=== PATIENT | female | born 1955 | race Caucasian/White ===

== ENCOUNTER 2017-07-30 12:30 | Outpatient (RCR) | payer MEDICARE ==
[~2017-07-30 12:30] MED LIST: ACE325 PO; BACDS PO; CALC-521 PO; CALC-605 PO; CEFU500T50 PO; CEPH500C24 PO; CHOL10005 PO; CLIN300C99 PO; DIPH-740 PO; FURO-45 PO; FURO20TA19 PO; GABA-547 PO; GABA-549 PO; GLUC-396 PO; INSU100C12 SQ; INSU100I34; KET10 PO; LACT1CAP74 PO; LANI SUBQ; LANS15CA54 PO; LANS15TA13 PO; LEVO250T55 PO; LEVO25TA61 PO; LEVO750T44 PO; LEXAPRO; LOR5/325 PO; LYRICA PO; METO25TA23 PO; MIDO5TAB20 PO; MV-M1TAB28; PANT40TA65 PO; PER PO; POT10 PO; RAN150 PO; SITA1TAB16 PO; SUCR1TAB85 PO; VIT-7 PO; ZOS3.375P IV; ZOSYN; [UNRECOGNIZED DRUG - CODE] IVPB; [UNRECOGNIZED DRUG - CODE] PO
== END 2017-09-03 ==
LOC: RESP 12:30
PROVIDERS: ATTEND Internal Medicine
DX: R09.02 Hypoxemia (principal); R06.09 Other forms of dyspnea; I27.20 Pulmonary hypertension, unspecified
CPT/HCPCS: G0239

== ENCOUNTER 2017-08-26 05:47 | Outpatient (RCR) | payer MEDICARE ==
[~2017-08-26 05:47] MED LIST changes: +DEXTROSE 50% 50 ML SYR IVP PRN; +DIALYSIS ACETAMINOPHEN 325 MG PO PRN; +LIDOCAINE/PRILOCAINE 30GM TUBE TP PRN; +LIDOCAINE/SOD BICARB 8.4% SYR ID PRN; +LOPERAMIDE HCL 2 MG CAP PO PRN; +PROMETHAZINE HCL 25 MG TAB PO PRN; +diphenhydr DIALYSIS 50 MG/ML IVP PRN
[2017-08-26] MEDS: HEPARIN SOD (PORCINE) LOAD IVP PRN (10:36)
[2017-08-26] MEDS: HEPARIN (PORCINE) 1000 UNIT/ML (DIALYSIS) IVP PRN (10:36)
[2017-08-28] MEDS: HEPARIN (PORCINE) 1000 UNIT/ML (DIALYSIS) IVP PRN (10:17)
[2017-08-28] MEDS: HEPARIN SOD (PORCINE) LOAD IVP PRN (10:17)
[2017-08-30] MEDS: HEPARIN SOD (PORCINE) LOAD IVP PRN (10:13)
[2017-09-02] MEDS: HEPARIN SOD (PORCINE) LOAD IVP PRN (10:23)
[2017-09-02] MEDS ORDERED: HEPARIN (PORCINE) 1000 UNIT/ML (DIALYSIS) ONE (10:58)
--- NOTE | 2017-09-02 11:06 | NUR ---
had to pull out hourly heparin on override because we did not have any delivered from pharmacy
[2017-09-04] MEDS: HEPARIN SOD (PORCINE) LOAD IVP PRN (10:17)
[2017-09-04] MEDS: HEPARIN (PORCINE) 1000 UNIT/ML (DIALYSIS) IVP PRN (10:17)
[2017-09-04] MEDS: SODIUM FERRIC GLUC 62.5 MG/5ML IVP PRN (11:12)
[2017-09-06] MEDS: HEPARIN (PORCINE) 1000 UNIT/ML (DIALYSIS) IVP PRN (10:19)
[2017-09-06] MEDS: HEPARIN SOD (PORCINE) LOAD IVP PRN (10:20)
[2017-09-09] MEDS: HEPARIN SOD (PORCINE) LOAD IVP PRN (10:19)
[2017-09-09] MEDS: HEPARIN (PORCINE) 1000 UNIT/ML (DIALYSIS) IVP PRN (10:20)
[2017-09-11] MEDS: HEPARIN SOD (PORCINE) LOAD IVP PRN (10:19)
[2017-09-11] MEDS: HEPARIN (PORCINE) 1000 UNIT/ML (DIALYSIS) IVP PRN (10:19)
[2017-09-11 10:50] LABS: PLATELET COUNT, AUTOMATED 131 K/uL (150-450)
[2017-09-13] MEDS: HEPARIN SOD (PORCINE) LOAD IVP PRN (10:19)
[2017-09-13] MEDS: HEPARIN (PORCINE) 1000 UNIT/ML (DIALYSIS) IVP PRN (10:19)
[2017-09-16] MEDS: HEPARIN SOD (PORCINE) LOAD IVP PRN (10:31)
[2017-09-16] MEDS: HEPARIN (PORCINE) 1000 UNIT/ML (DIALYSIS) IVP PRN (10:31)
[2017-09-18] MEDS: HEPARIN (PORCINE) 1000 UNIT/ML (DIALYSIS) IVP PRN (10:23)
[2017-09-18] MEDS: HEPARIN SOD (PORCINE) LOAD IVP PRN (10:23)
[2017-09-18] MEDS: SODIUM FERRIC GLUC 62.5 MG/5ML IVP PRN (12:24)
[2017-09-20] MEDS: HEPARIN SOD (PORCINE) LOAD IVP PRN (10:22)
[2017-09-20] MEDS: HEPARIN (PORCINE) 1000 UNIT/ML (DIALYSIS) IVP PRN (10:23)
[2017-09-23] MEDS: HEPARIN (PORCINE) 1000 UNIT/ML (DIALYSIS) IVP PRN (10:19)
[2017-09-23] MEDS: HEPARIN SOD (PORCINE) LOAD IVP PRN (10:20)
[2017-09-25] MEDS: HEPARIN (PORCINE) 1000 UNIT/ML (DIALYSIS) IVP PRN (13:17)
[2017-09-25] MEDS: HEPARIN SOD (PORCINE) LOAD IVP PRN (13:17)
[2017-10-01] MEDS ORDERED: VANCOMYCIN(*) 1 GM VIAL 1 GM, VANCOMYCIN (*) 0.5 GM VIAL 0.5 GM in NS(*) 0.9% 250 ML BA... IVPB PRN (08:05)
[2017-10-02] MEDS: HEPARIN SOD (PORCINE) LOAD IVP PRN (10:26)
[2017-10-02] MEDS: HEPARIN (PORCINE) 1000 UNIT/ML (DIALYSIS) IVP PRN (10:26)
[2017-10-04] MEDS: HEPARIN (PORCINE) 1000 UNIT/ML (DIALYSIS) IVP PRN (10:32)
[2017-10-04] MEDS: HEPARIN SOD (PORCINE) LOAD IVP PRN (10:32)
[2017-10-04] MEDS ORDERED: DARBEPOETIN ESRD 25 MCG/ML IVP PRN (11:50)
[2017-10-07] MEDS ORDERED: ALTEPLASE RECOMB 2 MG VIAL IVP PRN (08:35)
[2017-10-07] MEDS ORDERED: [UNRECOGNIZED DRUG - OTHER] IVP PRN (08:35)
[2017-10-07] MEDS ORDERED: WATER STERILE 10 ML VIAL IVP PRN (08:35)
[2017-10-07] MEDS ORDERED: HEPARIN (PORCINE) 1000 UNIT/ML (DIALYSIS) ONE (10:31)
[2017-10-07] MEDS: HEPARIN SOD (PORCINE) LOAD IVP PRN (10:33)
[2017-10-07] MEDS: HEPARIN (PORCINE) 1000 UNIT/ML (DIALYSIS) IVP PRN (10:41)
[2017-10-09] MEDS: HEPARIN (PORCINE) 1000 UNIT/ML (DIALYSIS) IVP PRN (10:23)
[2017-10-09] MEDS: HEPARIN SOD (PORCINE) LOAD IVP PRN (10:23)
[2017-10-11] MEDS: HEPARIN (PORCINE) 1000 UNIT/ML (DIALYSIS) IVP PRN (10:05)
[2017-10-11] MEDS: HEPARIN SOD (PORCINE) LOAD IVP PRN (10:06)
[2017-10-11] MEDS ORDERED: DARBEPOETIN ESRD 25 MCG/ML IVP PRN (14:25)
[2017-10-14] MEDS: HEPARIN SOD (PORCINE) LOAD IVP PRN (10:19)
[2017-10-14] MEDS: HEPARIN (PORCINE) 1000 UNIT/ML (DIALYSIS) IVP PRN (10:19)
[2017-10-16] MEDS: HEPARIN (PORCINE) 1000 UNIT/ML (DIALYSIS) IVP PRN (10:18)
[2017-10-16] MEDS: HEPARIN SOD (PORCINE) LOAD IVP PRN (10:19)
[2017-10-16 11:09] LABS: PLATELET COUNT, AUTOMATED 152 K/uL (150-450)
[2017-10-18] MEDS: HEPARIN SOD (PORCINE) LOAD IVP PRN (10:25)
[2017-10-18] MEDS: HEPARIN (PORCINE) 1000 UNIT/ML (DIALYSIS) IVP PRN (10:25)
[2017-10-21] MEDS: HEPARIN SOD (PORCINE) LOAD IVP PRN (10:19)
[2017-10-21] MEDS: HEPARIN (PORCINE) 1000 UNIT/ML (DIALYSIS) IVP PRN (10:19)
[2017-10-23] MEDS: HEPARIN SOD (PORCINE) LOAD IVP PRN (10:23)
[2017-10-23] MEDS: HEPARIN (PORCINE) 1000 UNIT/ML (DIALYSIS) IVP PRN (10:23)
[2017-10-25] MEDS: HEPARIN SOD (PORCINE) LOAD IVP PRN (10:20)
[2017-10-25] MEDS: HEPARIN (PORCINE) 1000 UNIT/ML (DIALYSIS) IVP PRN (10:21)
[2017-10-25] MEDS ORDERED: DARBEPOETIN ESRD 25 MCG/ML IVP PRN (12:20)
[2017-10-28] MEDS: HEPARIN (PORCINE) 1000 UNIT/ML (DIALYSIS) IVP PRN (10:21)
[2017-10-28] MEDS: HEPARIN SOD (PORCINE) LOAD IVP PRN (10:21)
[2017-10-30] MEDS: HEPARIN SOD (PORCINE) LOAD IVP PRN (10:19)
[2017-10-30] MEDS: HEPARIN (PORCINE) 1000 UNIT/ML (DIALYSIS) IVP PRN (10:19)
[2017-11-01] MEDS: HEPARIN (PORCINE) 1000 UNIT/ML (DIALYSIS) IVP PRN (10:22)
[2017-11-01] MEDS: HEPARIN SOD (PORCINE) LOAD IVP PRN (10:22)
[2017-11-04] MEDS: HEPARIN SOD (PORCINE) LOAD IVP PRN (10:24)
[2017-11-04] MEDS: HEPARIN (PORCINE) 1000 UNIT/ML (DIALYSIS) IVP PRN (10:24)
[2017-11-06] MEDS: HEPARIN SOD (PORCINE) LOAD IVP PRN (10:20)
[2017-11-06] MEDS: HEPARIN (PORCINE) 1000 UNIT/ML (DIALYSIS) IVP PRN (10:20)
[2017-11-08] MEDS: HEPARIN SOD (PORCINE) LOAD IVP PRN (10:16)
[2017-11-08] MEDS: HEPARIN (PORCINE) 1000 UNIT/ML (DIALYSIS) IVP PRN (10:17)
[2017-11-11] MEDS: HEPARIN (PORCINE) 1000 UNIT/ML (DIALYSIS) IVP PRN (10:21)
[2017-11-11] MEDS: HEPARIN SOD (PORCINE) LOAD IVP PRN (10:21)
[2017-11-13] MEDS: HEPARIN (PORCINE) 1000 UNIT/ML (DIALYSIS) IVP PRN (10:51)
[2017-11-13] MEDS: HEPARIN SOD (PORCINE) LOAD IVP PRN (10:52)
[2017-11-13 11:16] LABS: PLATELET COUNT, AUTOMATED 161 K/uL (150-450)
[2017-11-15] MEDS: HEPARIN SOD (PORCINE) LOAD IVP PRN (11:13)
[2017-11-15] MEDS: HEPARIN (PORCINE) 1000 UNIT/ML (DIALYSIS) IVP PRN (11:14)
[2017-11-18] MEDS: HEPARIN (PORCINE) 1000 UNIT/ML (DIALYSIS) IVP PRN (10:59)
[2017-11-18] MEDS: HEPARIN SOD (PORCINE) LOAD IVP PRN (10:59)
[2017-11-20] MEDS ORDERED: SODIUM FERRIC GLUC 62.5 MG/5ML IVP PRN (10:30)
[2017-11-20] MEDS: HEPARIN SOD (PORCINE) LOAD IVP PRN (11:01)
[2017-11-20] MEDS: HEPARIN (PORCINE) 1000 UNIT/ML (DIALYSIS) IVP PRN (11:01)
[2017-11-22] MEDS: HEPARIN (PORCINE) 1000 UNIT/ML (DIALYSIS) IVP PRN (11:05)
[2017-11-22] MEDS: HEPARIN SOD (PORCINE) LOAD IVP PRN (11:05)
[2017-11-25] MEDS: HEPARIN SOD (PORCINE) LOAD IVP PRN (11:01)
[2017-11-25] MEDS: HEPARIN (PORCINE) 1000 UNIT/ML (DIALYSIS) IVP PRN (11:01)
[2017-11-27] MEDS: HEPARIN (PORCINE) 1000 UNIT/ML (DIALYSIS) IVP PRN (10:55)
[2017-11-27] MEDS: HEPARIN SOD (PORCINE) LOAD IVP PRN (10:55)
[2017-11-27] MEDS ORDERED: LIDOCAINE/SOD BICARB 8.4% SYR ID PRN (11:45)
[2017-11-27] MEDS ORDERED: diphenhydr DIALYSIS 50 MG/ML IVP PRN (11:45)
[2017-11-27] MEDS ORDERED: DEXTROSE 50% 50 ML SYR IVP PRN (11:45)
[2017-11-27] MEDS ORDERED: LIDOCAINE/PRILOCAINE 30GM TUBE TP PRN (11:50)
[2017-11-27] MEDS ORDERED: [UNRECOGNIZED DRUG - OTHER] IVP PRN (11:50)
[2017-11-27] MEDS ORDERED: PROMETHAZINE HCL 25 MG TAB PO PRN (11:50)
[2017-11-27] MEDS ORDERED: WATER STERILE 10 ML VIAL IVP PRN (11:50)
[2017-11-27] MEDS ORDERED: ALTEPLASE RECOMB 2 MG VIAL IVP PRN (11:50)
[2017-11-27] MEDS: SODIUM FERRIC GLUC 62.5 MG/5ML IVP PRN (11:56)
[2017-11-29] MEDS: HEPARIN (PORCINE) 1000 UNIT/ML (DIALYSIS) IVP PRN (11:01)
[2017-11-29] MEDS: HEPARIN SOD (PORCINE) LOAD IVP PRN (11:02)
[2017-11-29] MEDS: DARBEPOETIN ESRD 25 MCG/ML IVP PRN (13:11)
[2017-12-02] MEDS: HEPARIN (PORCINE) 1000 UNIT/ML (DIALYSIS) IVP PRN (11:01)
[2017-12-02] MEDS: HEPARIN SOD (PORCINE) LOAD IVP PRN (11:02)
[2017-12-04] MEDS: HEPARIN (PORCINE) 1000 UNIT/ML (DIALYSIS) IVP PRN (11:13)
[2017-12-04] MEDS: HEPARIN SOD (PORCINE) LOAD IVP PRN (11:13)
[2017-12-04] MEDS: LOPERAMIDE HCL 2 MG CAP PO PRN (11:32)
[2017-12-04] MEDS: SODIUM FERRIC GLUC 62.5 MG/5ML IVP PRN (11:37)
[2017-12-06] MEDS: HEPARIN SOD (PORCINE) LOAD IVP PRN (10:54)
[2017-12-06] MEDS: HEPARIN (PORCINE) 1000 UNIT/ML (DIALYSIS) IVP PRN (10:54)
[2017-12-09] MEDS: HEPARIN (PORCINE) 1000 UNIT/ML (DIALYSIS) IVP PRN (11:14)
[2017-12-09] MEDS: HEPARIN SOD (PORCINE) LOAD IVP PRN (11:15)
[2017-12-11] MEDS: HEPARIN SOD (PORCINE) LOAD IVP PRN (10:52)
[2017-12-11] MEDS: HEPARIN (PORCINE) 1000 UNIT/ML (DIALYSIS) IVP PRN (10:52)
[2017-12-11] MEDS: SODIUM FERRIC GLUC 62.5 MG/5ML IVP PRN (11:15)
[2017-12-11 11:17] LABS: PLATELET COUNT, AUTOMATED 131 K/uL (150-450)
[2017-12-13] MEDS: HEPARIN SOD (PORCINE) LOAD IVP PRN (10:47)
[2017-12-13] MEDS: HEPARIN (PORCINE) 1000 UNIT/ML (DIALYSIS) IVP PRN (10:47)
[2017-12-13] MEDS: DARBEPOETIN ESRD 25 MCG/ML IVP PRN (11:17)
[2017-12-16] MEDS: HEPARIN SOD (PORCINE) LOAD IVP PRN (10:54)
[2017-12-16] MEDS: HEPARIN (PORCINE) 1000 UNIT/ML (DIALYSIS) IVP PRN (10:54)
[2017-12-16] MEDS: LOPERAMIDE HCL 2 MG CAP PO PRN (10:54)
[2017-12-18] MEDS: HEPARIN SOD (PORCINE) LOAD IVP PRN (11:02)
[2017-12-18] MEDS: HEPARIN (PORCINE) 1000 UNIT/ML (DIALYSIS) IVP PRN (11:03)
[2017-12-18] MEDS: SODIUM FERRIC GLUC 62.5 MG/5ML IVP PRN (11:23)
[2017-12-18] MEDS: LOPERAMIDE HCL 2 MG CAP PO PRN (11:23)
[2017-12-20] MEDS: HEPARIN (PORCINE) 1000 UNIT/ML (DIALYSIS) IVP PRN (11:05)
[2017-12-20] MEDS: HEPARIN SOD (PORCINE) LOAD IVP PRN (11:05)
[2017-12-20] MEDS: LOPERAMIDE HCL 2 MG CAP PO PRN (11:24)
[2017-12-23] MEDS: HEPARIN SOD (PORCINE) LOAD IVP PRN (10:19)
[2017-12-23] MEDS: HEPARIN (PORCINE) 1000 UNIT/ML (DIALYSIS) IVP PRN (10:19)
[2017-12-25] MEDS: HEPARIN (PORCINE) 1000 UNIT/ML (DIALYSIS) IVP PRN (10:24)
[2017-12-25] MEDS: HEPARIN SOD (PORCINE) LOAD IVP PRN (10:25)
[2017-12-25] MEDS: SODIUM FERRIC GLUC 62.5 MG/5ML IVP PRN (11:01)
[2017-12-27] MEDS: HEPARIN SOD (PORCINE) LOAD IVP PRN (10:14)
[2017-12-27] MEDS: HEPARIN (PORCINE) 1000 UNIT/ML (DIALYSIS) IVP PRN (10:14)
[2017-12-27] MEDS: DARBEPOETIN ESRD 25 MCG/ML IVP PRN (10:34)
[2017-12-27] MEDS: LOPERAMIDE HCL 2 MG CAP PO PRN (10:37)
[2017-12-30] MEDS: HEPARIN (PORCINE) 1000 UNIT/ML (DIALYSIS) IVP PRN (10:19)
[2017-12-30] MEDS: HEPARIN SOD (PORCINE) LOAD IVP PRN (10:19)
[2018-01-01] MEDS: HEPARIN (PORCINE) 1000 UNIT/ML (DIALYSIS) IVP PRN (10:33)
[2018-01-01] MEDS: HEPARIN SOD (PORCINE) LOAD IVP PRN (10:33)
[2018-01-01 11:03] LABS: PLATELET COUNT, AUTOMATED 152 K/uL (150-450)
[2018-01-01] MEDS: SODIUM FERRIC GLUC 62.5 MG/5ML IVP PRN (12:35)
[2018-01-03] MEDS: HEPARIN SOD (PORCINE) LOAD IVP PRN (06:38)
[2018-01-03] MEDS: HEPARIN (PORCINE) 1000 UNIT/ML (DIALYSIS) IVP PRN (06:38)
[2018-01-03] MEDS: DARBEPOETIN ESRD 25 MCG/ML IVP PRN (07:12)
[2018-01-03] MEDS: LOPERAMIDE HCL 2 MG CAP PO PRN (07:12)
[2018-01-13] MEDS: HEPARIN SOD (PORCINE) LOAD IVP PRN (10:42)
[2018-01-13] MEDS: HEPARIN (PORCINE) 1000 UNIT/ML (DIALYSIS) IVP PRN (10:42)
[2018-01-15] MEDS: HEPARIN (PORCINE) 1000 UNIT/ML (DIALYSIS) IVP PRN (10:28)
[2018-01-15] MEDS: HEPARIN SOD (PORCINE) LOAD IVP PRN (10:28)
[2018-01-15] MEDS: SODIUM FERRIC GLUC 62.5 MG/5ML IVP PRN (12:35)
[2018-01-17] MEDS: HEPARIN (PORCINE) 1000 UNIT/ML (DIALYSIS) IVP PRN (10:26)
[2018-01-17] MEDS: HEPARIN SOD (PORCINE) LOAD IVP PRN (10:27)
[2018-01-17] MEDS: DARBEPOETIN ESRD 25 MCG/ML IVP PRN (10:35)
[2018-01-20] MEDS: HEPARIN SOD (PORCINE) LOAD IVP PRN (10:32)
[2018-01-20] MEDS: HEPARIN (PORCINE) 1000 UNIT/ML (DIALYSIS) IVP PRN (10:32)
[2018-01-22] MEDS: HEPARIN (PORCINE) 1000 UNIT/ML (DIALYSIS) IVP PRN (10:28)
[2018-01-22] MEDS: HEPARIN SOD (PORCINE) LOAD IVP PRN (10:28)
[2018-01-22] MEDS: SODIUM FERRIC GLUC 62.5 MG/5ML IVP PRN (10:50)
[2018-01-24] MEDS: HEPARIN (PORCINE) 1000 UNIT/ML (DIALYSIS) IVP PRN (10:42)
[2018-01-24] MEDS: HEPARIN SOD (PORCINE) LOAD IVP PRN (10:42)
[2018-01-27] MEDS: HEPARIN SOD (PORCINE) LOAD IVP PRN (10:23)
[2018-01-27] MEDS: HEPARIN (PORCINE) 1000 UNIT/ML (DIALYSIS) IVP PRN (10:23)
[2018-01-29] MEDS: HEPARIN (PORCINE) 1000 UNIT/ML (DIALYSIS) IVP PRN (10:25)
[2018-01-29] MEDS: HEPARIN SOD (PORCINE) LOAD IVP PRN (10:26)
[2018-01-29] MEDS: SODIUM FERRIC GLUC 62.5 MG/5ML IVP PRN (10:52)
[2018-01-31] MEDS: HEPARIN (PORCINE) 1000 UNIT/ML (DIALYSIS) IVP PRN (10:27)
[2018-01-31] MEDS: HEPARIN SOD (PORCINE) LOAD IVP PRN (10:27)
[2018-01-31] MEDS: LOPERAMIDE HCL 2 MG CAP PO PRN (10:27)
[2018-02-03] MEDS: HEPARIN (PORCINE) 1000 UNIT/ML (DIALYSIS) IVP PRN (10:11)
[2018-02-03] MEDS: HEPARIN SOD (PORCINE) LOAD IVP PRN (10:12)
[2018-02-05] MEDS: HEPARIN SOD (PORCINE) LOAD IVP PRN (10:29)
[2018-02-05] MEDS: HEPARIN (PORCINE) 1000 UNIT/ML (DIALYSIS) IVP PRN (10:29)
[2018-02-05] MEDS: SODIUM FERRIC GLUC 62.5 MG/5ML IVP PRN (10:56)
[2018-02-05 11:06] LABS: PLATELET COUNT, AUTOMATED 175 K/uL (150-450)
[2018-02-07] MEDS: HEPARIN (PORCINE) 1000 UNIT/ML (DIALYSIS) IVP PRN (10:20)
[2018-02-07] MEDS: HEPARIN SOD (PORCINE) LOAD IVP PRN (10:21)
[2018-02-10] MEDS: HEPARIN (PORCINE) 1000 UNIT/ML (DIALYSIS) IVP PRN (10:23)
[2018-02-10] MEDS: HEPARIN SOD (PORCINE) LOAD IVP PRN (10:24)
[2018-02-12] MEDS: HEPARIN SOD (PORCINE) LOAD IVP PRN (10:19)
[2018-02-12] MEDS: HEPARIN (PORCINE) 1000 UNIT/ML (DIALYSIS) IVP PRN (10:19)
[2018-02-12] MEDS: SODIUM FERRIC GLUC 62.5 MG/5ML IVP PRN (11:40)
[2018-02-14] MEDS: HEPARIN (PORCINE) 1000 UNIT/ML (DIALYSIS) IVP PRN (10:15)
[2018-02-14] MEDS: HEPARIN SOD (PORCINE) LOAD IVP PRN (10:15)
[2018-02-17] MEDS ORDERED: OMEP-218 PO (08:38)
[2018-02-17] MEDS: HEPARIN (PORCINE) 1000 UNIT/ML (DIALYSIS) IVP PRN (10:12)
[2018-02-17] MEDS: HEPARIN SOD (PORCINE) LOAD IVP PRN (10:12)
[2018-02-17] MEDS: DIALYSIS ACETAMINOPHEN 325 MG PO PRN (13:41)
[2018-02-19] MEDS: HEPARIN (PORCINE) 1000 UNIT/ML (DIALYSIS) IVP PRN (10:23)
[2018-02-19] MEDS: HEPARIN SOD (PORCINE) LOAD IVP PRN (10:23)
[2018-02-19] MEDS: SODIUM FERRIC GLUC 62.5 MG/5ML IVP PRN (10:36)
[2018-02-21] MEDS: HEPARIN (PORCINE) 1000 UNIT/ML (DIALYSIS) IVP PRN (10:14)
[2018-02-21] MEDS: HEPARIN SOD (PORCINE) LOAD IVP PRN (10:14)
[2018-02-24] MEDS: HEPARIN (PORCINE) 1000 UNIT/ML (DIALYSIS) IVP PRN (10:34)
[2018-02-24] MEDS: HEPARIN SOD (PORCINE) LOAD IVP PRN (10:35)
[2018-02-26] MEDS: HEPARIN (PORCINE) 1000 UNIT/ML (DIALYSIS) IVP PRN (10:15)
[2018-02-26] MEDS: HEPARIN SOD (PORCINE) LOAD IVP PRN (10:15)
[2018-02-26] MEDS: SODIUM FERRIC GLUC 62.5 MG/5ML IVP PRN (10:30)
[2018-02-28] MEDS: HEPARIN SOD (PORCINE) LOAD IVP PRN (10:28)
[2018-02-28] MEDS: HEPARIN (PORCINE) 1000 UNIT/ML (DIALYSIS) IVP PRN (10:28)
[2018-03-03] MEDS: HEPARIN SOD (PORCINE) LOAD IVP PRN (10:26)
[2018-03-03] MEDS: HEPARIN (PORCINE) 1000 UNIT/ML (DIALYSIS) IVP PRN (10:26)
[2018-03-03] MEDS: LOPERAMIDE HCL 2 MG CAP PO PRN (10:33)
[2018-03-05] MEDS: HEPARIN SOD (PORCINE) LOAD IVP PRN (10:33)
[2018-03-05] MEDS: HEPARIN (PORCINE) 1000 UNIT/ML (DIALYSIS) IVP PRN (10:33)
[2018-03-05] MEDS: SODIUM FERRIC GLUC 62.5 MG/5ML IVP PRN (10:58)
[2018-03-07] MEDS: HEPARIN SOD (PORCINE) LOAD IVP PRN (10:27)
[2018-03-07] MEDS: HEPARIN (PORCINE) 1000 UNIT/ML (DIALYSIS) IVP PRN (10:27)
[2018-03-10] MEDS: HEPARIN SOD (PORCINE) LOAD IVP PRN (10:19)
[2018-03-10] MEDS: HEPARIN (PORCINE) 1000 UNIT/ML (DIALYSIS) IVP PRN (10:19)
[2018-03-12] MEDS: HEPARIN SOD (PORCINE) LOAD IVP PRN (10:16)
[2018-03-12] MEDS: HEPARIN (PORCINE) 1000 UNIT/ML (DIALYSIS) IVP PRN (10:16)
[2018-03-12] MEDS: SODIUM FERRIC GLUC 62.5 MG/5ML IVP PRN (10:28)
[2018-03-12 10:41] LABS: PLATELET COUNT, AUTOMATED 241 K/uL (150-450)
[2018-03-14] MEDS: HEPARIN SOD (PORCINE) LOAD IVP PRN (10:22)
[2018-03-14] MEDS: HEPARIN (PORCINE) 1000 UNIT/ML (DIALYSIS) IVP PRN (10:22)
[2018-03-17] MEDS: HEPARIN SOD (PORCINE) LOAD IVP PRN (10:23)
[2018-03-17] MEDS: HEPARIN (PORCINE) 1000 UNIT/ML (DIALYSIS) IVP PRN (10:23)
[2018-03-19] MEDS ORDERED: INSULIN (09:56)
[2018-03-19] MEDS ORDERED: HYDR-385 PO (09:56)
[2018-03-26] MEDS ORDERED: CALC-521 PO (08:36)
[2018-03-26] MEDS ORDERED: MIDO5TAB20 PO (08:44)
[2018-03-26] MEDS ORDERED: GLUC-198 PO (08:44)
[2018-03-26] MEDS ORDERED: FURO-47 PO (08:44)
[2018-03-26] MEDS ORDERED: VIT-7 PO (08:44)
[2018-03-26] MEDS ORDERED: GABA-547 PO (08:44)
[2018-03-26] MEDS ORDERED: FURO20TA19 PO (08:44)
[2018-03-26] MEDS: HEPARIN (PORCINE) 1000 UNIT/ML (DIALYSIS) IVP PRN (10:15)
[2018-03-26] MEDS: HEPARIN SOD (PORCINE) LOAD IVP PRN (10:16)
[2018-03-28] MEDS: HEPARIN SOD (PORCINE) LOAD IVP PRN (10:21)
[2018-03-28] MEDS: HEPARIN (PORCINE) 1000 UNIT/ML (DIALYSIS) IVP PRN (10:21)
[2018-03-31] MEDS: HEPARIN SOD (PORCINE) LOAD IVP PRN (10:29)
[2018-03-31] MEDS: HEPARIN (PORCINE) 1000 UNIT/ML (DIALYSIS) IVP PRN (10:29)
[2018-04-02] MEDS: HEPARIN (PORCINE) 1000 UNIT/ML (DIALYSIS) IVP PRN (10:37)
[2018-04-02] MEDS: HEPARIN SOD (PORCINE) LOAD IVP PRN (10:37)
[2018-04-02 11:11] LABS: PLATELET COUNT, AUTOMATED 139 K/uL (150-450)
[2018-04-04] MEDS: HEPARIN (PORCINE) 1000 UNIT/ML (DIALYSIS) IVP PRN (10:11)
[2018-04-04] MEDS: HEPARIN SOD (PORCINE) LOAD IVP PRN (10:11)
[2018-04-07] MEDS: HEPARIN (PORCINE) 1000 UNIT/ML (DIALYSIS) IVP PRN (10:09)
[2018-04-07] MEDS: HEPARIN SOD (PORCINE) LOAD IVP PRN (10:09)
[2018-04-09] MEDS: HEPARIN SOD (PORCINE) LOAD IVP PRN (10:32)
[2018-04-09] MEDS: HEPARIN (PORCINE) 1000 UNIT/ML (DIALYSIS) IVP PRN (10:33)
[2018-04-09] MEDS: LOPERAMIDE HCL 2 MG CAP PO PRN (10:33)
[2018-04-11] MEDS: HEPARIN (PORCINE) 1000 UNIT/ML (DIALYSIS) IVP PRN (10:15)
[2018-04-11] MEDS: HEPARIN SOD (PORCINE) LOAD IVP PRN (10:15)
[2018-04-14] MEDS: HEPARIN (PORCINE) 1000 UNIT/ML (DIALYSIS) IVP PRN (10:25)
[2018-04-14] MEDS: HEPARIN SOD (PORCINE) LOAD IVP PRN (10:26)
[2018-04-16] MEDS: HEPARIN SOD (PORCINE) LOAD IVP PRN (10:52)
[2018-04-16] MEDS: HEPARIN (PORCINE) 1000 UNIT/ML (DIALYSIS) IVP PRN (10:52)
[2018-04-16] MEDS ORDERED: CALC-521 PO (12:51)
[2018-04-18] MEDS: HEPARIN (PORCINE) 1000 UNIT/ML (DIALYSIS) IVP PRN (10:30)
[2018-04-18] MEDS: HEPARIN SOD (PORCINE) LOAD IVP PRN (10:30)
[2018-04-21] MEDS: HEPARIN (PORCINE) 1000 UNIT/ML (DIALYSIS) IVP PRN (10:22)
[2018-04-21] MEDS: HEPARIN SOD (PORCINE) LOAD IVP PRN (10:22)
[2018-04-23] MEDS: HEPARIN SOD (PORCINE) LOAD IVP PRN (10:27)
[2018-04-23] MEDS: HEPARIN (PORCINE) 1000 UNIT/ML (DIALYSIS) IVP PRN (10:28)
[2018-04-25] MEDS: HEPARIN (PORCINE) 1000 UNIT/ML (DIALYSIS) IVP PRN (10:26)
[2018-04-25] MEDS: HEPARIN SOD (PORCINE) LOAD IVP PRN (10:26)
[2018-04-28] MEDS: HEPARIN SOD (PORCINE) LOAD IVP PRN (10:26)
[2018-04-28] MEDS: HEPARIN (PORCINE) 1000 UNIT/ML (DIALYSIS) IVP PRN (10:26)
[2018-04-30] MEDS: HEPARIN SOD (PORCINE) LOAD IVP PRN (10:25)
[2018-04-30] MEDS: HEPARIN (PORCINE) 1000 UNIT/ML (DIALYSIS) IVP PRN (10:25)
[2018-05-02] MEDS: HEPARIN SOD (PORCINE) LOAD IVP PRN (10:34)
[2018-05-02] MEDS: HEPARIN (PORCINE) 1000 UNIT/ML (DIALYSIS) IVP PRN (10:34)
[2018-05-05] MEDS: HEPARIN SOD (PORCINE) LOAD IVP PRN (10:25)
[2018-05-05] MEDS: HEPARIN (PORCINE) 1000 UNIT/ML (DIALYSIS) IVP PRN (10:26)
[2018-05-07] MEDS: HEPARIN (PORCINE) 1000 UNIT/ML (DIALYSIS) IVP PRN (10:29)
[2018-05-07] MEDS: HEPARIN SOD (PORCINE) LOAD IVP PRN (10:29)
[2018-05-09] MEDS: HEPARIN (PORCINE) 1000 UNIT/ML (DIALYSIS) IVP PRN (10:31)
[2018-05-09] MEDS: HEPARIN SOD (PORCINE) LOAD IVP PRN (10:31)
[2018-05-12] MEDS: HEPARIN (PORCINE) 1000 UNIT/ML (DIALYSIS) IVP PRN (10:19)
[2018-05-12] MEDS: HEPARIN SOD (PORCINE) LOAD IVP PRN (10:20)
[2018-05-14] MEDS: HEPARIN SOD (PORCINE) LOAD IVP PRN (10:22)
[2018-05-14] MEDS: HEPARIN (PORCINE) 1000 UNIT/ML (DIALYSIS) IVP PRN (10:22)
[2018-05-14 11:48] LABS: PLATELET COUNT, AUTOMATED 151 K/uL (150-450)
[2018-05-16] MEDS: HEPARIN SOD (PORCINE) LOAD IVP PRN (10:44)
[2018-05-16] MEDS: HEPARIN (PORCINE) 1000 UNIT/ML (DIALYSIS) IVP PRN (10:44)
[2018-05-19] MEDS: HEPARIN (PORCINE) 1000 UNIT/ML (DIALYSIS) IVP PRN (10:13)
[2018-05-19] MEDS: HEPARIN SOD (PORCINE) LOAD IVP PRN (10:14)
[2018-05-21] MEDS: HEPARIN SOD (PORCINE) LOAD IVP PRN (10:24)
[2018-05-21] MEDS: HEPARIN (PORCINE) 1000 UNIT/ML (DIALYSIS) IVP PRN (10:24)
[2018-05-21] MEDS ORDERED: INFLUENZA VIRUS VAC 0.5ML SYR IM ONLY ONE (13:30)
[2018-05-23] MEDS: HEPARIN (PORCINE) 1000 UNIT/ML (DIALYSIS) IVP PRN (10:29)
[2018-05-23] MEDS: HEPARIN SOD (PORCINE) LOAD IVP PRN (10:31)
[2018-05-26] MEDS: HEPARIN SOD (PORCINE) LOAD IVP PRN (10:24)
[2018-05-26] MEDS: HEPARIN (PORCINE) 1000 UNIT/ML (DIALYSIS) IVP PRN (10:24)
[2018-05-28] MEDS: HEPARIN (PORCINE) 1000 UNIT/ML (DIALYSIS) IVP PRN (10:33)
[2018-05-28] MEDS: HEPARIN SOD (PORCINE) LOAD IVP PRN (10:34)
[2018-05-30] MEDS: HEPARIN SOD (PORCINE) LOAD IVP PRN (10:30)
[2018-05-30] MEDS: HEPARIN (PORCINE) 1000 UNIT/ML (DIALYSIS) IVP PRN (10:31)
[2018-06-02] MEDS: HEPARIN (PORCINE) 1000 UNIT/ML (DIALYSIS) IVP PRN (09:59)
[2018-06-02] MEDS: HEPARIN SOD (PORCINE) LOAD IVP PRN (09:59)
[2018-06-04] MEDS: HEPARIN SOD (PORCINE) LOAD IVP PRN (10:30)
[2018-06-04] MEDS: HEPARIN (PORCINE) 1000 UNIT/ML (DIALYSIS) IVP PRN (10:31)
[2018-06-06] MEDS: HEPARIN (PORCINE) 1000 UNIT/ML (DIALYSIS) IVP PRN (10:19)
[2018-06-06] MEDS: HEPARIN SOD (PORCINE) LOAD IVP PRN (10:19)
[2018-06-09] MEDS: HEPARIN (PORCINE) 1000 UNIT/ML (DIALYSIS) IVP PRN (10:31)
[2018-06-09] MEDS: HEPARIN SOD (PORCINE) LOAD IVP PRN (10:31)
[2018-06-11] MEDS: HEPARIN SOD (PORCINE) LOAD IVP PRN (10:27)
[2018-06-11] MEDS: HEPARIN (PORCINE) 1000 UNIT/ML (DIALYSIS) IVP PRN (10:27)
[2018-06-13] MEDS: HEPARIN (PORCINE) 1000 UNIT/ML (DIALYSIS) IVP PRN (10:19)
[2018-06-13] MEDS: HEPARIN SOD (PORCINE) LOAD IVP PRN (10:19)
[2018-06-16] MEDS: HEPARIN SOD (PORCINE) LOAD IVP PRN (10:29)
[2018-06-16] MEDS: HEPARIN (PORCINE) 1000 UNIT/ML (DIALYSIS) IVP PRN (10:29)
[2018-06-18] MEDS: HEPARIN SOD (PORCINE) LOAD IVP PRN (10:30)
[2018-06-18] MEDS: HEPARIN (PORCINE) 1000 UNIT/ML (DIALYSIS) IVP PRN (10:31)
[2018-06-18 10:58] LABS: PLATELET COUNT, AUTOMATED 158 K/uL (150-450)
[2018-06-20] MEDS: HEPARIN SOD (PORCINE) LOAD IVP PRN (10:29)
[2018-06-20] MEDS: HEPARIN (PORCINE) 1000 UNIT/ML (DIALYSIS) IVP PRN (10:29)
[2018-06-23] MEDS: HEPARIN (PORCINE) 1000 UNIT/ML (DIALYSIS) IVP PRN (10:35)
[2018-06-23] MEDS: HEPARIN SOD (PORCINE) LOAD IVP PRN (10:35)
[2018-06-25] MEDS: HEPARIN (PORCINE) 1000 UNIT/ML (DIALYSIS) IVP PRN (10:33)
[2018-06-25] MEDS: HEPARIN SOD (PORCINE) LOAD IVP PRN (10:33)
[2018-06-25] MEDS ORDERED: SEVE800T16 PO (11:19)
[2018-06-25] MEDS ORDERED: FAMO20TA28 PO (13:28)
[2018-06-27] MEDS ORDERED: SEVE800T16 PO (07:32)
[2018-06-27] MEDS: LOPERAMIDE HCL 2 MG CAP PO PRN (10:59)
[2018-06-30] MEDS: HEPARIN SOD (PORCINE) LOAD IVP PRN (10:39)
[2018-07-02] MEDS: HEPARIN (PORCINE) 1000 UNIT/ML (DIALYSIS) IVP PRN (10:11)
[2018-07-02] MEDS: HEPARIN SOD (PORCINE) LOAD IVP PRN (10:11)
[2018-07-04] MEDS: HEPARIN (PORCINE) 1000 UNIT/ML (DIALYSIS) IVP PRN (10:35)
[2018-07-04] MEDS: HEPARIN SOD (PORCINE) LOAD IVP PRN (10:35)
[2018-07-07] MEDS: HEPARIN SOD (PORCINE) LOAD IVP PRN (10:14)
[2018-07-07] MEDS: HEPARIN (PORCINE) 1000 UNIT/ML (DIALYSIS) IVP PRN (10:14)
[2018-07-09] MEDS: HEPARIN (PORCINE) 1000 UNIT/ML (DIALYSIS) IVP PRN (10:21)
[2018-07-09] MEDS: HEPARIN SOD (PORCINE) LOAD IVP PRN (10:21)
[2018-07-11] MEDS: HEPARIN (PORCINE) 1000 UNIT/ML (DIALYSIS) IVP PRN (10:28)
[2018-07-11] MEDS: HEPARIN SOD (PORCINE) LOAD IVP PRN (10:28)
[2018-07-11] MEDS: LOPERAMIDE HCL 2 MG CAP PO PRN (10:52)
[2018-07-14] MEDS: HEPARIN SOD (PORCINE) LOAD IVP PRN (10:08)
[2018-07-14] MEDS: HEPARIN (PORCINE) 1000 UNIT/ML (DIALYSIS) IVP PRN (10:08)
[2018-07-16] MEDS: HEPARIN (PORCINE) 1000 UNIT/ML (DIALYSIS) IVP PRN (10:29)
[2018-07-16] MEDS: HEPARIN SOD (PORCINE) LOAD IVP PRN (10:29)
[2018-07-16 11:55] LABS: PLATELET COUNT, AUTOMATED 140 K/uL (150-450)
[2018-07-19] MEDS: HEPARIN SOD (PORCINE) LOAD IVP PRN (06:01)
[2018-07-19] MEDS: HEPARIN (PORCINE) 1000 UNIT/ML (DIALYSIS) IVP PRN (06:01)
[2018-07-22] MEDS: HEPARIN (PORCINE) 1000 UNIT/ML (DIALYSIS) IVP PRN (10:03)
[2018-07-22] MEDS: HEPARIN SOD (PORCINE) LOAD IVP PRN (10:03)
[2018-07-23] MEDS: HEPARIN (PORCINE) 1000 UNIT/ML (DIALYSIS) IVP PRN (10:12)
[2018-07-23] MEDS: HEPARIN SOD (PORCINE) LOAD IVP PRN (10:12)
[2018-07-25] MEDS: HEPARIN SOD (PORCINE) LOAD IVP PRN (10:11)
[2018-07-25] MEDS: HEPARIN (PORCINE) 1000 UNIT/ML (DIALYSIS) IVP PRN (10:12)
[2018-07-28] MEDS: HEPARIN (PORCINE) 1000 UNIT/ML (DIALYSIS) IVP PRN (10:22)
[2018-07-28] MEDS: HEPARIN SOD (PORCINE) LOAD IVP PRN (10:22)
[2018-07-30] MEDS: HEPARIN (PORCINE) 1000 UNIT/ML (DIALYSIS) IVP PRN (10:08)
[2018-07-30] MEDS: HEPARIN SOD (PORCINE) LOAD IVP PRN (10:08)
[2018-07-30 10:36] LABS: PLATELET COUNT, AUTOMATED 160 K/uL (150-450)
[2018-08-01] MEDS: HEPARIN (PORCINE) 1000 UNIT/ML (DIALYSIS) IVP PRN (09:56)
[2018-08-01] MEDS: HEPARIN SOD (PORCINE) LOAD IVP PRN (09:56)
[2018-08-01] MEDS: LOPERAMIDE HCL 2 MG CAP PO PRN (10:14)
[2018-08-04] MEDS: HEPARIN SOD (PORCINE) LOAD IVP PRN (10:02)
[2018-08-04] MEDS: HEPARIN (PORCINE) 1000 UNIT/ML (DIALYSIS) IVP PRN (10:02)
[2018-08-06] MEDS: HEPARIN SOD (PORCINE) LOAD IVP PRN (09:54)
[2018-08-06] MEDS: HEPARIN (PORCINE) 1000 UNIT/ML (DIALYSIS) IVP PRN (09:54)
[2018-08-08] MEDS: HEPARIN (PORCINE) 1000 UNIT/ML (DIALYSIS) IVP PRN (09:59)
[2018-08-08] MEDS: HEPARIN SOD (PORCINE) LOAD IVP PRN (10:00)
[2018-08-11] MEDS: HEPARIN SOD (PORCINE) LOAD IVP PRN (10:14)
[2018-08-11] MEDS: HEPARIN (PORCINE) 1000 UNIT/ML (DIALYSIS) IVP PRN (10:14)
[2018-08-13] MEDS: HEPARIN (PORCINE) 1000 UNIT/ML (DIALYSIS) IVP PRN (10:06)
[2018-08-13] MEDS: HEPARIN SOD (PORCINE) LOAD IVP PRN (10:07)
[2018-08-15] MEDS: HEPARIN SOD (PORCINE) LOAD IVP PRN (10:25)
[2018-08-15] MEDS: HEPARIN (PORCINE) 1000 UNIT/ML (DIALYSIS) IVP PRN (10:25)
[2018-08-15] MEDS: LOPERAMIDE HCL 2 MG CAP PO PRN (10:26)
[2018-08-17] MEDS: HEPARIN (PORCINE) 1000 UNIT/ML (DIALYSIS) IVP PRN (10:07)
[2018-08-17] MEDS: HEPARIN SOD (PORCINE) LOAD IVP PRN (10:07)
[2018-08-17] MEDS: DIALYSIS ACETAMINOPHEN 325 MG PO PRN (12:49)
[2018-08-20] MEDS: HEPARIN SOD (PORCINE) LOAD IVP PRN (09:56)
[2018-08-20] MEDS: HEPARIN (PORCINE) 1000 UNIT/ML (DIALYSIS) IVP PRN (09:56)
[2018-08-22] MEDS: HEPARIN SOD (PORCINE) LOAD IVP PRN (10:10)
[2018-08-22] MEDS: HEPARIN (PORCINE) 1000 UNIT/ML (DIALYSIS) IVP PRN (10:10)
[2018-08-25] MEDS: HEPARIN SOD (PORCINE) LOAD IVP PRN (09:57)
[2018-08-25] MEDS: HEPARIN (PORCINE) 1000 UNIT/ML (DIALYSIS) IVP PRN (09:58)
== END 2018-08-25 18:04 | disposition home or self-care (01) ==
LOC: DIAL 05:47
PROVIDERS: ATTEND Internal Medicine Nephrology
DX: E11.22 Type 2 diabetes mellitus with diabetic chronic kidney disease (principal); N18.6 End stage renal disease; I95.3 Hypotension of hemodialysis; D63.1 Anemia in chronic kidney disease; M85.9 Disorder of bone density and structure, unspecified; E83.89 Other disorders of mineral metabolism; E83.52 Hypercalcemia; E46 Unspecified protein-calorie malnutrition; T82.868A Thrombosis due to vascular prosthetic devices, implants and grafts, initial encounter; Z99.2 Dependence on renal dialysis; L03.011 Cellulitis of right finger; A41.02 Sepsis due to Methicillin resistant Staphylococcus aureus; B95.62 Methicillin resistant Staphylococcus aureus infection as the cause of diseases classified elsewhere; I12.0 Hypertensive chronic kidney disease with stage 5 chronic kidney disease or end stage renal disease
CPT/HCPCS: 82040; 82108; 82247; 82306; 82310; 82374; 82465; 82565; 82728; 82947; 83036; 83540; 83550; 83970; 84075; 84100; 84132; 84295; 84460; 84478; 84520; 85018; 85025; 86580; 86706; 87340; 90999; A4657; A9270; G0008; G0472; J0882; J1644; J2916; Q2037; 86803; 90658; 90674

== ENCOUNTER → 2017-08-26 09:21 | Outpatient (RCR) | payer MEDICARE ==
[2016-08-27] MEDS: HEPARIN SOD (PORCINE) LOAD IVP PRN (11:05)
[2016-08-27] MEDS: HEPARIN SOD (PORCINE) UNIT/HR IVP PRN (11:05)
[2016-08-29] MEDS: HEPARIN SOD (PORCINE) UNIT/HR IVP PRN (11:09)
[2016-08-29] MEDS: HEPARIN SOD (PORCINE) LOAD IVP PRN (11:09)
[2016-08-31] MEDS: HEPARIN SOD (PORCINE) UNIT/HR IVP PRN (11:13)
[2016-08-31] MEDS: HEPARIN SOD (PORCINE) LOAD IVP PRN (11:13)
[2016-08-31] MEDS: LOPERAMIDE HCL 2 MG CAP PO PRN (12:01)
[2016-09-03] MEDS: HEPARIN SOD (PORCINE) UNIT/HR IVP PRN (11:03)
[2016-09-03] MEDS: HEPARIN SOD (PORCINE) LOAD IVP PRN (11:03)
[2016-09-05] MEDS: HEPARIN SOD (PORCINE) UNIT/HR IVP PRN (11:01)
[2016-09-05] MEDS: HEPARIN SOD (PORCINE) LOAD IVP PRN (11:02)
[2016-09-05 13:39] LABS: PLATELET COUNT, AUTOMATED 121 K/uL (150-450)
[2016-09-07] MEDS: HEPARIN SOD (PORCINE) LOAD IVP PRN (10:56)
[2016-09-07] MEDS: HEPARIN SOD (PORCINE) UNIT/HR IVP PRN (10:57)
[2016-09-10] MEDS: HEPARIN SOD (PORCINE) UNIT/HR IVP PRN (10:56)
[2016-09-10] MEDS: HEPARIN SOD (PORCINE) LOAD IVP PRN (10:56)
[2016-09-12] MEDS: HEPARIN SOD (PORCINE) LOAD IVP PRN (11:06)
[2016-09-12] MEDS: HEPARIN SOD (PORCINE) UNIT/HR IVP PRN (11:06)
[2016-09-12] MEDS: SODIUM FERRIC GLUC 62.5 MG/5ML IVP PRN (12:17)
[2016-09-14] MEDS: HEPARIN SOD (PORCINE) UNIT/HR IVP PRN (11:02)
[2016-09-14] MEDS: HEPARIN SOD (PORCINE) LOAD IVP PRN (11:02)
[2016-09-14] MEDS: SODIUM FERRIC GLUC 62.5 MG/5ML IVP PRN (11:37)
[2016-09-14] MEDS: LOPERAMIDE HCL 2 MG CAP PO PRN (11:38)
[2016-09-17] MEDS: HEPARIN SOD (PORCINE) LOAD IVP PRN (11:15)
[2016-09-17] MEDS: HEPARIN SOD (PORCINE) UNIT/HR IVP PRN (11:15)
[2016-09-17] MEDS: SODIUM FERRIC GLUC 62.5 MG/5ML IVP PRN (11:56)
[2016-09-19] MEDS: HEPARIN SOD (PORCINE) LOAD IVP PRN (11:11)
[2016-09-19] MEDS: HEPARIN SOD (PORCINE) UNIT/HR IVP PRN (11:11)
[2016-09-19] MEDS: SODIUM FERRIC GLUC 62.5 MG/5ML IVP PRN (11:28)
[2016-09-19] MEDS: LOPERAMIDE HCL 2 MG CAP PO PRN (11:33)
[2016-09-21] MEDS: HEPARIN SOD (PORCINE) UNIT/HR IVP PRN (11:06)
[2016-09-21] MEDS: HEPARIN SOD (PORCINE) LOAD IVP PRN (11:06)
[2016-09-21] MEDS: SODIUM FERRIC GLUC 62.5 MG/5ML IVP PRN (13:14)
[2016-09-24] MEDS: HEPARIN SOD (PORCINE) UNIT/HR IVP PRN (11:02)
[2016-09-24] MEDS: HEPARIN SOD (PORCINE) LOAD IVP PRN (11:02)
[2016-09-24] MEDS: SODIUM FERRIC GLUC 62.5 MG/5ML IVP PRN (11:23)
[2016-09-26] MEDS: HEPARIN SOD (PORCINE) LOAD IVP PRN (11:12)
[2016-09-26] MEDS: HEPARIN SOD (PORCINE) UNIT/HR IVP PRN (11:12)
[2016-09-26] MEDS: SODIUM FERRIC GLUC 62.5 MG/5ML IVP PRN (11:17)
[2016-09-28] MEDS: HEPARIN SOD (PORCINE) UNIT/HR IVP PRN (11:00)
[2016-09-28] MEDS: HEPARIN SOD (PORCINE) LOAD IVP PRN (11:00)
[2016-09-28] MEDS: SODIUM FERRIC GLUC 62.5 MG/5ML IVP PRN (11:06)
[2016-10-01] MEDS: HEPARIN SOD (PORCINE) LOAD IVP PRN (11:10)
[2016-10-01] MEDS: HEPARIN SOD (PORCINE) UNIT/HR IVP PRN (11:10)
[2016-10-01] MEDS: DIALYSIS ACETAMINOPHEN 325 MG PO PRN (13:51)
[2016-10-03] MEDS: HEPARIN SOD (PORCINE) LOAD IVP PRN (10:59)
[2016-10-03] MEDS: HEPARIN SOD (PORCINE) UNIT/HR IVP PRN (10:59)
[2016-10-03] MEDS: SODIUM FERRIC GLUC 62.5 MG/5ML IVP PRN (11:23)
[2016-10-05] MEDS: HEPARIN SOD (PORCINE) LOAD IVP PRN (10:59)
[2016-10-05] MEDS: HEPARIN SOD (PORCINE) UNIT/HR IVP PRN (10:59)
[2016-10-08] MEDS: HEPARIN SOD (PORCINE) LOAD IVP PRN (10:58)
[2016-10-08] MEDS: HEPARIN SOD (PORCINE) UNIT/HR IVP PRN (10:58)
[2016-10-10] MEDS: HEPARIN SOD (PORCINE) LOAD IVP PRN (11:08)
[2016-10-10] MEDS: HEPARIN SOD (PORCINE) UNIT/HR IVP PRN (11:08)
[2016-10-10] MEDS: SODIUM FERRIC GLUC 62.5 MG/5ML IVP PRN (11:27)
[2016-10-10 11:46] LABS: PLATELET COUNT, AUTOMATED 122 K/uL (150-450)
[2016-10-12] MEDS: HEPARIN SOD (PORCINE) UNIT/HR IVP PRN (11:21)
[2016-10-12] MEDS: HEPARIN SOD (PORCINE) LOAD IVP PRN (11:21)
[2016-10-15] MEDS: HEPARIN SOD (PORCINE) UNIT/HR IVP PRN (11:05)
[2016-10-15] MEDS: HEPARIN SOD (PORCINE) LOAD IVP PRN (11:05)
[2016-10-17] MEDS: HEPARIN SOD (PORCINE) LOAD IVP PRN (11:01)
[2016-10-17] MEDS: HEPARIN SOD (PORCINE) UNIT/HR IVP PRN (11:01)
[2016-10-17] MEDS: SODIUM FERRIC GLUC 62.5 MG/5ML IVP PRN (11:28)
[2016-10-19] MEDS: HEPARIN SOD (PORCINE) LOAD IVP PRN (11:03)
[2016-10-19] MEDS: HEPARIN SOD (PORCINE) UNIT/HR IVP PRN (11:03)
[2016-10-22] MEDS: HEPARIN SOD (PORCINE) UNIT/HR IVP PRN (11:00)
[2016-10-22] MEDS: HEPARIN SOD (PORCINE) LOAD IVP PRN (11:00)
[2016-10-24] MEDS: HEPARIN SOD (PORCINE) LOAD IVP PRN (10:55)
[2016-10-24] MEDS: HEPARIN SOD (PORCINE) UNIT/HR IVP PRN (10:55)
[2016-10-24] MEDS: SODIUM FERRIC GLUC 62.5 MG/5ML IVP PRN (11:13)
[2016-10-26] MEDS: HEPARIN SOD (PORCINE) LOAD IVP PRN (11:27)
[2016-10-26] MEDS: HEPARIN SOD (PORCINE) UNIT/HR IVP PRN (11:27)
[2016-10-29] MEDS: HEPARIN SOD (PORCINE) UNIT/HR IVP PRN (11:06)
[2016-10-29] MEDS: HEPARIN SOD (PORCINE) LOAD IVP PRN (11:07)
[2016-10-31] MEDS: HEPARIN SOD (PORCINE) LOAD IVP PRN (10:58)
[2016-10-31] MEDS: HEPARIN SOD (PORCINE) UNIT/HR IVP PRN (10:59)
[2016-10-31] MEDS: SODIUM FERRIC GLUC 62.5 MG/5ML IVP PRN (11:18)
[2016-11-02] MEDS: HEPARIN SOD (PORCINE) UNIT/HR IVP PRN (10:58)
[2016-11-02] MEDS: HEPARIN SOD (PORCINE) LOAD IVP PRN (10:58)
[2016-11-05] MEDS: HEPARIN SOD (PORCINE) UNIT/HR IVP PRN (10:53)
[2016-11-05] MEDS: HEPARIN SOD (PORCINE) LOAD IVP PRN (10:53)
[2016-11-07] MEDS: HEPARIN SOD (PORCINE) LOAD IVP PRN (11:08)
[2016-11-07] MEDS: HEPARIN SOD (PORCINE) UNIT/HR IVP PRN (11:09)
[2016-11-07] MEDS: SODIUM FERRIC GLUC 62.5 MG/5ML IVP PRN (11:57)
[2016-11-07 12:11] LABS: PLATELET COUNT, AUTOMATED 126 K/uL (150-450)
[2016-11-09] MEDS: HEPARIN SOD (PORCINE) UNIT/HR IVP PRN (10:55)
[2016-11-09] MEDS: HEPARIN SOD (PORCINE) LOAD IVP PRN (10:55)
[2016-11-12] MEDS: HEPARIN SOD (PORCINE) LOAD IVP PRN (10:58)
[2016-11-12] MEDS: HEPARIN SOD (PORCINE) UNIT/HR IVP PRN (10:58)
[2016-11-14] MEDS: HEPARIN SOD (PORCINE) LOAD IVP PRN (11:03)
[2016-11-14] MEDS: HEPARIN SOD (PORCINE) UNIT/HR IVP PRN (11:03)
[2016-11-14] MEDS: SODIUM FERRIC GLUC 62.5 MG/5ML IVP PRN (11:43)
[2016-11-16] MEDS: HEPARIN SOD (PORCINE) LOAD IVP PRN (10:59)
[2016-11-16] MEDS: HEPARIN SOD (PORCINE) UNIT/HR IVP PRN (10:59)
[2016-11-19] MEDS: HEPARIN SOD (PORCINE) UNIT/HR IVP PRN (11:00)
[2016-11-19] MEDS: HEPARIN SOD (PORCINE) LOAD IVP PRN (11:00)
[2016-11-21] MEDS: HEPARIN SOD (PORCINE) UNIT/HR IVP PRN (11:07)
[2016-11-21] MEDS: HEPARIN SOD (PORCINE) LOAD IVP PRN (11:07)
[2016-11-21] MEDS: SODIUM FERRIC GLUC 62.5 MG/5ML IVP PRN (11:39)
[2016-11-23] MEDS: HEPARIN SOD (PORCINE) LOAD IVP PRN (11:10)
[2016-11-23] MEDS: HEPARIN SOD (PORCINE) UNIT/HR IVP PRN (11:11)
[2016-11-26] MEDS: HEPARIN SOD (PORCINE) UNIT/HR IVP PRN (11:23)
[2016-11-26] MEDS: HEPARIN SOD (PORCINE) LOAD IVP PRN (11:23)
[2016-11-28] MEDS: HEPARIN SOD (PORCINE) LOAD IVP PRN (11:05)
[2016-11-28] MEDS: HEPARIN SOD (PORCINE) UNIT/HR IVP PRN (11:05)
[2016-11-28] MEDS: SODIUM FERRIC GLUC 62.5 MG/5ML IVP PRN (11:28)
[2016-11-30] MEDS: HEPARIN SOD (PORCINE) UNIT/HR IVP PRN (11:01)
[2016-11-30] MEDS: HEPARIN SOD (PORCINE) LOAD IVP PRN (11:01)
[2016-12-03] MEDS: HEPARIN SOD (PORCINE) UNIT/HR IVP PRN (11:00)
[2016-12-03] MEDS: HEPARIN SOD (PORCINE) LOAD IVP PRN (11:00)
[2016-12-05] MEDS: HEPARIN SOD (PORCINE) LOAD IVP PRN (10:57)
[2016-12-05] MEDS: HEPARIN SOD (PORCINE) UNIT/HR IVP PRN (10:57)
[2016-12-05] MEDS: SODIUM FERRIC GLUC 62.5 MG/5ML IVP PRN (11:10)
[2016-12-07] MEDS: HEPARIN SOD (PORCINE) UNIT/HR IVP PRN (11:10)
[2016-12-07] MEDS: HEPARIN SOD (PORCINE) LOAD IVP PRN (11:10)
[2016-12-10] MEDS: HEPARIN SOD (PORCINE) LOAD IVP PRN (11:12)
[2016-12-10] MEDS: HEPARIN SOD (PORCINE) UNIT/HR IVP PRN (11:12)
[2016-12-12] MEDS: HEPARIN SOD (PORCINE) UNIT/HR IVP PRN (11:08)
[2016-12-12] MEDS: HEPARIN SOD (PORCINE) LOAD IVP PRN (11:09)
[2016-12-12] MEDS: SODIUM FERRIC GLUC 62.5 MG/5ML IVP PRN (11:39)
[2016-12-12 11:52] LABS: PLATELET COUNT, AUTOMATED 118 K/uL (150-450)
[2016-12-14] MEDS: HEPARIN SOD (PORCINE) LOAD IVP PRN (10:58)
[2016-12-14] MEDS: HEPARIN SOD (PORCINE) UNIT/HR IVP PRN (10:59)
[2016-12-17] MEDS: HEPARIN SOD (PORCINE) UNIT/HR IVP PRN (11:05)
[2016-12-17] MEDS: HEPARIN SOD (PORCINE) LOAD IVP PRN (11:05)
[2016-12-19] MEDS: HEPARIN SOD (PORCINE) LOAD IVP PRN (10:57)
[2016-12-19] MEDS: HEPARIN SOD (PORCINE) UNIT/HR IVP PRN (10:58)
[2016-12-21] MEDS: HEPARIN SOD (PORCINE) LOAD IVP PRN (10:54)
[2016-12-21] MEDS: HEPARIN SOD (PORCINE) UNIT/HR IVP PRN (10:54)
[2016-12-24] MEDS: HEPARIN SOD (PORCINE) LOAD IVP PRN (10:57)
[2016-12-24] MEDS: HEPARIN SOD (PORCINE) UNIT/HR IVP PRN (10:57)
[2016-12-26] MEDS: HEPARIN SOD (PORCINE) LOAD IVP PRN (11:03)
[2016-12-26] MEDS: HEPARIN SOD (PORCINE) UNIT/HR IVP PRN (11:03)
[2016-12-26] MEDS: SODIUM FERRIC GLUC 62.5 MG/5ML IVP PRN (11:31)
[2016-12-28] MEDS: HEPARIN SOD (PORCINE) UNIT/HR IVP PRN (10:55)
[2016-12-28] MEDS: HEPARIN SOD (PORCINE) LOAD IVP PRN (10:55)
[2016-12-31] MEDS: HEPARIN SOD (PORCINE) UNIT/HR IVP PRN (11:00)
[2016-12-31] MEDS: HEPARIN SOD (PORCINE) LOAD IVP PRN (11:00)
[2017-01-02] MEDS: HEPARIN SOD (PORCINE) LOAD IVP PRN (11:13)
[2017-01-02] MEDS: HEPARIN SOD (PORCINE) UNIT/HR IVP PRN (11:13)
[2017-01-04] MEDS: LOPERAMIDE HCL 2 MG CAP PO PRN (11:05)
[2017-01-04] MEDS: HEPARIN SOD (PORCINE) UNIT/HR IVP PRN (11:06)
[2017-01-04] MEDS: HEPARIN SOD (PORCINE) LOAD IVP PRN (11:06)
[2017-01-14] MEDS: HEPARIN SOD (PORCINE) UNIT/HR IVP PRN (10:55)
[2017-01-14] MEDS: HEPARIN SOD (PORCINE) LOAD IVP PRN (10:55)
[2017-01-16] MEDS: HEPARIN SOD (PORCINE) LOAD IVP PRN (10:59)
[2017-01-16] MEDS: HEPARIN SOD (PORCINE) UNIT/HR IVP PRN (10:59)
[2017-01-16 11:24] LABS: PLATELET COUNT, AUTOMATED 127 K/uL (150-450)
[2017-01-18] MEDS: HEPARIN SOD (PORCINE) UNIT/HR IVP PRN (11:00)
[2017-01-18] MEDS: HEPARIN SOD (PORCINE) LOAD IVP PRN (11:01)
[2017-01-21] MEDS: HEPARIN SOD (PORCINE) LOAD IVP PRN (11:02)
[2017-01-21] MEDS: HEPARIN SOD (PORCINE) UNIT/HR IVP PRN (11:03)
[2017-01-23] MEDS: HEPARIN SOD (PORCINE) LOAD IVP PRN (10:58)
[2017-01-23] MEDS: HEPARIN SOD (PORCINE) UNIT/HR IVP PRN (10:59)
[2017-01-23] MEDS: SODIUM FERRIC GLUC 62.5 MG/5ML IVP PRN (11:24)
[2017-01-25] MEDS: HEPARIN SOD (PORCINE) UNIT/HR IVP PRN (10:56)
[2017-01-25] MEDS: HEPARIN SOD (PORCINE) LOAD IVP PRN (10:56)
[2017-01-28] MEDS: HEPARIN SOD (PORCINE) LOAD IVP PRN (11:12)
[2017-01-28] MEDS: HEPARIN SOD (PORCINE) UNIT/HR IVP PRN (11:13)
[2017-01-30] MEDS: HEPARIN SOD (PORCINE) UNIT/HR IVP PRN (11:00)
[2017-01-30] MEDS: HEPARIN SOD (PORCINE) LOAD IVP PRN (11:00)
[2017-02-01] MEDS: HEPARIN SOD (PORCINE) LOAD IVP PRN (11:02)
[2017-02-01] MEDS: HEPARIN SOD (PORCINE) UNIT/HR IVP PRN (11:02)
[2017-02-01] MEDS: DARBEPOETIN ESRD 25 MCG/ML IVP PRN (11:13)
[2017-02-04] MEDS: HEPARIN SOD (PORCINE) LOAD IVP PRN (11:05)
[2017-02-04] MEDS: HEPARIN SOD (PORCINE) UNIT/HR IVP PRN (11:05)
[2017-02-06] MEDS: HEPARIN SOD (PORCINE) LOAD IVP PRN (11:04)
[2017-02-06] MEDS: HEPARIN SOD (PORCINE) UNIT/HR IVP PRN (11:05)
[2017-02-06] MEDS: SODIUM FERRIC GLUC 62.5 MG/5ML IVP PRN (11:23)
[2017-02-08] MEDS: HEPARIN SOD (PORCINE) UNIT/HR IVP PRN (11:04)
[2017-02-08] MEDS: HEPARIN SOD (PORCINE) LOAD IVP PRN (11:05)
[2017-02-08] MEDS: DARBEPOETIN ESRD 25 MCG/ML IVP PRN (11:20)
[2017-02-11] MEDS: HEPARIN SOD (PORCINE) LOAD IVP PRN (10:57)
[2017-02-11] MEDS: HEPARIN SOD (PORCINE) UNIT/HR IVP PRN (10:57)
[2017-02-13] MEDS: HEPARIN SOD (PORCINE) LOAD IVP PRN (10:53)
[2017-02-13] MEDS: HEPARIN SOD (PORCINE) UNIT/HR IVP PRN (10:53)
[2017-02-13 11:44] LABS: PLATELET COUNT, AUTOMATED 99 K/uL (150-450)
[2017-02-18] MEDS: HEPARIN SOD (PORCINE) LOAD IVP PRN (11:01)
[2017-02-18] MEDS: HEPARIN SOD (PORCINE) UNIT/HR IVP PRN (11:01)
[2017-02-20] MEDS: HEPARIN SOD (PORCINE) UNIT/HR IVP PRN (10:57)
[2017-02-20] MEDS: HEPARIN SOD (PORCINE) LOAD IVP PRN (10:57)
[2017-02-20] MEDS: SODIUM FERRIC GLUC 62.5 MG/5ML IVP PRN (11:33)
[2017-02-22] MEDS: HEPARIN SOD (PORCINE) UNIT/HR IVP PRN (10:56)
[2017-02-22] MEDS: HEPARIN SOD (PORCINE) LOAD IVP PRN (10:56)
[2017-02-25] MEDS: HEPARIN SOD (PORCINE) LOAD IVP PRN (11:03)
[2017-02-25] MEDS: HEPARIN SOD (PORCINE) UNIT/HR IVP PRN (11:04)
[2017-02-27] MEDS: HEPARIN SOD (PORCINE) UNIT/HR IVP PRN (11:01)
[2017-02-27] MEDS: HEPARIN SOD (PORCINE) LOAD IVP PRN (11:01)
[2017-02-27] MEDS: LOPERAMIDE HCL 2 MG CAP PO PRN (11:10)
[2017-03-01] MEDS: HEPARIN SOD (PORCINE) UNIT/HR IVP PRN (11:18)
[2017-03-01] MEDS: HEPARIN SOD (PORCINE) LOAD IVP PRN (11:18)
[2017-03-04] MEDS: HEPARIN SOD (PORCINE) UNIT/HR IVP PRN (11:01)
[2017-03-04] MEDS: HEPARIN SOD (PORCINE) LOAD IVP PRN (11:01)
[2017-03-06] MEDS: HEPARIN SOD (PORCINE) LOAD IVP PRN (10:59)
[2017-03-06] MEDS: HEPARIN SOD (PORCINE) UNIT/HR IVP PRN (10:59)
[2017-03-06] MEDS: SODIUM FERRIC GLUC 62.5 MG/5ML IVP PRN (11:09)
[2017-03-08] MEDS: HEPARIN SOD (PORCINE) UNIT/HR IVP PRN (10:59)
[2017-03-08] MEDS: HEPARIN SOD (PORCINE) LOAD IVP PRN (11:00)
[2017-03-11] MEDS: HEPARIN SOD (PORCINE) LOAD IVP PRN (10:59)
[2017-03-11] MEDS: HEPARIN SOD (PORCINE) UNIT/HR IVP PRN (10:59)
[2017-03-11] MEDS: LIDOCAINE/PRILOCAINE 30GM TUBE TP PRN (11:44)
[2017-03-13] MEDS: HEPARIN SOD (PORCINE) LOAD IVP PRN (10:59)
[2017-03-13] MEDS: HEPARIN SOD (PORCINE) UNIT/HR IVP PRN (10:59)
[2017-03-13 11:34] LABS: PLATELET COUNT, AUTOMATED 117 K/uL (150-450)
[2017-03-15] MEDS: HEPARIN SOD (PORCINE) UNIT/HR IVP PRN (10:58)
[2017-03-15] MEDS: HEPARIN SOD (PORCINE) LOAD IVP PRN (10:58)
[2017-03-18] MEDS: HEPARIN SOD (PORCINE) LOAD IVP PRN (11:08)
[2017-03-18] MEDS: HEPARIN SOD (PORCINE) UNIT/HR IVP PRN (11:08)
[2017-03-20] MEDS: HEPARIN SOD (PORCINE) LOAD IVP PRN (10:51)
[2017-03-20] MEDS: HEPARIN SOD (PORCINE) UNIT/HR IVP PRN (10:51)
[2017-03-20] MEDS: SODIUM FERRIC GLUC 62.5 MG/5ML IVP PRN (11:21)
[2017-03-22] MEDS: HEPARIN SOD (PORCINE) UNIT/HR IVP PRN (11:26)
[2017-03-22] MEDS: HEPARIN SOD (PORCINE) LOAD IVP PRN (11:26)
[2017-03-25] MEDS: HEPARIN SOD (PORCINE) UNIT/HR IVP PRN (11:01)
[2017-03-25] MEDS: HEPARIN SOD (PORCINE) LOAD IVP PRN (11:01)
[2017-03-27] MEDS: HEPARIN (PORCINE) 1000 UNIT/ML (DIALYSIS) IVP PRN (11:03)
[2017-03-27] MEDS: HEPARIN SOD (PORCINE) LOAD IVP PRN (11:03)
[2017-03-29] MEDS: HEPARIN SOD (PORCINE) LOAD IVP PRN (11:05)
[2017-03-29] MEDS: HEPARIN (PORCINE) 1000 UNIT/ML (DIALYSIS) IVP PRN (11:05)
[2017-04-01] MEDS: HEPARIN (PORCINE) 1000 UNIT/ML (DIALYSIS) IVP PRN (10:55)
[2017-04-01] MEDS: HEPARIN SOD (PORCINE) LOAD IVP PRN (10:55)
[2017-04-03] MEDS: HEPARIN (PORCINE) 1000 UNIT/ML (DIALYSIS) IVP PRN (10:54)
[2017-04-03] MEDS: HEPARIN SOD (PORCINE) LOAD IVP PRN (10:55)
[2017-04-03] MEDS: SODIUM FERRIC GLUC 62.5 MG/5ML IVP PRN (11:23)
[2017-04-05] MEDS: HEPARIN (PORCINE) 1000 UNIT/ML (DIALYSIS) IVP PRN (10:57)
[2017-04-05] MEDS: HEPARIN SOD (PORCINE) LOAD IVP PRN (10:58)
[2017-04-08] MEDS: HEPARIN (PORCINE) 1000 UNIT/ML (DIALYSIS) IVP PRN (10:56)
[2017-04-08] MEDS: HEPARIN SOD (PORCINE) LOAD IVP PRN (10:57)
[2017-04-10] MEDS: HEPARIN SOD (PORCINE) LOAD IVP PRN (11:00)
[2017-04-10] MEDS: HEPARIN (PORCINE) 1000 UNIT/ML (DIALYSIS) IVP PRN (11:00)
[2017-04-10 11:54] LABS: PLATELET COUNT, AUTOMATED 111 K/uL (150-450)
[2017-04-12] MEDS: HEPARIN (PORCINE) 1000 UNIT/ML (DIALYSIS) IVP PRN (10:58)
[2017-04-12] MEDS: HEPARIN SOD (PORCINE) LOAD IVP PRN (10:58)
[2017-04-15] MEDS: HEPARIN SOD (PORCINE) LOAD IVP PRN (10:51)
[2017-04-15] MEDS: HEPARIN (PORCINE) 1000 UNIT/ML (DIALYSIS) IVP PRN (10:51)
[2017-04-17] MEDS: HEPARIN (PORCINE) 1000 UNIT/ML (DIALYSIS) IVP PRN (11:03)
[2017-04-17] MEDS: HEPARIN SOD (PORCINE) LOAD IVP PRN (11:03)
[2017-04-17] MEDS: SODIUM FERRIC GLUC 62.5 MG/5ML IVP PRN (11:55)
[2017-04-19] MEDS: HEPARIN (PORCINE) 1000 UNIT/ML (DIALYSIS) IVP PRN (06:09)
[2017-04-19] MEDS: HEPARIN SOD (PORCINE) LOAD IVP PRN (06:09)
[2017-04-22] MEDS: HEPARIN SOD (PORCINE) LOAD IVP PRN (10:59)
[2017-04-22] MEDS: HEPARIN (PORCINE) 1000 UNIT/ML (DIALYSIS) IVP PRN (11:00)
[2017-04-24] MEDS: HEPARIN (PORCINE) 1000 UNIT/ML (DIALYSIS) IVP PRN (10:54)
[2017-04-24] MEDS: HEPARIN SOD (PORCINE) LOAD IVP PRN (10:54)
[2017-04-24] MEDS: LIDOCAINE/PRILOCAINE 30GM TUBE TP PRN (10:58)
[2017-04-26] MEDS: HEPARIN (PORCINE) 1000 UNIT/ML (DIALYSIS) IVP PRN (11:04)
[2017-04-26] MEDS: HEPARIN SOD (PORCINE) LOAD IVP PRN (11:04)
[2017-04-29] MEDS: HEPARIN SOD (PORCINE) LOAD IVP PRN (10:52)
[2017-04-29] MEDS: HEPARIN (PORCINE) 1000 UNIT/ML (DIALYSIS) IVP PRN (10:52)
[2017-05-01] MEDS: HEPARIN SOD (PORCINE) LOAD IVP PRN (11:06)
[2017-05-01] MEDS: HEPARIN (PORCINE) 1000 UNIT/ML (DIALYSIS) IVP PRN (11:08)
[2017-05-01] MEDS: SODIUM FERRIC GLUC 62.5 MG/5ML IVP PRN (11:24)
[2017-05-03] MEDS: HEPARIN (PORCINE) 1000 UNIT/ML (DIALYSIS) IVP PRN (11:02)
[2017-05-03] MEDS: HEPARIN SOD (PORCINE) LOAD IVP PRN (11:02)
[2017-05-06] MEDS: HEPARIN SOD (PORCINE) LOAD IVP PRN (10:57)
[2017-05-06] MEDS: HEPARIN (PORCINE) 1000 UNIT/ML (DIALYSIS) IVP PRN (10:58)
[2017-05-08] MEDS: HEPARIN (PORCINE) 1000 UNIT/ML (DIALYSIS) IVP PRN (11:05)
[2017-05-08] MEDS: HEPARIN SOD (PORCINE) LOAD IVP PRN (11:05)
[2017-05-08] MEDS: LOPERAMIDE HCL 2 MG CAP PO PRN (11:06)
[2017-05-08 11:46] LABS: PLATELET COUNT, AUTOMATED 112 K/uL (150-450)
[2017-05-10] MEDS: HEPARIN SOD (PORCINE) LOAD IVP PRN (10:58)
[2017-05-10] MEDS: HEPARIN (PORCINE) 1000 UNIT/ML (DIALYSIS) IVP PRN (10:58)
[2017-05-13] MEDS: HEPARIN (PORCINE) 1000 UNIT/ML (DIALYSIS) IVP PRN (11:07)
[2017-05-13] MEDS: HEPARIN SOD (PORCINE) LOAD IVP PRN (11:08)
[2017-05-13] MEDS: LOPERAMIDE HCL 2 MG CAP PO PRN (11:13)
[2017-05-15] MEDS: HEPARIN SOD (PORCINE) LOAD IVP PRN (11:02)
[2017-05-15] MEDS: HEPARIN (PORCINE) 1000 UNIT/ML (DIALYSIS) IVP PRN (11:02)
[2017-05-15] MEDS: SODIUM FERRIC GLUC 62.5 MG/5ML IVP PRN (11:46)
[2017-05-17] MEDS: HEPARIN SOD (PORCINE) LOAD IVP PRN (11:11)
[2017-05-17] MEDS: HEPARIN (PORCINE) 1000 UNIT/ML (DIALYSIS) IVP PRN (11:11)
[2017-05-20] MEDS: HEPARIN (PORCINE) 1000 UNIT/ML (DIALYSIS) IVP PRN (11:03)
[2017-05-20] MEDS: HEPARIN SOD (PORCINE) LOAD IVP PRN (11:03)
[2017-05-24] MEDS: HEPARIN SOD (PORCINE) LOAD IVP PRN (11:05)
[2017-05-24] MEDS: HEPARIN (PORCINE) 1000 UNIT/ML (DIALYSIS) IVP PRN (11:06)
[2017-05-27] MEDS: HEPARIN SOD (PORCINE) LOAD IVP PRN (11:01)
[2017-05-27] MEDS: HEPARIN (PORCINE) 1000 UNIT/ML (DIALYSIS) IVP PRN (11:01)
[2017-05-29] MEDS: HEPARIN SOD (PORCINE) LOAD IVP PRN (10:27)
[2017-05-29] MEDS: HEPARIN (PORCINE) 1000 UNIT/ML (DIALYSIS) IVP PRN (10:27)
[2017-05-29] MEDS: SODIUM FERRIC GLUC 62.5 MG/5ML IVP PRN (12:10)
[2017-05-31] MEDS: HEPARIN (PORCINE) 1000 UNIT/ML (DIALYSIS) IVP PRN (10:07)
[2017-05-31] MEDS: HEPARIN SOD (PORCINE) LOAD IVP PRN (10:08)
[2017-06-03] MEDS: HEPARIN SOD (PORCINE) LOAD IVP PRN (10:27)
[2017-06-03] MEDS: HEPARIN (PORCINE) 1000 UNIT/ML (DIALYSIS) IVP PRN (10:27)
[2017-06-03] MEDS: DIALYSIS ACETAMINOPHEN 325 MG PO PRN (12:06)
[2017-06-03] MEDS: LIDOCAINE/PRILOCAINE 30GM TUBE TP PRN (13:59)
[2017-06-05] MEDS: HEPARIN SOD (PORCINE) LOAD IVP PRN (10:08)
[2017-06-05] MEDS: HEPARIN (PORCINE) 1000 UNIT/ML (DIALYSIS) IVP PRN (10:09)
[2017-06-05] MEDS: LOPERAMIDE HCL 2 MG CAP PO PRN (10:24)
[2017-06-07] MEDS: HEPARIN (PORCINE) 1000 UNIT/ML (DIALYSIS) IVP PRN (10:20)
[2017-06-07] MEDS: HEPARIN SOD (PORCINE) LOAD IVP PRN (10:21)
[2017-06-10] MEDS: HEPARIN SOD (PORCINE) LOAD IVP PRN (10:22)
[2017-06-10] MEDS: HEPARIN (PORCINE) 1000 UNIT/ML (DIALYSIS) IVP PRN (10:22)
[2017-06-10] MEDS: LOPERAMIDE HCL 2 MG CAP PO PRN (10:55)
[2017-06-12] MEDS: HEPARIN SOD (PORCINE) LOAD IVP PRN (10:16)
[2017-06-12] MEDS: HEPARIN (PORCINE) 1000 UNIT/ML (DIALYSIS) IVP PRN (10:16)
[2017-06-12] MEDS: SODIUM FERRIC GLUC 62.5 MG/5ML IVP PRN (10:45)
[2017-06-12 10:50] LABS: PLATELET COUNT, AUTOMATED 115 K/uL (150-450)
[2017-06-14] MEDS: HEPARIN (PORCINE) 1000 UNIT/ML (DIALYSIS) IVP PRN (10:11)
[2017-06-14] MEDS: HEPARIN SOD (PORCINE) LOAD IVP PRN (10:12)
[2017-06-17] MEDS: HEPARIN (PORCINE) 1000 UNIT/ML (DIALYSIS) IVP PRN (10:21)
[2017-06-17] MEDS: HEPARIN SOD (PORCINE) LOAD IVP PRN (10:22)
[2017-06-19] MEDS: HEPARIN SOD (PORCINE) LOAD IVP PRN (10:20)
[2017-06-21] MEDS: HEPARIN (PORCINE) 1000 UNIT/ML (DIALYSIS) IVP PRN (09:47)
[2017-06-21] MEDS: HEPARIN SOD (PORCINE) LOAD IVP PRN (09:48)
[2017-06-24] MEDS: HEPARIN SOD (PORCINE) LOAD IVP PRN (10:17)
[2017-06-24] MEDS: HEPARIN (PORCINE) 1000 UNIT/ML (DIALYSIS) IVP PRN (10:17)
[2017-06-26] MEDS: HEPARIN (PORCINE) 1000 UNIT/ML (DIALYSIS) IVP PRN (10:18)
[2017-06-26] MEDS: HEPARIN SOD (PORCINE) LOAD IVP PRN (10:19)
[2017-06-26] MEDS: DIALYSIS ACETAMINOPHEN 325 MG PO PRN (10:26)
[2017-06-26] MEDS: SODIUM FERRIC GLUC 62.5 MG/5ML IVP PRN (10:44)
[2017-06-28] MEDS: HEPARIN SOD (PORCINE) LOAD IVP PRN (10:09)
[2017-06-28] MEDS: HEPARIN (PORCINE) 1000 UNIT/ML (DIALYSIS) IVP PRN (10:09)
[2017-07-01] MEDS: HEPARIN (PORCINE) 1000 UNIT/ML (DIALYSIS) IVP PRN (10:21)
[2017-07-01] MEDS: HEPARIN SOD (PORCINE) LOAD IVP PRN (10:21)
[2017-07-03] MEDS: HEPARIN (PORCINE) 1000 UNIT/ML (DIALYSIS) IVP PRN (10:13)
[2017-07-03] MEDS: HEPARIN SOD (PORCINE) LOAD IVP PRN (10:13)
[2017-07-05] MEDS: HEPARIN SOD (PORCINE) LOAD IVP PRN (10:19)
[2017-07-05] MEDS: HEPARIN (PORCINE) 1000 UNIT/ML (DIALYSIS) IVP PRN (10:19)
[2017-07-05] MEDS: LIDOCAINE/PRILOCAINE 30GM TUBE TP PRN (14:14)
[2017-07-08] MEDS: HEPARIN (PORCINE) 1000 UNIT/ML (DIALYSIS) IVP PRN (10:20)
[2017-07-08] MEDS: HEPARIN SOD (PORCINE) LOAD IVP PRN (10:20)
[2017-07-10] MEDS: HEPARIN (PORCINE) 1000 UNIT/ML (DIALYSIS) IVP PRN (10:17)
[2017-07-10] MEDS: HEPARIN SOD (PORCINE) LOAD IVP PRN (10:17)
[2017-07-10] MEDS: SODIUM FERRIC GLUC 62.5 MG/5ML IVP PRN (11:47)
[2017-07-12] MEDS: HEPARIN SOD (PORCINE) LOAD IVP PRN (10:18)
[2017-07-12] MEDS: HEPARIN (PORCINE) 1000 UNIT/ML (DIALYSIS) IVP PRN (10:18)
[2017-07-15] MEDS: HEPARIN (PORCINE) 1000 UNIT/ML (DIALYSIS) IVP PRN (10:41)
[2017-07-15] MEDS: HEPARIN SOD (PORCINE) LOAD IVP PRN (10:41)
[2017-07-17] MEDS: HEPARIN SOD (PORCINE) LOAD IVP PRN (10:17)
[2017-07-17] MEDS: HEPARIN (PORCINE) 1000 UNIT/ML (DIALYSIS) IVP PRN (10:17)
[2017-07-17 10:52] LABS: PLATELET COUNT, AUTOMATED 137 K/uL (150-450)
[2017-07-20] MEDS: HEPARIN SOD (PORCINE) LOAD IVP PRN (10:19)
[2017-07-20] MEDS: HEPARIN (PORCINE) 1000 UNIT/ML (DIALYSIS) IVP PRN (10:19)
[2017-07-22] MEDS: HEPARIN SOD (PORCINE) LOAD IVP PRN (10:17)
[2017-07-22] MEDS: HEPARIN (PORCINE) 1000 UNIT/ML (DIALYSIS) IVP PRN (10:18)
[2017-07-24] MEDS: HEPARIN (PORCINE) 1000 UNIT/ML (DIALYSIS) IVP PRN (10:24)
[2017-07-24] MEDS: HEPARIN SOD (PORCINE) LOAD IVP PRN (10:25)
[2017-07-24] MEDS: SODIUM FERRIC GLUC 62.5 MG/5ML IVP PRN (11:56)
[2017-07-26] MEDS: HEPARIN (PORCINE) 1000 UNIT/ML (DIALYSIS) IVP PRN (10:33)
[2017-07-26] MEDS: HEPARIN SOD (PORCINE) LOAD IVP PRN (10:33)
[2017-07-29] MEDS: HEPARIN SOD (PORCINE) LOAD IVP PRN (10:20)
[2017-07-29] MEDS: HEPARIN (PORCINE) 1000 UNIT/ML (DIALYSIS) IVP PRN (10:20)
[2017-07-29] MEDS: LIDOCAINE/PRILOCAINE 30GM TUBE TP PRN (13:15)
[2017-07-31] MEDS: HEPARIN SOD (PORCINE) LOAD IVP PRN (10:18)
[2017-07-31] MEDS: HEPARIN (PORCINE) 1000 UNIT/ML (DIALYSIS) IVP PRN (10:18)
[2017-07-31 11:20] LABS: PLATELET COUNT, AUTOMATED 119 K/uL (150-450)
[2017-08-02] MEDS: HEPARIN (PORCINE) 1000 UNIT/ML (DIALYSIS) IVP PRN ×2 (10:20→12:56)
[2017-08-02] MEDS: HEPARIN SOD (PORCINE) LOAD IVP PRN ×2 (10:20→12:55)
[2017-08-05] MEDS: HEPARIN SOD (PORCINE) LOAD IVP PRN (10:18)
[2017-08-05] MEDS: HEPARIN (PORCINE) 1000 UNIT/ML (DIALYSIS) IVP PRN (10:18)
[2017-08-07] MEDS: HEPARIN (PORCINE) 1000 UNIT/ML (DIALYSIS) IVP PRN (10:15)
[2017-08-07] MEDS: HEPARIN SOD (PORCINE) LOAD IVP PRN (10:16)
[2017-08-07] MEDS: SODIUM FERRIC GLUC 62.5 MG/5ML IVP PRN (10:35)
[2017-08-09] MEDS: HEPARIN (PORCINE) 1000 UNIT/ML (DIALYSIS) IVP PRN (10:29)
[2017-08-09] MEDS: HEPARIN SOD (PORCINE) LOAD IVP PRN (10:29)
[2017-08-12] MEDS: HEPARIN SOD (PORCINE) LOAD IVP PRN (10:22)
[2017-08-12] MEDS: HEPARIN (PORCINE) 1000 UNIT/ML (DIALYSIS) IVP PRN (10:23)
[2017-08-14] MEDS: HEPARIN SOD (PORCINE) LOAD IVP PRN (10:22)
[2017-08-14] MEDS: HEPARIN (PORCINE) 1000 UNIT/ML (DIALYSIS) IVP PRN (10:23)
[2017-08-16] MEDS: HEPARIN SOD (PORCINE) LOAD IVP PRN (10:20)
[2017-08-16] MEDS: HEPARIN (PORCINE) 1000 UNIT/ML (DIALYSIS) IVP PRN (10:20)
[2017-08-18] MEDS: HEPARIN SOD (PORCINE) LOAD IVP PRN (13:52)
[2017-08-18] MEDS: HEPARIN (PORCINE) 1000 UNIT/ML (DIALYSIS) IVP PRN (13:52)
[2017-08-21] MEDS: HEPARIN SOD (PORCINE) LOAD IVP PRN (10:20)
[2017-08-21] MEDS: HEPARIN (PORCINE) 1000 UNIT/ML (DIALYSIS) IVP PRN (10:20)
[2017-08-21] MEDS: LOPERAMIDE HCL 2 MG CAP PO PRN (10:29)
[2017-08-21] MEDS: SODIUM FERRIC GLUC 62.5 MG/5ML IVP PRN (10:45)
[2017-08-21] MEDS: LIDOCAINE/PRILOCAINE 30GM TUBE TP PRN (14:12)
[2017-08-23] MEDS: HEPARIN SOD (PORCINE) LOAD IVP PRN (10:27)
[2017-08-23] MEDS: HEPARIN (PORCINE) 1000 UNIT/ML (DIALYSIS) IVP PRN (10:27)
[~2017-08-26] VITALS: Ht 151.1 cm; Wt 74.6 kg
[~2017-08-26 09:21] MED LIST changes: +ALTEPLASE RECOMB 2 MG VIAL IVP PRN; +DARBEPOETIN ESRD 25 MCG/ML IVP PRN; -DIALYSIS ACETAMINOPHEN 325 MG PO PRN; +HEPATITIS B(DIAL) VAC 20MCG/ML 1 ML VIAL IM ONLY ONE; +INFLUENZA VIRUS VAC 0.5 ML SYR IM ONLY ONE; -LIDOCAINE/PRILOCAINE 30GM TUBE TP PRN; -LOPERAMIDE HCL 2 MG CAP PO PRN; +WATER STERILE 10 ML VIAL IVP PRN; +[UNRECOGNIZED DRUG - OTHER] IVP PRN
== END | disposition home or self-care (01) ==
LOC: DIAL 08-24 08:47
PROVIDERS: ATTEND Internal Medicine Nephrology
DX: I12.0 Hypertensive chronic kidney disease with stage 5 chronic kidney disease or end stage renal disease (principal); N18.6 End stage renal disease; Z99.2 Dependence on renal dialysis; E11.22 Type 2 diabetes mellitus with diabetic chronic kidney disease; D63.1 Anemia in chronic kidney disease; E46 Unspecified protein-calorie malnutrition; Z79.899 Other long term (current) drug therapy; I31.3 Pericardial effusion (noninflammatory); E55.9 Vitamin D deficiency, unspecified; I95.1 Orthostatic hypotension; Z79.4 Long term (current) use of insulin; Z23 Encounter for immunization
CPT/HCPCS: 36416; 82040; 82108; 82247; 82310; 82374; 82465; 82565; 82728; 82947; 82948; 83036; 83540; 83550; 83970; 84075; 84100; 84132; 84295; 84460; 84478; 84520; 85018; 85025; 86580; 86706; 87340; 90747; 90999; A4657; A9270; G0010; G0472; J0882; J2916; 86803

== ENCOUNTER 2017-09-24 11:06 | Outpatient (RCR) | payer MEDICARE ==
[~2017-09-24 11:06] MED LIST changes: -ALTEPLASE RECOMB 2 MG VIAL IVP PRN; -DARBEPOETIN ESRD 25 MCG/ML IVP PRN; -DEXTROSE 50% 50 ML SYR IVP PRN; -HEPATITIS B(DIAL) VAC 20MCG/ML 1 ML VIAL IM ONLY ONE; -INFLUENZA VIRUS VAC 0.5 ML SYR IM ONLY ONE; -LIDOCAINE/SOD BICARB 8.4% SYR ID PRN; -PROMETHAZINE HCL 25 MG TAB PO PRN; -WATER STERILE 10 ML VIAL IVP PRN; -[UNRECOGNIZED DRUG - OTHER] IVP PRN; -diphenhydr DIALYSIS 50 MG/ML IVP PRN
--- NOTE | 2017-09-24 12:49 | PT INITIAL EVALUATION ---
MEDICAL DIAGNOSIS: R) great toe wound TREATMENT DIAGNOSIS: R) plantar great toe, neuropathic ulcer DATE OF ONSET: 09/10/17 SUBJECTIVE: . Patient presents today with bandage in place from appt. with PCP yesterday. She reports that she was wearing her "UGG" boots and developed the wound on her R) great toe a few weeks ago. She reports that she has been soaking it in hydrogen peroxide as well as "trimming it up". She was referred for PT wound care with an order for an oral antibiotic as well. REHAB PROBLEM LIST: Increased Pain, op en wound PREVIOUS MEDICAL HISTORY: Kidney failure, pt on dialysis (3x/week), DMII, h/o multiple wounds, see EMR OBJECTIVE: Wound Measurements: 0.3 cm L x 0.6 cm W x 0.4 cm D ASSESSMENT: Pt presents with wound on plantar tip of R) great toe, with erythema of the entire toe present, extending onto the dorsal surface of the foot. Pt also reports exquisite tenderness to palpation of the anterior watts. Periwound skin demonstrates moderate callous formation, with boggy end feel at the base of the wound. PT completed conservative, selective debridement of non- viable tissue and slough with tweezers and scissors to the depth of the subcutaneous tissue in order to reveal entire wound base and bevel wound edges. Base of wound gently packed with calcium alginate with silver and then covered with a bordered gauze dressing. Pt educated on importance of initiating use of antibiotics as soon as possible today. She will benefit from skilled PT wound care to include advanced wound care product selection and application as well as sharps debridement in order to facilitate wound healing. Short Term Goals 1: Pt to maintain clean, dry and intact dressing between wound care visits. 2: Wound to demonstrate 100% granulation tissue. 3: Wound to gradually epithelialize from the edges inward demonstrate 100% closure 4: Pt to obtain information regarding appropriate footwear to prevent further ulcerations. Patient's Goals: Wound healing PLAN: Patient to be seen for skilled PT wound care to include advanced wound care product selection and application as well as sharps debridement in order to facilitate wound healing 1x/Week for up to 90 days. Thank you for this referral. If you have any questions, comments, or concerns about this report or plan, please contact me at . Jennie Alejandre, PT, DPT MTDD
--- NOTE | 2017-10-07 14:21 | PT PLAN OF CARE ---
Physician: Dr. Brush Patient is being seen:Serina Ferguson Therapist: Jennie Alejandre, PT, DPT Medical Diagnosis: R) great toe wound Treatment Diagnosis: R) great toe neuropathic ulcer Date of Onset: 09/10/17 Date of Initial Evaluation: 09/24/17 Date patient was last seen: 09/24/17 Number of treatments: 1 Number of cancellations/No shows: 2 INTERVENTIONS: Pt was seen for initial wound care evaluation at which time sharps debridement and dressing placement was completed. Pt was then a no/show for 2 appts. 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 No further wound care indicated at this time. GOALS: 1: Pt to maintain clean, dry and intact dressing between wound care visits. 2: Wound to demonstrate 100% granulation tissue. 3: Wound to gradually epithelialize from the edges inward demonstrate 100% closure 4: Pt to obtain information regarding appropriate footwear to prevent further ulcerations. PATIENT'S GOAL: Wound healing Status of Patient's Goals: Not met Patient Compliance: pt only seen for initial evaluation Reasons for continuing therapy:Pt reports R) great toe was amputated, no further PT visits indicated at this time [facility]
== END 2017-09-24 18:00 | disposition home or self-care (01) ==
LOC: PT 11:06
PROVIDERS: ATTEND Family Medicine
DX: L97.511 Non-pressure chronic ulcer of other part of right foot limited to breakdown of skin (principal); E11.9 Type 2 diabetes mellitus without complications; N18.9 Chronic kidney disease, unspecified; Z99.2 Dependence on renal dialysis
CPT/HCPCS: 97161

== ENCOUNTER 2017-09-25 11:06 | Emergency (ER) | payer MEDICARE ==
[~2017-09-25] VITALS: Ht 152.4 cm; Wt 77.1 kg
--- NOTE | 2017-09-25 11:25 | ER Report ---
History and Physical Time Seen By MD: 11:18 Hx. of Stated Complaint: PATIENT WAS FOUND ALTERED BY HER BOYFRIEND. EMS REPORTS THAT SHE BECAME MORE RESPONSIVE IN ROUTE. PATIENT IS A&O X3, SHE CANNOT REMEMBER THE YEAR HPI/ROS CHIEF COMPLAINT: AMS; supposed to get dialysis today. HISTORY OF PRESENT ILLNESS: Patient is a 62-year-old female with past medical history for end-stage renal disease she is oliguric who presents to the emergency department via EMS for altered mental status. According to prehospital personnel the patient is supposed to receive dialysis today as per routine. I dialysis called the patient and she received no answer so they called her boyfriend to check on her she was found confused to the date and somewhat slower than usual. Patient herself denies any loss of consciousness she does state that her legs felt weak and so she fell to the ground. She does recall the fall. She denies any headache or chest pain. She denies any shortness of breath. Patient has had a similar episode in the past and was seen after completing dialysis in January of this past year when her legs became weak. She ultimately was worked up. The emergency department and transferred to [facility] for further testing for TIA versus stroke which reportedly by the patient was negative. Patient was seen by the dialysis nurse "Mary" in emergency department and she tells me that the patient seems like she is at her current baseline mental status at this point. The patient herself offers no complaints. She does further admit that she is being treated for a infection to her right great toe and is being followed by wound care. REVIEW OF SYSTEMS: Constitutional: No fever, no chills. Eyes: No discharge. ENT: No sore throat. Cardiovascular: No chest pain, no palpitations. Respiratory: No cough, no shortness of breath. Gastrointestinal: No abdominal pain, no vomiting. Genitourinary: No hematuria. Musculoskeletal: No back pain. Skin: No rashes. Neurological: No headache. Allergies: Coded Allergies: sulfamethoxazole (Verified Allergy, Intermediate, rash, 03/30/16) trimethoprim (Verified Allergy, Intermediate, rash, 03/30/16) Gadolinium-Containing Contrast Medi (Verified Allergy, Unknown, 05/04/16) Dialysis Patient piperacillin (Verified Allergy, Unknown, ITCHING, 03/30/16) 09/16/13: Pt tolerates Piperacillin/Tazobactam--been on Zosyn for osteomyelitis since 08/25/13. cah/PharmD tazobactam (Verified Allergy, Unknown, ITCHING, 03/30/16) 09/16/13: Pt tolerates Piperacillin/Tazobactam--been on Zosyn for osteomyelitis since 08/25/13. cah/PharmD ketorolac tromethamine (Verified Adverse Reaction, Intermediate, DECREASED RENAL FUNCTION, 03/30/16) Home Meds Reported Medications Gabapentin (GABAPENTIN) 300 Mg Capsule, 100 MG PO QPM, CAPSULE 07/22/17 Midodrine Hcl (MIDODRINE HCL) 5 Mg Tablet, 5 MG PO at the start of tx 07/03/17 Glucosa Juarez 2KCL/Chondroitin Juarez (GLUCOSAMINE CHONDROITIN CAPLET) 1 Each Tablet, 1 EACH PO DAILY 12/03/16 Calcium Carbonate (TUMS) 300 Mg Tab.chew, 1000 MG PO TIDCF Y for phospherous binder, TAB.CHEW 06/13/16 Vit A,C & E/Lutein/Minerals (OCUVITE TABLET) 1 Each Tablet, 1 EACH PO DAILY 05/16/16 Lactobacillus Rhamnosus Gg (CULTURELLE) 1 Each Capsule, 1 EACH PO DAILY, CAPSULE 05/16/16 Cholecalciferol (Vitamin D3) (VITAMIN D3) 1,000 Unit Tablet, 5000 UNIT PO DAILY , TAB 05/16/16 Furosemide (LASIX) 20 Mg Tablet, 80 MG PO non dialysis days, TAB take 80mg on non dialysis days-TUE, THUR, SAT, and SUN 03/30/16 Diphenhydramine Hcl (BENADRYL) 25 Mg Capsule, 25 MG PO Q6H Y, CAPSULE 09/15/13 Acetaminophen (Tylenol) 325 Mg Tab, 650 MG PO Q4-6H Y for PAIN 04/11/12 Past Medical/Surgical History "psychiatric problem"-no suicidal attempt, seizure at 11 years old, congestive heart failure, 1993 and 2012 pneumonia, GERD, gall bladder disease, hiatal hernia, kidney failure-on dialysis, arthritis, "vision problems"-wears contacts and reading glasses, DM II, psoriasis, "reoccurring shingles", depression/ anxiety Dilation and 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, 1998 hysterectomy, 1998 uterine cancer, 1998 laparoscopic appendectomy, 12/2011 cholecystectomy Hx Smoking: No Smoking Status: Never Smoker Exposure to Second Hand Smoke?: No Hx Substance Use Disorder: No Hx Alcohol Use: No Constitutional Vital Sign - Last 24 Hours 09/25/17 09/25/17 09/25/17 09/25/17 11:07 11:07 11:17 11:21 Temp 99.4 Pulse 119 113 Resp 20 B/P (MAP) 117/62 (80) 117/62 91/61 (71) Pulse Ox 100 98 O2 Delivery Room Air 09/25/17 09/25/17 09/25/17 09/25/17 11:30 12:00 12:15 12:20 Pulse 113 B/P (MAP) 112/65 (81) 120/107 (111) 96/82 (87) Pulse Ox 100 09/25/17 09/25/17 09/25/17 09/25/17 12:30 12:40 12:43 12:45 Pulse 112 115 B/P (MAP) 104/71 (82) 85/69 (74) Pulse Ox 98 97 Physical Exam General Appearance: The patient is alert, has no immediate need for airway protection and no signs of toxicity. Eyes: Pupils equal and round no pallor or injection. ENT, Mouth: Mucous membranes are moist. Respiratory: There are no retractions, lungs are clear to auscultation. Cardiovascular: Regular rate and rhythm. Gastrointestinal: Abdomen is soft and non tender, no masses, bowel sounds normal. Neurological: Patient is awake alert GCS is [address] and time. Renal nerves II through XII are intact and symmetrical. Skin: Warm and dry, no rashes. Musculoskeletal: Neck is supple non tender. Extremities are nontender, nonswollen and have full range of motion. Medical Decision Making Data Points Result Diagram: 09/25/17 1115 09/25/17 1115 Laboratory Hematology Test 09/25/17 11:15 09/25/17 11:17 09/25/17 12:03 Red Blood Count 3.29 M/uL (4.17-5.56) Mean Corpuscular Volume 103.4 fL (80.0-96.0) Mean Corpuscular Hemoglobin 35.6 pg (26.0-33.0) Mean Corpuscular Hemoglobin Concent 34.4 g/dL (32.0-36.0) Red Cell Distribution Width 14.4 % (11.5-14.5) Mean Platelet Volume 8.5 fL (7.2-11.1) Neutrophils (%) (Auto) 92.9 % (39.4-72.5) Lymphocytes (%) (Auto) 2.0 % (17.6-49.6) Monocytes (%) (Auto) 2.8 % (4.1-12.4) Eosinophils (%) (Auto) 1.7 % (0.4-6.7) Basophils (%) (Auto) 0.6 % (0.3-1.4) Nucleated RBC Relative Count (auto) 0.1 /100WBC Neutrophils # (Auto) 9.4 K/uL (2.0-7.4) Lymphocytes # (Auto) 0.2 K/uL (1.3-3.6) Monocytes # (Auto) 0.3 K/uL (0.3-1.0) Eosinophils # (Auto) 0.2 K/uL (0.0-0.5) Basophils # (Auto) 0.1 K/uL (0.0-0.1) Nucleated RBC Absolute Count (auto) 0.01 K/uL Carboxyhemoglobin 0.0 % (< 5.0) Sodium Level 138 mmol/L (137-145) Potassium Level 4.4 mmol/L (3.5-5.0) Chloride Level 94 mmol/L (98-107) Carbon Dioxide Level 28 mmol/L (22-31) Blood Urea Nitrogen 54 mg/dl (7-18) Creatinine 7.30 mg/dl (0.52-1.04) Glomerular Filtration Rate Calc 5.7 Random Glucose 109 mg/dl (75-110) Calcium Level 8.8 mg/dl (8.4-10.2) Total Bilirubin 0.6 mg/dl (0.2-1.3) Aspartate Amino Transf (AST/SGOT) 20 U/L (0-35) Alanine Aminotransferase (ALT/SGPT) 27 U/L (0-56) Alkaline Phosphatase 135 U/L (0-126) Ammonia < 9 UMOL/L (9-33) Total Protein 6.0 gm/dl (6.3-8.2) Albumin 3.1 g/dl (3.5-5.0) Thyroid Stimulating Hormone (TSH) 0.77 uIU/ml (0.46-4.68) Serum Alcohol < 10 mg/dl Whole Blood Glucose 139 mg/DL (75-110) Urine Color Yellow Urine Clarity Turbid Urine pH 5.0 pH (4.8-9.5) Urine Specific Howard 1.017 Urine Protein 100 mg/dL (NEGATIVE) Urine Glucose (UA) Negative mg/dL (NEGATIVE) Urine Ketones Negative mg/dL (NEGATIVE) Urine Blood Moderate (NEGATIVE) Urine Nitrite Negative (NEGATIVE) Urine Bilirubin Negative (NEGATIVE) Urine Urobilinogen Negative mg/dL (0.2-1.9) Urine Leukocyte Esterase Moderate (NEGATIVE) Urine RBC 114 /HPF (0-2/HPF) Urine WBC 59027 /HPF (0-5/HPF) Urine WBC Clumps Many /HPF Urine Squamous Epithelial Cells Many /LPF (NONE-FEW) Urine Amorphous Crystals Few /HPF Urine Bacteria Negative /HPF (NONE-FEW) Urine Hyaline Casts Many /LPF (NONE-FEW) Urine Mucus None /HPF (NONE-FEW) Urine Opiates Screen Negative Urine Barbiturates Screen Negative Ur Tricyclic Antidepressants Screen Negative Urine Phencyclidine Screen Negative Urine Amphetamines Screen Negative Urine Benzodiazepines Screen Negative Urine Cocaine Screen Negative Urine Cannabinoids Screen Negative Chemistry Test 09/25/17 11:15 09/25/17 11:17 09/25/17 12:03 White Blood Count 10.1 k/uL (4.5-11.0) Red Blood Count 3.29 M/uL (4.17-5.56) Hemoglobin 11.7 g/dL (12.0-16.0) Hematocrit 34.0 % (34.0-47.0) Mean Corpuscular Volume 103.4 fL (80.0-96.0) Mean Corpuscular Hemoglobin 35.6 pg (26.0-33.0) Mean Corpuscular Hemoglobin Concent 34.4 g/dL (32.0-36.0) Red Cell Distribution Width 14.4 % (11.5-14.5) Platelet Count 140 K/uL (150-450) Mean Platelet Volume 8.5 fL (7.2-11.1) Neutrophils (%) (Auto) 92.9 % (39.4-72.5) Lymphocytes (%) (Auto) 2.0 % (17.6-49.6) Monocytes (%) (Auto) 2.8 % (4.1-12.4) Eosinophils (%) (Auto) 1.7 % (0.4-6.7) Basophils (%) (Auto) 0.6 % (0.3-1.4) Nucleated RBC Relative Count (auto) 0.1 /100WBC Neutrophils # (Auto) 9.4 K/uL (2.0-7.4) Lymphocytes # (Auto) 0.2 K/uL (1.3-3.6) Monocytes # (Auto) 0.3 K/uL (0.3-1.0) Eosinophils # (Auto) 0.2 K/uL (0.0-0.5) Basophils # (Auto) 0.1 K/uL (0.0-0.1) Nucleated RBC Absolute Count (auto) 0.01 K/uL Carboxyhemoglobin 0.0 % (< 5.0) Glomerular Filtration Rate Calc 5.7 Calcium Level 8.8 mg/dl (8.4-10.2) Total Bilirubin 0.6 mg/dl (0.2-1.3) Aspartate Amino Transf (AST/SGOT) 20 U/L (0-35) Alanine Aminotransferase (ALT/SGPT) 27 U/L (0-56) Alkaline Phosphatase 135 U/L (0-126) Ammonia < 9 UMOL/L (9-33) Total Protein 6.0 gm/dl (6.3-8.2) Albumin 3.1 g/dl (3.5-5.0) Thyroid Stimulating Hormone (TSH) 0.77 uIU/ml (0.46-4.68) Serum Alcohol < 10 mg/dl Whole Blood Glucose 139 mg/DL (75-110) Urine Color Yellow Urine Clarity Turbid Urine pH 5.0 pH (4.8-9.5) Urine Specific Howard 1.017 Urine Protein 100 mg/dL (NEGATIVE) Urine Glucose (UA) Negative mg/dL (NEGATIVE) Urine Ketones Negative mg/dL (NEGATIVE) Urine Blood Moderate (NEGATIVE) Urine Nitrite Negative (NEGATIVE) Urine Bilirubin Negative (NEGATIVE) Urine Urobilinogen Negative mg/dL (0.2-1.9) Urine Leukocyte Esterase Moderate (NEGATIVE) Urine RBC 114 /HPF (0-2/HPF) Urine WBC 61494 /HPF (0-5/HPF) Urine WBC Clumps Many /HPF Urine Squamous Epithelial Cells Many /LPF (NONE-FEW) Urine Amorphous Crystals Few /HPF Urine Bacteria Negative /HPF (NONE-FEW) Urine Hyaline Casts Many /LPF (NONE-FEW) Urine Mucus None /HPF (NONE-FEW) Urine Opiates Screen Negative Urine Barbiturates Screen Negative Ur Tricyclic Antidepressants Screen Negative Urine Phencyclidine Screen Negative Urine Amphetamines Screen Negative Urine Benzodiazepines Screen Negative Urine Cocaine Screen Negative Urine Cannabinoids Screen Negative Toxicology Test 09/25/17 11:15 09/25/17 12:03 Serum Alcohol < 10 mg/dl Urine Opiates Screen Negative Urine Barbiturates Screen Negative Ur Tricyclic Antidepressants Screen Negative Urine Phencyclidine Screen Negative Urine Amphetamines Screen Negative Urine Benzodiazepines Screen Negative Urine Cocaine Screen Negative Urine Cannabinoids Screen Negative Urinalysis Test 09/25/17 12:03 Urine Color Yellow Urine Clarity Turbid Urine pH 5.0 pH (4.8-9.5) Urine Specific Howard 1.017 Urine Protein 100 mg/dL (NEGATIVE) Urine Glucose (UA) Negative mg/dL (NEGATIVE) Urine Ketones Negative mg/dL (NEGATIVE) Urine Blood Moderate (NEGATIVE) Urine Nitrite Negative (NEGATIVE) Urine Bilirubin Negative (NEGATIVE) Urine Urobilinogen Negative mg/dL (0.2-1.9) Urine Leukocyte Esterase Moderate (NEGATIVE) Urine RBC 114 /HPF (0-2/HPF) Urine WBC 49242 /HPF (0-5/HPF) Urine WBC Clumps Many /HPF Urine Squamous Epithelial Cells Many /LPF (NONE-FEW) Urine Amorphous Crystals Few /HPF Urine Bacteria Negative /HPF (NONE-FEW) Urine Hyaline Casts Many /LPF (NONE-FEW) Urine Mucus None /HPF (NONE-FEW) EKG/Imaging EKG Interpretation EKG shows a sinus tachycardia with voltage criteria for left atrial enlargement. Low voltage overall of the QRS complex. EKG shows incomplete left bundle branch block. EKG from February 18, 2017 shows normal sinus rhythm with left bundle branch block. Monitor Interpretation: Sinus Tachycardia Imaging [place] [facility] [place]IENT NAME: Serina Ferguson : 1955 MR: [id number] V: [id number] EXAM DATE: ORDERING PHYSICIAN: BLOSSOM BARRON TECHNOLOGIST: Location: [facility] [place] Patient: Serina Ferguson : 1955 Visit/Account:[id number] Date of Sevice: 09/25/[address] scan without contrast COMPARISONS: February 18, 2017 HISTORY: Altered mental status TECHNIQUE: Non-contrast head CT was performed with sagittal and coronal reformations. One of the following dose optimization techniques was utilized in the performance of this exam: automated exposure control; adjustment of the mA and/ or kV according to patient size; or use of iterative reconstruction technique. Specific details can be referenced in the facility's radiology CT exam operational policy. FINDINGS: There is no intracranial hemorrhage, hydrocephalus or midline shift. The basal cisterns, smith-white differentiation, and convexity sulci are maintained. Right cataract postsurgical change noted. Patchy confluent periventricular and deep white matter hypoattenuation similar to prior. Clear mastoid air cells, small right maxillary sinus mucous retention cyst and normal osseous structures. IMPRESSION: No acute intracranial abnormality. Unchanged nonspecific white matter hypoattenuation which may represent moderate to severe chronic small vessel ischemic change or residua of demyelinating disease. Correlate with history. Report Dictated By: Pan Padron MD at 09/25/2017 11:56 AM Report E-Signed By: Pan Padron MD at 09/25/2017 12:00 PM WSN:[id number] [place]ACILITY: [facility] [place] PATIENT NAME: Serina Ferguson : 1955 MR: [id number] V: [id number] EXAM DATE: [id number] ORDERING PHYSICIAN: BLOSSOM BARRON TECHNOLOGIST: Location: [facility] [place] Patient: Serina Ferguson : 1955 Visit/Account:[id number] Date of Sevice: 09/25/2017 Single view of the chest Indication: Altered mental status. Comparison: X-ray examination the chest September 12, 2016 Findings: Volumes are low. Heart appears enlarged although is likely accentuated by the low volumes and frontal projection. Mild airspace opacity is noted in the left base which may be a combination of consolidation and a trace left effusion. Further evaluation could be performed with a PA lateral view chest IMPRESSION: 1. Low volumes with borderline cardiomegaly. 2. Minimal left basilar airspace consolidation which could represent atelectasis or infiltrate. There is subtle blunting of left costophrenic sulcus suspicious for a small left effusion Report Dictated By: Nicko De MD at 09/25/2017 12:06 PM Report E-Signed By: Nicko De MD at 09/25/2017 12:08 PM WSN:[id number] ED Course/Re-evaluation Clinical Indication for ER IV: IV Access ED Course 09/25/2017 11:31:27 am After history and physical exam was performed differential diagnosis was formulated which includes but is not limited to vasovagal syncope, hypoglycemia, dysrhythmia, intracranial abnormality. Plan at this time will be to obtain CBC electrolytes catheter urinalysis along with culture. We will perform a CT of the head along with EKG. Re-evaluation 09/25/2017 12:33:10 pm she remains awake alert and oriented at baseline mental status. Workup here including CT scan EKG and all blood work is unremarkable. We 'll have patient be transferred to dialysis for her routine dialysis today. Decision to Disposition Date: Sep 25, 2017 Decision to Disposition Time: 12:33 Depart Departure Latest Vital Signs Vital Signs Date Time Temp Pulse Resp B/P (MAP) Pulse Ox O2 Delivery O2 Flow Rate FiO2 09/25/17 12:45 115 97 09/25/17 12:43 85/69 (74) 09/25/17 11:07 99.4 20 Room Air Impression: Primary Impression: Dialysis patient Additional Impression: Altered mental status, unspecified Condition: Improved Disposition: HOME OR SELF-CARE Referrals: FIDELINA CHILD MD (PCP) Patient Instructions: Altered Mental Status (ED) Additional Instructions: Go directly to outpatient dialysis for treatment Problem Qualifiers Additional Impression: Altered mental status, unspecified Altered mental status type: unspecified Qualified Codes: R41.82 - Altered mental status, unspecified BLOSSOM BARRON MD Sep 25, 2017 11:25
[2017-09-25 11:32] LABS: PLATELET COUNT, AUTOMATED 140 K/uL (150-450)
--- NOTE | 2017-09-25 12:04 | RADIOLOGY IMAGING REPORT ---
FACILITY: [facility] PATIENT NAME: Serina Ferguson : 1955 MR: [id number] V: [id number] EXAM DATE: ORDERING PHYSICIAN: BLOSSOM BARRON TECHNOLOGIST: Location: [facility] Patient: Serina Ferguson : 1955 Visit/Account:[id number] Date of Sevice: 09/25/[address] scan without contrast COMPARISONS: February 18, 2017 HISTORY: Altered mental status TECHNIQUE: Non-contrast head CT was performed with sagittal and coronal reformations. One of the following dose optimization techniques was utilized in the performance of this exam: autom ated exposure control; adjustment of the mA and/or kV according to patient size; or use of iterative reconstruction technique. Specific details can be referenced in the facility's radiology CT exam ope rational policy. FINDINGS: There is no intracranial hemorrhage, hydrocephalus or midline shift. The basal cisterns, smith-white differentiation, and convexity sulci are maintained. Right cataract postsurgical change noted. Patc hy confluent periventricular and deep white matter hypoattenuation similar to prior. Clear mastoid air cells, small right maxillary sinus mucous retention cyst and normal osseous structu res. IMPRESSION: No acute intracranial abnormality. Unchanged nonspecific white matter hypoattenuation which may represent moderate to severe chronic sma ll vessel ischemic change or residua of demyelinating disease. Correlate with history. Report Dictated By: Pan Padron MD at 09/25/2017 11:56 AM Report E-Signed By: Pan Padron MD at 09/25/2017 12:00 PM WSN:[id number]
--- NOTE | 2017-09-25 12:13 | RADIOLOGY IMAGING REPORT ---
FACILITY: [facility] PATIENT NAME: Serina Ferguson : 1955 MR: [id number] V: [id number] EXAM DATE: ORDERING PHYSICIAN: BLOSSOM BARRON TECHNOLOGIST: Location: [facility] Patient: Serina Ferguson : 1955 Visit/Account:[id number] Date of Sevice: 09/25/2017 Single view of the chest Indication: Altered mental status. Comparison: X-ray examination the chest September 12, 2016 Findings: Volumes are low. Heart appears enlarged although is likely accentuated by the low volumes and fronta l projection. Mild airspace opacity is noted in the left base which may be a combination of consolid ation and a trace left effusion. Further evaluation could be performed with a PA lateral view chest IMPRESSION: 1. Low volumes with borderline cardiomegaly. 2. Minimal left basilar airspace consolidation which could represent atelectasis or infiltrate. The re is subtle blunting of left costophrenic sulcus suspicious for a small left effusion Report Dictated By: Nicko De MD at 09/25/2017 12:06 PM Report E-Signed By: Nicko De MD at 09/25/2017 12:08 PM WSN:[id number]
[2017-09-25 12:43] VITALS: BP 85/69
--- NOTE | 2017-09-25 13:53 | EKG ---
FACILITY: [facility] - [place] PATIENT NAME: LUCAS NERI : [id number] MR: [id number] V: [id number] EXAM DATE: ORDERING PHYSICIAN: BLOSSOM BARRON TECHNOLOGIST: Vinicius Cornejo Reason : Blood Pressure : / mmHG Vent. Rate : 113 BPM Atrial Rate : 113 BPM P-R Int : 154 ms QRS Dur : 114 ms QT Int : 366 ms P-R-T Axes : 059 014 063 degrees QTc Int : 502 ms Sinus tachycardia Left axis Possible Left atrial enlargement Q waves through precordial leads suggests possible previous Anterolateral infarct Abnormal ECG Confirmed by ROCKY LOPEZ ([id number] on 09/25/2017 4:06:21 PM Referred By: Confirmed By:ROCKY LOPEZ
== END 2017-09-25 13:07 | disposition home or self-care (01) ==
LOC: ER 11:13
DX: R41.82 Altered mental status, unspecified (principal); N18.6 End stage renal disease; Z99.2 Dependence on renal dialysis; R00.0 Tachycardia, unspecified; I44.7 Left bundle-branch block, unspecified
CPT/HCPCS: 36416; 70450; 71045; 80305; 81001; 82140; 82375; 82948; 84443; 85025; 87088; 99283; G0480; 80320; 82040; 82247; 82310; 82374; 82435; 82565; 82947; 84075; 84132; 84155; 84295; 84450; 84460; 84520

== ENCOUNTER 2017-09-25 17:31 | Emergency (ER) | payer MEDICARE ==
[~2017-09-25] VITALS: Ht 152.4 cm; Wt 77.2 kg
--- NOTE | 2017-09-25 17:53 | ER Report ---
History and Physical Time Seen By MD: 17:41 Hx. of Stated Complaint: PT BROUGHT HERE FROM DIALYSIS. THEY WERE WORRIED ABOUT HER OXYGENATION AND BLOOD PRESSURES. HPI/ROS CHIEF COMPLAINT: Fever, confusion, hypoxia HISTORY OF PRESENT ILLNESS: 62-year-old female patient presents to emergency room with complaint of fever, confusion, hypoxia. Patient is a dialysis patient who was seen here in the emergency room earlier today. She did have a fall at home. EMS was contacted they did bring her into the emergency room. On evaluation here in the emergency room the patient had a normal CT scan as well as a possible pneumonia on chest x-ray. They returned to baseline at that time was sent to [facility] dialysis. All she was in dialysis patient was not able to keep her blood pressure up. They state that after dialysis they took her to weigh her and patient had an episode which became very confused. The nurse also noted that the patient had become hypoxic he was not able to keep her oxygen saturations greater than 80% on 6 L. At that time they bring her back to the emergency room. Patient denies having any pain. Patient was recently diagnosed with a wound to the right great toe. She denies having any nausea, vomiting or diarrhea. She did receive a dose of Tylenol in the dialysis unit. They state that she had a fever 102.3 when she arrived and then when she finished she was 100.4. REVIEW OF SYSTEMS: Respiratory: As noted above Cardiovascular: No chest pain, no palpitations. Gastrointestinal: No vomiting, no abdominal pain. Musculoskeletal: No back pain. Allergies: Coded Allergies: sulfamethoxazole (Verified Allergy, Intermediate, rash, 09/25/17) trimethoprim (Verified Allergy, Intermediate, rash, 09/25/17) Gadolinium-Containing Contrast Medi (Verified Allergy, Unknown, 09/25/17) Dialysis Patient piperacillin (Verified Allergy, Unknown, ITCHING, 09/25/17) 09/16/13: Pt tolerates Piperacillin/Tazobactam--been on Zosyn for osteomyelitis since 08/25/13. cah/PharmD tazobactam (Verified Allergy, Unknown, ITCHING, 09/25/17) 09/16/13: Pt tolerates Piperacillin/Tazobactam--been on Zosyn for osteomyelitis since 08/25/13. cah/PharmD ketorolac tromethamine (Verified Adverse Reaction, Intermediate, DECREASED RENAL FUNCTION, 09/25/17) Home Meds Reported Medications Gabapentin (GABAPENTIN) 300 Mg Capsule, 100 MG PO QPM, CAPSULE 07/22/17 Midodrine Hcl (MIDODRINE HCL) 5 Mg Tablet, 5 MG PO at the start of tx 07/03/17 Glucosa Juarez 2KCL/Chondroitin Juarez (GLUCOSAMINE CHONDROITIN CAPLET) 1 Each Tablet, 1 EACH PO DAILY 12/03/16 Calcium Carbonate (TUMS) 300 Mg Tab.chew, 1000 MG PO TIDCF Y for phospherous binder, TAB.CHEW 06/13/16 Vit A,C & E/Lutein/Minerals (OCUVITE TABLET) 1 Each Tablet, 1 EACH PO DAILY 05/16/16 Lactobacillus Rhamnosus Gg (CULTURELLE) 1 Each Capsule, 1 EACH PO DAILY, CAPSULE 05/16/16 Cholecalciferol (Vitamin D3) (VITAMIN D3) 1,000 Unit Tablet, 5000 UNIT PO DAILY , TAB 05/16/16 Furosemide (LASIX) 20 Mg Tablet, 80 MG PO non dialysis days, TAB take 80mg on non dialysis days-Roman, YANIRA, SAT, and SUN 03/30/16 Diphenhydramine Hcl (BENADRYL) 25 Mg Capsule, 25 MG PO Q6H Y, CAPSULE 09/15/13 Acetaminophen (Tylenol) 325 Mg Tab, 650 MG PO Q4-6H Y for PAIN 04/11/12 Past Medical/Surgical History Patient has a past medical history of seizures, CHF, pneumonia, back pain, diabetes, kidney failure, psoriasis, shingles, depression, uterine cancer. Patient has a surgical history of appendectomy, cholecystectomy, hysterectomy, esophagram with dilation. Patient has a family medical history of cancer, CAD, diabetes. Reviewed Nurses Notes: Yes Hx Smoking: No Smoking Status: Never Smoker Exposure to Second Hand Smoke?: No Hx Substance Use Disorder: No Hx Alcohol Use: No Constitutional Vital Sign - Last 24 Hours 09/25/17 09/25/17 09/25/17 09/25/17 17:40 17:46 17:46 17:59 Temp 99.6 Pulse 97 97 Resp 16 B/P (MAP) 101/52 (68) 101/52 109/91 (97) Pulse Ox 92 88 O2 Delivery Room Air O2 Flow Rate 5.0 09/25/17 09/25/17 09/25/17 09/25/17 18:00 18:01 18:15 18:16 Pulse 101 104 B/P (MAP) 173/124 (140) 166/147 (153) Pulse Ox 99 98 09/25/17 09/25/17 09/25/17 09/25/17 18:30 18:31 18:38 18:46 Pulse 107 107 B/P (MAP) 190/165 (173) 136/116 (123) Pulse Ox 97 97 09/25/17 09/25/17 09/25/17 09/25/17 18:47 18:48 18:52 19:00 Temp 99.2 Pulse 105 B/P (MAP) 100/57 (71) 100/60 (73) 97/51 (66) Pulse Ox 95 09/25/17 09/25/17 09/25/17 09/25/17 19:07 19:15 19:22 19:24 Pulse 102 99 B/P (MAP) 81/45 (57) 80/48 (59) Pulse Ox 96 95 09/25/17 09/25/17 09/25/17 09/25/17 19:25 19:37 19:42 19:43 Pulse 96 94 Resp 17 14 B/P (MAP) 69/39 (49) 90/58 (69) Pulse Ox 95 92 09/25/17 09/25/17 09/25/17 09/25/17 19:45 19:57 20:00 20:12 Pulse 97 98 B/P (MAP) 87/65 (72) 93/48 (63) Pulse Ox 96 98 09/25/17 09/25/17 09/25/17 09/25/17 20:15 20:27 20:30 20:42 Pulse 98 98 B/P (MAP) 86/63 (71) 96/50 (65) Pulse Ox 89 88 09/25/17 09/25/17 20:45 20:54 B/P (MAP) 100/51 (67) O2 Flow Rate 3.0 Intake and Output 09/25/17 09/25/17 09/26/17 15:00 23:00 07:00 Intake Total 1100 ml Balance 1100 ml Physical Exam General Appearance: The patient is alert, has no immediate need for airway protection and no current signs of toxicity. Patient is currently having some shaking. Respiratory: Chest is non tender, lungs are clear to auscultation. Cardiac: regular rate and rhythm Gastrointestinal: Abdomen is soft and non tender, no masses, bowel sounds normal. Musculoskeletal: Neck: Neck is supple and non tender. Extremities have full range of motion and are non tender. Skin: No rashes or lesions. DIFFERENTIAL DIAGNOSIS: After history and physical exam differential diagnosis was considered for fever in adults including but not limited to pneumonia, urinary tract infection, viral syndrome, and influenza. Medical Decision Making Data Points Result Diagram: 09/25/17 1805 Laboratory Hematology Test 09/25/17 18:00 09/25/17 18:05 Influenza Virus Type A (PCR) Negative (NEGATIVE) Influenza Virus Type B (PCR) Negative (NEGATIVE) Red Blood Count 3.28 M/uL (4.17-5.56) Mean Corpuscular Volume 102.3 fL (80.0-96.0) Mean Corpuscular Hemoglobin 35.4 pg (26.0-33.0) Mean Corpuscular Hemoglobin Concent 34.6 g/dL (32.0-36.0) Red Cell Distribution Width 14.7 % (11.5-14.5) Mean Platelet Volume 7.9 fL (7.2-11.1) Neutrophils (%) (Auto) 89.5 % (39.4-72.5) Lymphocytes (%) (Auto) 2.7 % (17.6-49.6) Monocytes (%) (Auto) 5.2 % (4.1-12.4) Eosinophils (%) (Auto) 2.4 % (0.4-6.7) Basophils (%) (Auto) 0.2 % (0.3-1.4) Nucleated RBC Relative Count (auto) 0.0 /100WBC Neutrophils # (Auto) 8.9 K/uL (2.0-7.4) Lymphocytes # (Auto) 0.3 K/uL (1.3-3.6) Monocytes # (Auto) 0.5 K/uL (0.3-1.0) Eosinophils # (Auto) 0.2 K/uL (0.0-0.5) Basophils # (Auto) 0.0 K/uL (0.0-0.1) Nucleated RBC Absolute Count (auto) 0.00 K/uL Lactate 2.4 mmol/L (0.7-2.1) Chemistry Test 09/25/17 18:00 09/25/17 18:05 Influenza Virus Type A (PCR) Negative (NEGATIVE) Influenza Virus Type B (PCR) Negative (NEGATIVE) White Blood Count 9.9 k/uL (4.5-11.0) Red Blood Count 3.28 M/uL (4.17-5.56) Hemoglobin 11.6 g/dL (12.0-16.0) Hematocrit 33.5 % (34.0-47.0) Mean Corpuscular Volume 102.3 fL (80.0-96.0) Mean Corpuscular Hemoglobin 35.4 pg (26.0-33.0) Mean Corpuscular Hemoglobin Concent 34.6 g/dL (32.0-36.0) Red Cell Distribution Width 14.7 % (11.5-14.5) Platelet Count 131 K/uL (150-450) Mean Platelet Volume 7.9 fL (7.2-11.1) Neutrophils (%) (Auto) 89.5 % (39.4-72.5) Lymphocytes (%) (Auto) 2.7 % (17.6-49.6) Monocytes (%) (Auto) 5.2 % (4.1-12.4) Eosinophils (%) (Auto) 2.4 % (0.4-6.7) Basophils (%) (Auto) 0.2 % (0.3-1.4) Nucleated RBC Relative Count (auto) 0.0 /100WBC Neutrophils # (Auto) 8.9 K/uL (2.0-7.4) Lymphocytes # (Auto) 0.3 K/uL (1.3-3.6) Monocytes # (Auto) 0.5 K/uL (0.3-1.0) Eosinophils # (Auto) 0.2 K/uL (0.0-0.5) Basophils # (Auto) 0.0 K/uL (0.0-0.1) Nucleated RBC Absolute Count (auto) 0.00 K/uL Lactate 2.4 mmol/L (0.7-2.1) EKG/Imaging Imaging Two-view examination right foot FINDINGS: No acute osseous pathology. Slight truncation of the distal aspect of the great toe distal phalanx with no obvious fracture. , There is a linear lucency projecting through the distal terminal tuft and a subtle nondisplaced fracture not excluded. Soft tissue changes noted adjacent compatible with the clinical history of a soft tissue wound. No foreign material. No air. Atherosclerotic disease in the posterior tibial and ventricular distress pedis arteries. Soft tissue prominence of the dorsum of foot. IMPRESSION: 1. Soft tissue changes adjacent to the distal sinus great toe consistent with clinical history of a wound. 2. Faint distal terminal tuft transverse lucency and a subtle distal nondisplaced fracture not excluded. Report Dictated By: Salvador Tineo MD at 09/25/2017 6:42 PM Report E-Signed By: Salvador Tineo MD at 09/25/2017 6:47 PM ED Course/Re-evaluation ED Course Patient was admitted to exam room, history and physical were obtained. Differential diagnoses were considered. On examination patient does feel warm to the touch, lungs are clear, heart is tachycardia. An influenza screen, repeat CBC, lactate an x-ray of the right foot were done. The influenza screen was negative, CBC showed a white count of 9.9 with a left shift of 89% neutrophils, lactate was elevated at 2.4 even after dialysis. X-rays right foot showed a possible lucency through the distal tuft of the great toe. Patient did receive Tylenol in dialysis prior to returning to emergency room. Patient was placed on oxygen mask was able to get her oxygen up to 92% on 2 L. I discussed the case with Dr. Aranda, hospitalist, who stated that the patient likely needed to be transferred down to [facility] as she will need to be inpatient. I then discussed the case with Dr. Sevilla, hospitalist, who did agree to accept the patient for admission. Patient did have a blood pressure of 90/48 manually. The patient will be transferred via ambulance. I discussed this with the patient and her and they verbalized understanding and agreement with plan. Decision to Disposition Date: Sep 25, 2017 Decision to Disposition Time: 20:07 Depart Departure Latest Vital Signs Vital Signs Date Time Temp Pulse Resp B/P (MAP) Pulse Ox O2 Delivery O2 Flow Rate FiO2 09/25/17 20:54 3.0 09/25/17 20:45 100/51 (67) 09/25/17 20:42 98 88 09/25/17 19:42 14 1/31/18 18:48 99.2 09/25/17 17:46 Room Air Impression: Primary Impression: UTI (urinary tract infection) Additional Impression: SIRS (systemic inflammatory response syndrome) Condition: Condition Unchanged Disposition: XFER TO [facility] Referrals: FIDELINA CHILD MD (PCP) Problem Qualifiers Primary Impression: UTI (urinary tract infection) Urinary tract infection type: acute cystitis Hematuria presence: with hematuria Qualified Codes: N30.01 - Acute cystitis with hematuria KOBI RENEE Sep 25, 2017 17:53
[2017-09-25 18:17] LABS: PLATELET COUNT, AUTOMATED 131 K/uL (150-450)
--- NOTE | 2017-09-25 18:50 | RADIOLOGY IMAGING REPORT ---
FACILITY: PATIENT NAME: Serina Ferguson : 1955 MR: [id number] V: [id number] EXAM DATE: ORDERING PHYSICIAN: KOBI RENEE TECHNOLOGIST: Location: [facility] [place] Patient: Serina Ferguson : 1955 Visit/Account:[id number] Date of Sevice: 09/25/2017 FOOT 3 VIEW RIGHT HISTORY: Wound to great toe FINDINGS: Two-view examination right foot FINDINGS: No acute osseous pathology. Slight truncation of the distal aspect of the great toe distal phalanx wi th no obvious fracture. , There is a linear lucency projecting through the distal terminal tuft and a subtle nondisplaced fracture not excluded. Soft tissue changes noted adjacent compatible with the cl inical history of a soft tissue wound. No foreign material. No air. Atherosclerotic disease in the posterior tibial and ventricular distress pedis arteries. Soft tissue prominence of the dorsum of foot. IMPRESSION: 1. Soft tissue changes adjacent to the distal sinus great toe consistent with clinical history of a w ound. 2. Faint distal terminal tuft transverse lucency and a subtle distal nondisplaced fracture not exclud ed. Report Dictated By: Salvador Tineo MD at 09/25/2017 6:42 PM Report E-Signed By: Salvador Tineo MD at 09/25/2017 6:47 PM WSN:[id number]
[2017-09-25] MEDS ORDERED: NS(*) 0.9% 1000 ML BAG 1,000 ML IV ONE (19:40)
[2017-09-25] MEDS ORDERED: cefTRIAXone(*) 1 GM VIAL 1 GM in NS(*) 0.9% 100 ML ADDVANT BAG 100 ML IVPB ONE (19:55)
[2017-09-25 21:15] VITALS: BP 101/49
== END 2017-09-25 21:25 | disposition short-term general hospital (02) ==
LOC: ER 18:01
DX: N39.0 Urinary tract infection, site not specified (principal); R65.10 Systemic inflammatory response syndrome (SIRS) of non-infectious origin without acute organ dysfunction
CPT/HCPCS: 36415; 73630; 83605; 85025; 87040; 87502; 93005; 96365; 99285; J0696; J7030; J7050

== ENCOUNTER → 2017-09-25 | Outpatient (CLI) | payer MEDICARE | LOC: AMB 10:42 | PROVIDERS: ATTEND Nurse Practitioner | DX: R53.1 Weakness (principal); R09.02 Hypoxemia; E11.9 Type 2 diabetes mellitus without complications | CPT/HCPCS: A0425; A0429 ==

== ENCOUNTER → 2017-09-25 | Outpatient (CLI) | payer MEDICARE | LOC: AMB 21:15 | PROVIDERS: ATTEND Nurse Practitioner | DX: A41.9 Sepsis, unspecified organism (principal) | CPT/HCPCS: A0425; A0426 ==

== ENCOUNTER 2017-10-02 11:11 | Outpatient (RCR) | payer MEDICARE ==
[2017-10-02] MEDS ORDERED: VANCOMYCIN IVPB PRN (11:15)
[2017-10-02] MEDS ORDERED: [UNRECOGNIZED DRUG - OTHER] IVPB PRN (11:15)
[2017-10-03] MEDS ORDERED: [UNRECOGNIZED DRUG - OTHER] IVPB PRN (13:25)
[2017-10-03] MEDS ORDERED: VANCOMYCIN IVPB PRN (13:25)
[2017-10-07 11:01] LABS: PLATELET COUNT, AUTOMATED 141 K/uL (150-450)
[2017-10-09] MEDS ORDERED: ADDVIAL IVPB PRN
[2017-10-09] MEDS ORDERED: NS 0.9% IVPB PRN
[2017-10-09] MEDS ORDERED: VANCOMYCIN IVPB PRN
[2017-10-09] MEDS: VANCOMYCIN IVPB PRN (13:03)
[2017-10-09] MEDS: NS 0.9% IVPB PRN (13:03)
[2017-10-09] MEDS: ADDVIAL IVPB PRN (13:03)
[2017-10-11] MEDS: NS 0.9% IVPB PRN (12:22)
[2017-10-11] MEDS: ADDVIAL IVPB PRN (12:22)
[2017-10-11] MEDS: VANCOMYCIN IVPB PRN (12:22)
[2017-10-14 10:51] LABS: PLATELET COUNT, AUTOMATED 158 K/uL (150-450)
[2017-10-14] MEDS ORDERED: VANCOMYCIN (*) 0.5 GM VIAL 0.5 GM in NS(*) 0.9% 100 ML BAG 100 ML IVPB ONE (12:20)
[2017-10-16] MEDS ORDERED: VANCOMYCIN HCL IVPB PRN ×2 (00:05→12:40)
[2017-10-16] MEDS ORDERED: ADD IVPB PRN ×2 (00:05→12:40)
[2017-10-16] MEDS ORDERED: NS 0.9% IVPB PRN ×2 (00:05→12:40)
[2017-10-21 10:42] LABS: PLATELET COUNT, AUTOMATED 146 K/uL (150-450)
[2017-10-21] MEDS: VANCOMYCIN (*) 0.5 GM VIAL 0.5 GM in NS(*) 0.9% 100 ML BAG 100 ML IVPB PRN (12:48)
[2017-10-23] MEDS: VANCOMYCIN (*) 0.5 GM VIAL 0.5 GM in NS(*) 0.9% 100 ML BAG 100 ML IVPB PRN (12:30)
[2017-10-25] MEDS: VANCOMYCIN (*) 0.5 GM VIAL 0.5 GM in NS(*) 0.9% 100 ML BAG 100 ML IVPB PRN (12:36)
[2017-10-28 10:58] LABS: PLATELET COUNT, AUTOMATED 191 K/uL (150-450)
[2017-10-28] MEDS: VANCOMYCIN (*) 0.5 GM VIAL 0.5 GM in NS(*) 0.9% 100 ML BAG 100 ML IVPB PRN (12:43)
[2017-10-30] MEDS: VANCOMYCIN (*) 0.5 GM VIAL 0.5 GM in NS(*) 0.9% 100 ML BAG 100 ML IVPB PRN (12:33)
[2017-11-01] MEDS: VANCOMYCIN (*) 0.5 GM VIAL 0.5 GM in NS(*) 0.9% 100 ML BAG 100 ML IVPB PRN (12:36)
[2017-11-04 11:32] LABS: PLATELET COUNT, AUTOMATED 148 K/uL (150-450)
[2017-11-04] MEDS: VANCOMYCIN (*) 0.5 GM VIAL 0.5 GM in NS(*) 0.9% 100 ML BAG 100 ML IVPB PRN (12:33)
[2017-11-06] MEDS: VANCOMYCIN (*) 0.5 GM VIAL 0.5 GM in NS(*) 0.9% 100 ML BAG 100 ML IVPB PRN (12:35)
[2017-11-08] MEDS: VANCOMYCIN (*) 0.5 GM VIAL 0.5 GM in NS(*) 0.9% 100 ML BAG 100 ML IVPB PRN (12:25)
== END 2017-11-08 13:30 | disposition home or self-care (01) ==
LOC: SPU 11:11
PROVIDERS: ATTEND Internal Medicine Nephrology
DX: M86.8X8 Other osteomyelitis, other site (principal); R21 Rash and other nonspecific skin eruption; N18.9 Chronic kidney disease, unspecified; Z89.429 Acquired absence of other toe(s), unspecified side
CPT/HCPCS: 80202; 85025; 86140; 96365; 96366; J3370; J7050; 82040; 82247; 82310; 82374; 82435; 82565; 82947; 84075; 84132; 84155; 84295; 84450; 84460; 84520

== ENCOUNTER 2018-03-19 08:29 | Emergency (ER) | payer MEDICARE ==
[~2018-03-19 08:29] MED LIST changes: -FURO-47 PO; -GLUC-198 PO; -HYDR-385 PO; -INSULIN
--- NOTE | 2018-03-19 08:38 | ER Report ---
History and Physical Time Seen By MD: 08:37 HPI/ROS CHIEF COMPLAINT: altered mental status and fever. HISTORY OF PRESENT ILLNESS: This is a 62 year old female. She is a dialysis patient. She was brought to the ER today because of weakness, fever and some confusion. She has been weak for a couple of days. She has been vomiting for a few days. Fever by EMS reported at 107, but here in the ER was 102.3. Tachycardia. Denies pain. She is oriented to person and place but not to time. She can answer some questions. Level of consciousness seems to wax and wane. Denies chest pain. She is wearing oxygen by nasal canula and is on 3 liters. She was supposed to have dialysis today. REVIEW OF SYSTEMS: Unable to obtain fully because of mental status. Allergies: Coded Allergies: sulfamethoxazole (Verified Allergy, Intermediate, rash, 09/25/17) trimethoprim (Verified Allergy, Intermediate, rash, 09/25/17) Gadolinium-Containing Contrast Medi (Verified Allergy, Unknown, 09/25/17) Dialysis Patient piperacillin (Verified Allergy, Unknown, ITCHING, 09/25/17) 09/16/13: Pt tolerates Piperacillin/Tazobactam--been on Zosyn for osteomyelitis since 08/25/13. cah/PharmD tazobactam (Verified Allergy, Unknown, ITCHING, 09/25/17) 09/16/13: Pt tolerates Piperacillin/Tazobactam--been on Zosyn for osteomyelitis since 08/25/13. cah/PharmD ketorolac tromethamine (Verified Adverse Reaction, Intermediate, DECREASED RENAL FUNCTION, 09/25/17) Home Meds Reported Medications [Insulin ] No Conflict Check 03/19/18 Hydrocodone Bit/Acetaminophen (HYDROCODON-ACETAMINOPHEN 5-325) 1 Each Tablet, 1 EACH PO Q4H, TAB 03/19/18 Omeprazole Magnesium (PRILOSEC OTC) 20 Mg Tablet.dr, 1 TAB PO QDAY, TAB 02/17/18 Calcium Carbonate (TUMS) 300 Mg Tab.chew, 1000 MG PO TIDCF Y for phospherous binder, TAB.CHEW 06/13/16 Lactobacillus Rhamnosus Gg (CULTURELLE) 1 Each Capsule, 1 EACH PO DAILY, CAPSULE 05/16/16 Cholecalciferol (Vitamin D3) (VITAMIN D3) 1,000 Unit Tablet, 5000 UNIT PO DAILY , TAB 05/16/16 Diphenhydramine Hcl (BENADRYL) 25 Mg Capsule, 25 MG PO Q6H Y, CAPSULE 09/15/13 Acetaminophen (Tylenol) 325 Mg Tab, 650 MG PO Q4-6H Y for PAIN 04/11/12 Discontinued Reported Medications Gabapentin (GABAPENTIN) 300 Mg Capsule, 100 MG PO QPM, CAPSULE 07/22/17 Midodrine Hcl (MIDODRINE HCL) 5 Mg Tablet, 5 MG PO start of tx and 90mi take 5mg at the start of tx and mid tx at 90min 07/03/17 Glucosa Juarez 2KCL/Chondroitin Juarez (GLUCOSAMINE CHONDROITIN CAPLET) 1 Each Tablet, 1 EACH PO DAILY 12/03/16 Vit A,C & E/Lutein/Minerals (OCUVITE TABLET) 1 Each Tablet, 1 EACH PO DAILY 05/16/16 Furosemide (LASIX) 20 Mg Tablet, 80 MG PO non dialysis days, TAB take 80mg on non dialysis days-TUE, THUR, SAT, and SUN 03/30/16 Past Medical/Surgical History Type 2 diabetes, congestive heart failure, end-stage renal disease on dialysis. History of Schatzki's ring in the esophagus with dilations, arthritis, psoriasis , recurring shingles. Surgeries include hysterectomy for uterine cancer, appendectomy, cholecystectomy Reviewed Nurses Notes: Yes Hx Smoking: No Smoking Status: Never Smoker Exposure to Second Hand Smoke?: No Hx Substance Use Disorder: No Hx Alcohol Use: No Constitutional Vital Sign - Last 24 Hours 03/19/18 03/19/18 03/19/18 03/19/18 08:29 08:29 08:34 08:34 Pulse ? B/P (MAP) 127/84 (98) 127/84 (98) 03/19/18 03/19/18 03/19/18 03/19/18 08:36 08:39 08:39 08:44 Temp 102.3 Pulse 111 109 109 112 Resp 18 10 10 12 B/P (MAP) 127/84 Pulse Ox 100 97 97 100 O2 Delivery Nasal Cannula 03/19/18 03/19/18 03/19/18 03/19/18 08:44 08:50 08:50 08:54 Pulse 112 114 Resp 12 11 B/P (MAP) 153/78 (103) 153/78 (103) Pulse Ox 100 93 7/25/18 7/25/18 7/25/18 7/25/18 08:54 08:59 08:59 09:00 Pulse 114 113 113 Resp 11 15 15 B/P (MAP) 164/73 (103) Pulse Ox 93 96 96 7/25/18 7/25/18 7/25/18 7/25/18 09:00 09:04 09:04 09:04 Pulse 114 114 Resp 20 20 B/P (MAP) 164/73 (103) Pulse Ox 97 97 O2 Flow Rate 1.0 7/25/18 7/25/18 7/25/18 7/25/18 09:09 09:09 09:10 09:10 Pulse 111 111 Resp 16 16 B/P (MAP) 104/88 (93) 104/88 (93) Pulse Ox 93 93 7/25/18 7/25/18 7/25/18 7/25/18 09:14 09:14 09:19 09:19 Pulse 111 111 104 104 Resp 15 15 16 16 Pulse Ox 97 97 98 98 7/25/18 7/25/18 7/25/18 7/25/18 09:24 09:24 09:29 09:34 Pulse 105 105 112 110 Resp 17 17 10 14 Pulse Ox 96 96 93 90 7/25/18 7/25/18 7/25/18 7/25/18 09:39 09:40 09:44 09:49 Pulse 108 106 106 Resp 10 16 B/P (MAP) 94/55 (68) Pulse Ox 95 95 25/18 7/25/18 7/25/18 7/25/18 09:54 09:59 10:00 10:14 Pulse 103 105 107 Resp 10 11 28 B/P (MAP) 102/62 (75) Pulse Ox 98 95 96 7/25/18 7/25/18 7/25/18 7/25/18 10:15 10:19 10:24 10:29 Pulse 104 104 104 Resp 13 11 11 B/P (MAP) 108/58 (75) Pulse Ox 96 96 97 7/25/18 7/25/18 7/25/18 7/25/18 10:30 10:34 10:39 10:44 Pulse 103 102 104 Resp 23 17 17 B/P (MAP) 112/63 (79) Pulse Ox 97 94 96 03/19/18 03/19/18 03/19/18 03/19/18 10:49 10:54 10:59 11:00 Pulse 104 105 105 Resp 24 16 16 B/P (MAP) 132/65 (87) Pulse Ox 97 97 97 03/19/18 03/19/18 03/19/18 03/19/18 11:04 11:09 11:14 11:15 Pulse 102 102 104 Resp 11 13 19 B/P (MAP) 132/73 (92) Pulse Ox 98 97 100 Intake and Output 03/19/18 03/19/18 03/20/18 15:00 23:00 07:00 Intake Total 350 ml Output Total 5 ml Balance 345 ml Physical Exam General Appearance: The patient is alert, but drifts to sleep easily, but also awakens easily. Irritable with interventions, often shouting out and profane. She is able to answer simple questions most of the time. Does not appear to be in distress. Eyes: Pupils are equal, round. Reactive to light. No pallor, injection or icterus. Extraocular movements are intact. ENT: Mucous membranes are moist. Normal oral mucosa. Posterior oropharynx is normal. Neck: Supple and non tender. Respiratory: Lungs are clear to auscultation. Cardiovascular: Tachycardia but with a regular rhythm No murmurs, gallops or rubs. Normal capillary refill. 1+ edema bilateral ankles. Gastrointestinal: Abdomen is soft and non tender. Nondistended. Normal active bowel sounds. Genitourinary: No irritation around the vagina and urethra with catheter insertion. Neurological: Alert, oriented to person and place, not to time. Waxing and waning mental status. Moving all extremities without any focal deficits. Skin: Warm and dry. No rashes. Mild skin changes in shins, but no warmth or breakdown noted. Musculoskeletal: Has some healing wounds on the left foot/toes, but no redness, warmth or drainage. Full range of motion. Has some tenderness with pressing on lower legs. DIFFERENTIAL DIAGNOSIS: After history and physical exam, differential diagnosis was considered for patient with some waxing and waning mental status and confusion with fevers, suspecting she likely has infection with early sepsis. Medical Decision Making Data Points Result Diagram: 03/19/18 0837 03/19/18 0000 Laboratory Hematology Test 03/19/18 00:00 03/19/18 08:37 03/19/18 10:10 Sodium Level 136 mmol/L (137-145) Potassium Level 6.0 mmol/L (3.5-5.0) Chloride Level 95 mmol/L (98-107) Carbon Dioxide Level 25 mmol/L (22-31) Blood Urea Nitrogen 47 mg/dl (7-18) Creatinine 7.90 mg/dl (0.52-1.04) Glomerular Filtration Rate Calc 5.2 Random Glucose 379 mg/dl (75-110) Lactate 5.0 mmol/L (0.7-2.1) Calcium Level 9.1 mg/dl (8.4-10.2) Magnesium Level 2.4 mg/dl (1.7-2.2) Total Bilirubin 0.6 mg/dl (0.2-1.3) Aspartate Amino Transf (AST/SGOT) 31 U/L (0-35) Alanine Aminotransferase (ALT/SGPT) 13 U/L (0-56) Alkaline Phosphatase 143 U/L (0-126) Troponin I 0.048 ng/ml Total Protein 6.7 g/dl (6.3-8.2) Albumin 3.7 g/dl (3.5-5.0) Red Blood Count 3.85 M/uL (4.17-5.56) Mean Corpuscular Volume 98.5 fL (80.0-96.0) Mean Corpuscular Hemoglobin 33.5 pg (26.0-33.0) Mean Corpuscular Hemoglobin Concent 34.0 g/dL (32.0-36.0) Red Cell Distribution Width 15.3 % (11.5-14.5) Mean Platelet Volume 8.8 fL (7.2-11.1) Neutrophils (%) (Auto) 93.4 % (39.4-72.5) Lymphocytes (%) (Auto) 1.5 % (17.6-49.6) Monocytes (%) (Auto) 4.6 % (4.1-12.4) Eosinophils (%) (Auto) 0.2 % (0.4-6.7) Basophils (%) (Auto) 0.3 % (0.3-1.4) Nucleated RBC Relative Count (auto) 0.1 /100WBC Neutrophils # (Auto) 10.6 K/uL (2.0-7.4) Lymphocytes # (Auto) 0.2 K/uL (1.3-3.6) Monocytes # (Auto) 0.5 K/uL (0.3-1.0) Eosinophils # (Auto) 0.0 K/uL (0.0-0.5) Basophils # (Auto) 0.0 K/uL (0.0-0.1) Nucleated RBC Absolute Count (auto) 0.01 K/uL Urine Color Yellow Urine Clarity Clear Urine pH 8.0 pH (4.8-9.5) Urine Specific [place] 1.005 Urine Protein >=2000 mg/dL (NEGATIVE) Urine Glucose (UA) 250 mg/dL (NEGATIVE) Urine Ketones Negative mg/dL (NEGATIVE) Urine Blood Large (NEGATIVE) Urine Nitrite Negative (NEGATIVE) Urine Bilirubin Negative (NEGATIVE) Urine Urobilinogen 0.2 mg/dL (0.2-1.9) Urine Leukocyte Esterase Moderate (NEGATIVE) Urine RBC 1-5 /HPF (0-2/HPF) Urine WBC 10-20 /HPF (0-5/HPF) Urine Squamous Epithelial Cells Rare /LPF (NONE-FEW) Urine Bacteria Few /HPF (NONE-FEW) Urine Mucus Few /HPF (NONE-FEW) Chemistry Test 03/19/18 00:00 03/19/18 08:37 03/19/18 10:10 Glomerular Filtration Rate Calc 5.2 Lactate 5.0 mmol/L (0.7-2.1) Calcium Level 9.1 mg/dl (8.4-10.2) Magnesium Level 2.4 mg/dl (1.7-2.2) Total Bilirubin 0.6 mg/dl (0.2-1.3) Aspartate Amino Transf (AST/SGOT) 31 U/L (0-35) Alanine Aminotransferase (ALT/SGPT) 13 U/L (0-56) Alkaline Phosphatase 143 U/L (0-126) Troponin I 0.048 ng/ml Total Protein 6.7 g/dl (6.3-8.2) Albumin 3.7 g/dl (3.5-5.0) White Blood Count 11.4 k/uL (4.5-11.0) Red Blood Count 3.85 M/uL (4.17-5.56) Hemoglobin 12.9 g/dL (12.0-16.0) Hematocrit 37.9 % (34.0-47.0) Mean Corpuscular Volume 98.5 fL (80.0-96.0) Mean Corpuscular Hemoglobin 33.5 pg (26.0-33.0) Mean Corpuscular Hemoglobin Concent 34.0 g/dL (32.0-36.0) Red Cell Distribution Width 15.3 % (11.5-14.5) Platelet Count 149 K/uL (150-450) Mean Platelet Volume 8.8 fL (7.2-11.1) Neutrophils (%) (Auto) 93.4 % (39.4-72.5) Lymphocytes (%) (Auto) 1.5 % (17.6-49.6) Monocytes (%) (Auto) 4.6 % (4.1-12.4) Eosinophils (%) (Auto) 0.2 % (0.4-6.7) Basophils (%) (Auto) 0.3 % (0.3-1.4) Nucleated RBC Relative Count (auto) 0.1 /100WBC Neutrophils # (Auto) 10.6 K/uL (2.0-7.4) Lymphocytes # (Auto) 0.2 K/uL (1.3-3.6) Monocytes # (Auto) 0.5 K/uL (0.3-1.0) Eosinophils # (Auto) 0.0 K/uL (0.0-0.5) Basophils # (Auto) 0.0 K/uL (0.0-0.1) Nucleated RBC Absolute Count (auto) 0.01 K/uL Urine Color Yellow Urine Clarity Clear Urine pH 8.0 pH (4.8-9.5) Urine Specific Hiram 1.005 Urine Protein >=2000 mg/dL (NEGATIVE) Urine Glucose (UA) 250 mg/dL (NEGATIVE) Urine Ketones Negative mg/dL (NEGATIVE) Urine Blood Large (NEGATIVE) Urine Nitrite Negative (NEGATIVE) Urine Bilirubin Negative (NEGATIVE) Urine Urobilinogen 0.2 mg/dL (0.2-1.9) Urine Leukocyte Esterase Moderate (NEGATIVE) Urine RBC 1-5 /HPF (0-2/HPF) Urine WBC 10-20 /HPF (0-5/HPF) Urine Squamous Epithelial Cells Rare /LPF (NONE-FEW) Urine Bacteria Few /HPF (NONE-FEW) Urine Mucus Few /HPF (NONE-FEW) Urinalysis Test 03/19/18 10:10 Urine Color Yellow Urine Clarity Clear Urine pH 8.0 pH (4.8-9.5) Urine Specific Hiram 1.005 Urine Protein >=2000 mg/dL (NEGATIVE) Urine Glucose (UA) 250 mg/dL (NEGATIVE) Urine Ketones Negative mg/dL (NEGATIVE) Urine Blood Large (NEGATIVE) Urine Nitrite Negative (NEGATIVE) Urine Bilirubin Negative (NEGATIVE) Urine Urobilinogen 0.2 mg/dL (0.2-1.9) Urine Leukocyte Esterase Moderate (NEGATIVE) Urine RBC 1-5 /HPF (0-2/HPF) Urine WBC 10-20 /HPF (0-5/HPF) Urine Squamous Epithelial Cells Rare /LPF (NONE-FEW) Urine Bacteria Few /HPF (NONE-FEW) Urine Mucus Few /HPF (NONE-FEW) Microbiology Microbiology Date/Time Source Procedure Growth Status 03/19/18 00:00 Blood Blood Culture - Preliminary NO GROWTH SO FAR, SET LATE. REINCUBATED Resulted EKG/Imaging EKG Interpretation 12 lead EKG: Rhythm: Sinus tachycardia, rate 113 [place]: Left axis QRS: Left bundle branch block, known from prior EKGs ST segments: ST changes present, but have been consistent on other EKGs with a left bundle branch block. Unchanged when compared with last EKG done on September 252017. Imaging Exam type: CHEST SINGLE AP History: altered mental status, fever Comparison: AP chest September 25, 2017. And CTA chest September 12, 2016 Findings: There is a small amount of linear stranding persisting in the left lung base although appears partially improved when compared to the prior AP chest from September 25, 2017. There is also minimal airspace consolidation in the lateral aspect of the right lung base. Similar changes were seen on the prior CTA of the chest from 2016 suggesting these are chronic findings. There is mild prominence of the central pulmonary arteries. Cardiac silhouette is normal in size. There is a dual lumen right-sided central venous catheter distal tip projects over the superior vena cava IMPRESSION: 1. Mild linear stranding left lung base and subtle airspace consolidation lateral right lung base appears similar to prior CT of the chest from August suggesting chronic finding. Report Dictated By: Liz Aponte MD at 03/19/2018 9:18 AM ED Course/Re-evaluation Clinical Indication for ER IV: Hydration, Hypotention, IV Access ED Course The patient continues to switch between being confused and at times looking like normal mental status. Her white count is mildly elevated with significant left shift. Lactate, Creatinine and Potassium are elevated. Mild decrease in Sodium. Urine was enough for culture only, awaiting urinalysis. Still with tachycardia. Initial blood pressure was normal, a few slightly lower recently. Still with waxing and waning mental status. Called and spoke with Dr. Frey at [facility] in [place]. We will transfer her there for further treatment. Will start a 500cc NS bolus and given Vancomycin 1000mg IV and Primaxin 500mg IV. Arranging ground transport there for further treatment. Decision to Disposition Date: Mar 19, 2018 Decision to Disposition Time: 10:13 Transfer Facility Patient was transferred to [facility] via ambulance. The transfer was emergent, and was required because the capabilities of the receiving hospital. Consent for transfer was obtained from the patient. See EMTALA for transfer orders. Depart Departure Latest Vital Signs Vital Signs Date Time Temp Pulse Resp B/P (MAP) Pulse Ox O2 Delivery O2 Flow Rate FiO2 03/19/18 11:15 132/73 (92) 03/19/18 11:14 104 19 100 03/19/18 09:04 1.0 03/19/18 08:36 102.3 Nasal Cannula Impression: Primary Impression: Sepsis Additional Impression: End stage renal disease Condition: Condition Unchanged Disposition: XFER TO [facility] Referrals: FIDELINA CHILD MD (PCP) Problem Qualifiers Primary Impression: Sepsis Sepsis type: sepsis due to unspecified organism Qualified Codes: A41.9 - Sepsis, unspecified organism WALLY AZUL MD Mar 19, 2018 08:38
--- NOTE | 2018-03-19 08:55 | EKG ---
FACILITY: [facility] [place] PATIENT NAME: LUCAS NERI : [id number] MR: [id number] V: [id number] EXAM DATE: ORDERING PHYSICIAN: WALLY AZUL TECHNOLOGIST: SHEFALI Test Reason : FEVER Blood Pressure : / mmHG Vent. Rate : 113 BPM Atrial Rate : 113 BPM P-R Int : 164 ms QRS Dur : 114 ms QT Int : 356 ms P-R-T Axes : 065 -05 092 degrees QTc Int : 488 ms Sinus tachycardia Low voltage QRS Septal infarct (cited on or before 25-SEP-2017) Abnormal ECG When compared with ECG of 25-SEP-2017 11:17, Questionable change in initial forces of Lateral leads Referred By: LATHA Confirmed By:
[2018-03-19 09:05] LABS: PLATELET COUNT, AUTOMATED 149 K/uL (150-450)
--- NOTE | 2018-03-19 09:26 | RADIOLOGY IMAGING REPORT ---
FACILITY: [facility] [place] PATIENT NAME: Serina Ferguson : 1955 MR: [id number] V: [id number] EXAM DATE: ORDERING PHYSICIAN: WALLY AZUL TECHNOLOGIST: Location: [facility] Patient: Serina Ferguson : 1955 Visit/Account:[id number] Date of Sevice: 03/19/2018 Exam type: CHEST SINGLE AP History: altered mental status, fever Comparison: AP chest September 25, 2017. And CTA chest September 12, 2016 Findings: There is a small amount of linear stranding persisting in the left lung base although appears partial ly improved when compared to the prior AP chest from September 25, 2017. There is also minimal airspac e consolidation in the lateral aspect of the right lung base. Similar changes were seen on the prior CTA of the chest from 2016 suggesting these are chronic findings. There is mild prominence of the c entral pulmonary arteries. Cardiac silhouette is normal in size. There is a dual lumen right-sided central venous catheter distal tip projects over the superior vena cava IMPRESSION: 1. Mild linear stranding left lung base and subtle airspace consolidation lateral right lung base ap pears similar to prior CT of the chest from September 12, 2016 suggesting chronic finding. Report Dictated By: Liz Aponte MD at 03/19/2018 9:18 AM Report E-Signed By: Liz Aponte MD at 03/19/2018 9:22 AM WSN:[email or web address]
[2018-03-19] MEDS ORDERED: HYDR-385 PO (09:56)
[2018-03-19] MEDS ORDERED: INSULIN (09:56)
[2018-03-19] MEDS ORDERED: IMIPENEM/CILASTA(*) 500MG VIAL 500 MG in NS(*) 0.9% 100 ML BAG 100 ML IVPB ONE (10:25)
[2018-03-19] MEDS ORDERED: VANCOMYCIN 1 GM ADDVIAL 1 GM in NS(*) 0.9% 250 ML ADDVAN BAG 250 ML IVPB ONE (10:25)
[2018-03-19] MEDS ORDERED: NS(*) 0.9% 500 ML BAG 500 ML IV ONE (10:25)
== END 2018-03-19 12:31 | disposition short-term general hospital (02) ==
LOC: ER 08:38
DX: A41.9 Sepsis, unspecified organism (principal); N18.6 End stage renal disease; R00.0 Tachycardia, unspecified
CPT/HCPCS: 36415; 71045; 81001; 83605; 83735; 84484; 85025; 87040; 87077; 87088; 87186; 93005; 96365; 96375; 99285; C1758; J0743; J3370; J7040; J7050; 82040; 82247; 82310; 82374; 82435; 82565; 82947; 84075; 84132; 84155; 84295; 84450; 84460; 84520

== ENCOUNTER → 2018-03-19 | Outpatient (CLI) | payer MEDICARE ==
[~2018-03-19] MED LIST changes: +FURO-47 PO; +GLUC-198 PO; +HYDR-385 PO; +INSULIN; +OMEP-218 PO
== END ==
LOC: AMB 07:57
PROVIDERS: ATTEND Nurse Practitioner
DX: R41.82 Altered mental status, unspecified (principal); R50.9 Fever, unspecified; R73.9 Hyperglycemia, unspecified
CPT/HCPCS: A0425; A0429

== ENCOUNTER → 2018-03-19 | Outpatient (CLI) | payer MEDICARE | LOC: AMB 12:06 | PROVIDERS: ATTEND Nurse Practitioner | DX: A41.9 Sepsis, unspecified organism (principal); R73.9 Hyperglycemia, unspecified; N18.6 End stage renal disease | CPT/HCPCS: A0425; A0426 ==

== ENCOUNTER 2018-04-01 08:40 | Outpatient (RCR) | payer MEDICARE ==
[2018-03-26 10:52] LABS: PLATELET COUNT, AUTOMATED 179 K/uL (150-450)
[2018-03-26] MEDS: ADDVIAL IVPB PRN ×2 (12:38→12:44)
[2018-03-26] MEDS: VANCOMYCIN IVPB PRN ×2 (12:38→12:44)
[2018-03-26] MEDS: NS 0.9% IVPB PRN ×2 (12:38→12:44)
[2018-03-31] MEDS: ADD IVPB PRN (12:47)
[2018-03-31] MEDS: NS 0.9% IVPB PRN (12:47)
[2018-03-31] MEDS: VANCOMYCIN HCL IVPB PRN (12:47)
[~2018-04-01 08:40] MED LIST changes: +ADD IVPB ONE; +ADD IVPB PRN; +FURO-47 PO; +GLUC-198 PO; +HYDR-385 PO; +INSULIN; +NS 0.9% IVPB ONE; +NS 0.9% IVPB PRN; +VANCOMYCIN HCL IVPB ONE; +VANCOMYCIN HCL IVPB PRN
[2018-04-02] MEDS: NS 0.9% IVPB PRN (13:01)
[2018-04-02] MEDS: ADD IVPB PRN (13:01)
[2018-04-02] MEDS: VANCOMYCIN HCL IVPB PRN (13:01)
[2018-04-04] MEDS: VANCOMYCIN HCL IVPB PRN (12:22)
[2018-04-04] MEDS: ADD IVPB PRN (12:22)
[2018-04-04] MEDS: NS 0.9% IVPB PRN (12:22)
[2018-04-07] MEDS: NS 0.9% IVPB PRN ×2 (11:19→12:29)
[2018-04-07] MEDS: VANCOMYCIN HCL IVPB PRN ×2 (11:19→12:29)
[2018-04-07] MEDS: ADD IVPB PRN ×2 (11:19→12:29)
[2018-04-09 11:00] LABS: PLATELET COUNT, AUTOMATED 149 K/uL (150-450)
[2018-04-09] MEDS: NS 0.9% IVPB PRN (12:54)
[2018-04-09] MEDS: VANCOMYCIN HCL IVPB PRN (12:54)
[2018-04-09] MEDS: ADD IVPB PRN (12:54)
[2018-04-11] MEDS: VANCOMYCIN HCL IVPB PRN (12:30)
[2018-04-11] MEDS: ADD IVPB PRN (12:30)
[2018-04-11] MEDS: NS 0.9% IVPB PRN (12:30)
[2018-04-14] MEDS: VANCOMYCIN HCL IVPB PRN (12:41)
[2018-04-14] MEDS: NS 0.9% IVPB PRN (12:41)
[2018-04-14] MEDS: ADD IVPB PRN (12:41)
[2018-04-16 11:02] LABS: PLATELET COUNT, AUTOMATED 160 K/uL (150-450)
[2018-04-16] MEDS: VANCOMYCIN HCL IVPB PRN (12:50)
[2018-04-16] MEDS: NS 0.9% IVPB PRN (12:50)
[2018-04-16] MEDS: ADD IVPB PRN (12:50)
[2018-04-16] MEDS ORDERED: CALC-521 PO (12:51)
[2018-04-18] MEDS: VANCOMYCIN HCL IVPB PRN (12:44)
[2018-04-18] MEDS: NS 0.9% IVPB PRN (12:44)
[2018-04-18] MEDS: ADD IVPB PRN (12:44)
[2018-04-21] MEDS: VANCOMYCIN HCL IVPB PRN (12:34)
[2018-04-21] MEDS: ADD IVPB PRN (12:34)
[2018-04-21] MEDS: NS 0.9% IVPB PRN (12:34)
[2018-04-23 10:53] LABS: PLATELET COUNT, AUTOMATED 127 K/uL (150-450)
[2018-04-23] MEDS: NS 0.9% IVPB PRN (12:43)
[2018-04-23] MEDS: ADD IVPB PRN (12:43)
[2018-04-23] MEDS: VANCOMYCIN HCL IVPB PRN (12:43)
[2018-04-25] MEDS: NS 0.9% IVPB PRN (12:45)
[2018-04-25] MEDS: ADD IVPB PRN (12:45)
[2018-04-25] MEDS: VANCOMYCIN HCL IVPB PRN (12:45)
[2018-04-28 10:50] LABS: PLATELET COUNT, AUTOMATED 128 K/uL (150-450)
[2018-04-28] MEDS: NS 0.9% IVPB PRN (12:38)
[2018-04-28] MEDS: VANCOMYCIN IVPB PRN (12:38)
[2018-04-30] MEDS: NS 0.9% IVPB PRN (12:43)
[2018-04-30] MEDS: VANCOMYCIN IVPB PRN (12:43)
== END 2018-04-30 13:30 | disposition home or self-care (01) ==
LOC: SPU 08:40
PROVIDERS: ATTEND Internal Medicine Nephrology
DX: M86.171 Other acute osteomyelitis, right ankle and foot (principal); R65.20 Severe sepsis without septic shock; N18.6 End stage renal disease; E11.40 Type 2 diabetes mellitus with diabetic neuropathy, unspecified; Z99.2 Dependence on renal dialysis; I12.0 Hypertensive chronic kidney disease with stage 5 chronic kidney disease or end stage renal disease
CPT/HCPCS: 36415; 80202; 85007; 85025; 85027; 86140; 96365; J3370; J7050; 82040; 82247; 82310; 82374; 82435; 82565; 82947; 84075; 84132; 84155; 84295; 84450; 84460; 84520

== ENCOUNTER 2018-08-27 10:12 | Outpatient (RCR) | payer MEDICARE ==
[~2018-08-27 10:12] MED LIST changes: -ADD IVPB ONE; -ADD IVPB PRN; +FAMO20TA28 PO; +LIDOCAINE/SOD BICARB 8.4% SYR SC PRN; -NS 0.9% IVPB ONE; -NS 0.9% IVPB PRN; +PROMETHAZINE HCL 25 MG TAB PO PRN; +SEVE800T16 PO; -VANCOMYCIN HCL IVPB ONE; -VANCOMYCIN HCL IVPB PRN; +diphenhydr DIALYSIS 50 MG/ML IVP PRN
[2018-08-27] MEDS: HEPARIN (PORCINE) 1000 UNIT/ML (DIALYSIS) IVP PRN ×2 (10:22)
[2018-08-27] MEDS: LOPERAMIDE HCL 2 MG CAP PO PRN (10:22)
[2018-08-27] MEDS: DIALYSIS ACETAMINOPHEN 325 MG PO PRN (10:36)
[2018-09-01] MEDS: HEPARIN (PORCINE) 1000 UNIT/ML (DIALYSIS) IVP PRN ×2 (09:41)
[2018-09-03] MEDS: HEPARIN (PORCINE) 1000 UNIT/ML (DIALYSIS) IVP PRN ×2 (09:55)
[2018-09-05] MEDS: HEPARIN (PORCINE) 1000 UNIT/ML (DIALYSIS) IVP PRN ×2 (09:59→10:00)
[2018-09-08] MEDS: HEPARIN (PORCINE) 1000 UNIT/ML (DIALYSIS) IVP PRN ×2 (09:47)
[2018-09-10] MEDS: HEPARIN (PORCINE) 1000 UNIT/ML (DIALYSIS) IVP PRN ×2 (09:59)
[2018-09-10] MEDS: ALTEPLASE RECOMB 2 MG VIAL IVP PRN (13:04)
[2018-09-10] MEDS: WATER STERILE 10 ML VIAL IVP PRN (13:05)
[2018-09-12] MEDS: HEPARIN (PORCINE) 1000 UNIT/ML (DIALYSIS) IVP PRN ×2 (09:53)
[2018-09-15] MEDS: HEPARIN (PORCINE) 1000 UNIT/ML (DIALYSIS) IVP PRN ×2 (09:48)
[2018-09-17] MEDS: HEPARIN (PORCINE) 1000 UNIT/ML (DIALYSIS) IVP PRN ×2 (06:41)
[2018-09-17] MEDS: LOPERAMIDE HCL 2 MG CAP PO PRN (07:12)
[2018-09-17 07:50] LABS: PLATELET COUNT, AUTOMATED 168 K/uL (150-450)
[2018-09-19] MEDS: HEPARIN (PORCINE) 1000 UNIT/ML (DIALYSIS) IVP PRN ×2 (06:08→06:09)
[2018-09-22] MEDS: HEPARIN (PORCINE) 1000 UNIT/ML (DIALYSIS) IVP PRN ×2 (09:48)
[2018-09-24] MEDS: HEPARIN (PORCINE) 1000 UNIT/ML (DIALYSIS) IVP PRN ×2 (06:05)
[2018-09-24] MEDS ORDERED: BUME2TAB17 FT (08:59)
[2018-09-26] MEDS: HEPARIN (PORCINE) 1000 UNIT/ML (DIALYSIS) IVP PRN ×2 (06:05)
[2018-09-26] MEDS: SODIUM FERRIC GLUC 62.5 MG/5ML IVP PRN (07:28)
[2018-09-29] MEDS: HEPARIN (PORCINE) 1000 UNIT/ML (DIALYSIS) IVP PRN ×2 (10:06→10:07)
[2018-09-29] MEDS: SODIUM FERRIC GLUC 62.5 MG/5ML IVP PRN (11:30)
[2018-10-10] MEDS: HEPARIN (PORCINE) 1000 UNIT/ML (DIALYSIS) IVP PRN ×2 (10:03→10:04)
[2018-10-10] MEDS: LOPERAMIDE HCL 2 MG CAP PO PRN (13:08)
[2018-10-11] MEDS ORDERED: INSU100I30 SQ (11:56)
[2018-10-13] MEDS: HEPARIN (PORCINE) 1000 UNIT/ML (DIALYSIS) IVP PRN ×2 (10:13)
[2018-10-13] MEDS: LOPERAMIDE HCL 2 MG CAP PO PRN (10:15)
[2018-10-13] MEDS ORDERED: VANCOMYCIN IVPB ONE (11:20)
[2018-10-13] MEDS ORDERED: NS 0.9% IVPB ONE (11:20)
[2018-10-15] MEDS: HEPARIN (PORCINE) 1000 UNIT/ML (DIALYSIS) IVP PRN ×2 (09:52→09:53)
[2018-10-15 10:54] LABS: PLATELET COUNT, AUTOMATED 160 K/uL (150-450)
[2018-10-15] MEDS ORDERED: VANCOMYCIN 1 GM VIAL IVPB SCH (11:20)
[2018-10-17] MEDS: HEPARIN (PORCINE) 1000 UNIT/ML (DIALYSIS) IVP PRN ×2 (09:51)
[2018-10-20] MEDS: HEPARIN (PORCINE) 1000 UNIT/ML (DIALYSIS) IVP PRN ×2 (09:58→09:59)
[2018-10-22] MEDS: HEPARIN (PORCINE) 1000 UNIT/ML (DIALYSIS) IVP PRN ×2 (09:57)
[2018-10-22] MEDS ORDERED: SODIUM FERRIC GLUC 62.5 MG/5ML IVP PRN (10:00)
[2018-10-22] MEDS: SODIUM FERRIC GLUC 62.5 MG/5ML IVP PRN (12:14)
[2018-10-24] MEDS: HEPARIN (PORCINE) 1000 UNIT/ML (DIALYSIS) IVP PRN ×2 (09:57)
[2018-10-24] MEDS ORDERED: PARICALCITOL 2 MCG/ML VIAL IVP PRN (10:00)
[2018-10-27] MEDS: HEPARIN (PORCINE) 1000 UNIT/ML (DIALYSIS) IVP PRN ×2 (12:11)
[2018-10-27] MEDS: LOPERAMIDE HCL 2 MG CAP PO PRN (12:17)
[2018-10-27] MEDS: PARICALCITOL 2 MCG/ML VIAL IVP PRN (14:35)
[2018-10-29] MEDS: HEPARIN (PORCINE) 1000 UNIT/ML (DIALYSIS) IVP PRN ×2 (10:18)
[2018-10-29 11:34] LABS: PLATELET COUNT, AUTOMATED 166 K/uL (150-450)
[2018-10-29] MEDS: PARICALCITOL 2 MCG/ML VIAL IVP PRN (11:42)
[2018-10-29] MEDS: SODIUM FERRIC GLUC 62.5 MG/5ML IVP PRN (11:43)
[2018-11-03] MEDS: HEPARIN (PORCINE) 1000 UNIT/ML (DIALYSIS) IVP PRN ×2 (10:11)
[2018-11-03] MEDS: PARICALCITOL 2 MCG/ML VIAL IVP PRN (11:41)
[2018-11-05] MEDS: HEPARIN (PORCINE) 1000 UNIT/ML (DIALYSIS) IVP PRN ×2 (10:09)
[2018-11-05] MEDS: SODIUM FERRIC GLUC 62.5 MG/5ML IVP PRN (10:37)
[2018-11-05] MEDS: PARICALCITOL 2 MCG/ML VIAL IVP PRN (11:51)
[2018-11-07] MEDS: HEPARIN (PORCINE) 1000 UNIT/ML (DIALYSIS) IVP PRN ×2 (09:47→09:48)
[2018-11-07] MEDS: PARICALCITOL 2 MCG/ML VIAL IVP PRN (11:40)
[2018-11-10] MEDS: HEPARIN (PORCINE) 1000 UNIT/ML (DIALYSIS) IVP PRN ×2 (10:04)
[2018-11-10] MEDS: DIALYSIS ACETAMINOPHEN 325 MG PO PRN (12:48)
[2018-11-12] MEDS: HEPARIN (PORCINE) 1000 UNIT/ML (DIALYSIS) IVP PRN ×2 (06:08)
[2018-11-12] MEDS: PARICALCITOL 2 MCG/ML VIAL IVP PRN (07:30)
[2018-11-12] MEDS: SODIUM FERRIC GLUC 62.5 MG/5ML IVP PRN (07:30)
[2018-11-14] MEDS: HEPARIN (PORCINE) 1000 UNIT/ML (DIALYSIS) IVP PRN ×2 (09:58→09:59)
[2018-11-14] MEDS: PARICALCITOL 2 MCG/ML VIAL IVP PRN (11:31)
[2018-11-17] MEDS: HEPARIN (PORCINE) 1000 UNIT/ML (DIALYSIS) IVP PRN ×2 (06:04)
[2018-11-17] MEDS: PARICALCITOL 2 MCG/ML VIAL IVP PRN (08:12)
[2018-11-19] MEDS: HEPARIN (PORCINE) 1000 UNIT/ML (DIALYSIS) IVP PRN ×2 (10:01)
[2018-11-19] MEDS: SODIUM FERRIC GLUC 62.5 MG/5ML IVP PRN (10:44)
[2018-11-19] MEDS: PARICALCITOL 2 MCG/ML VIAL IVP PRN (10:44)
[2018-11-21] MEDS: HEPARIN (PORCINE) 1000 UNIT/ML (DIALYSIS) IVP PRN ×2 (10:08)
[2018-11-21] MEDS: PARICALCITOL 2 MCG/ML VIAL IVP PRN (10:43)
[2018-11-24] MEDS: HEPARIN (PORCINE) 1000 UNIT/ML (DIALYSIS) IVP PRN ×2 (10:05)
[2018-11-24] MEDS: PARICALCITOL 2 MCG/ML VIAL IVP PRN (10:39)
[2018-11-26] MEDS: HEPARIN (PORCINE) 1000 UNIT/ML (DIALYSIS) IVP PRN ×2 (10:09)
[2018-11-26] MEDS: PARICALCITOL 2 MCG/ML VIAL IVP PRN (10:36)
[2018-11-26] MEDS: SODIUM FERRIC GLUC 62.5 MG/5ML IVP PRN (10:36)
[2018-11-28] MEDS: HEPARIN (PORCINE) 1000 UNIT/ML (DIALYSIS) IVP PRN ×2 (10:17)
[2018-11-28] MEDS: PARICALCITOL 2 MCG/ML VIAL IVP PRN (11:27)
[2018-12-01] MEDS: HEPARIN (PORCINE) 1000 UNIT/ML (DIALYSIS) IVP PRN ×2 (09:59)
[2018-12-01] MEDS: PARICALCITOL 2 MCG/ML VIAL IVP PRN (10:31)
[2018-12-03] MEDS: HEPARIN (PORCINE) 1000 UNIT/ML (DIALYSIS) IVP PRN ×2 (09:37→09:40)
[2018-12-03] MEDS: PARICALCITOL 2 MCG/ML VIAL IVP PRN (11:04)
[2018-12-03] MEDS: SODIUM FERRIC GLUC 62.5 MG/5ML IVP PRN (11:04)
[2018-12-05] MEDS: HEPARIN (PORCINE) 1000 UNIT/ML (DIALYSIS) IVP PRN ×2 (10:17)
[2018-12-05] MEDS: PARICALCITOL 2 MCG/ML VIAL IVP PRN (10:47)
[2018-12-08] MEDS: HEPARIN (PORCINE) 1000 UNIT/ML (DIALYSIS) IVP PRN ×2 (10:11)
[2018-12-08] MEDS: PARICALCITOL 2 MCG/ML VIAL IVP PRN (12:06)
[2018-12-10] MEDS: HEPARIN (PORCINE) 1000 UNIT/ML (DIALYSIS) IVP PRN ×2 (10:20)
[2018-12-10 10:56] LABS: PLATELET COUNT, AUTOMATED 161 K/uL (150-450)
[2018-12-10] MEDS: PARICALCITOL 2 MCG/ML VIAL IVP PRN (12:16)
[2018-12-10] MEDS: SODIUM FERRIC GLUC 62.5 MG/5ML IVP PRN (12:16)
[2018-12-12] MEDS: HEPARIN (PORCINE) 1000 UNIT/ML (DIALYSIS) IVP PRN ×2 (10:07→10:08)
[2018-12-12] MEDS: PARICALCITOL 2 MCG/ML VIAL IVP PRN (10:31)
[2018-12-15] MEDS: HEPARIN (PORCINE) 1000 UNIT/ML (DIALYSIS) IVP PRN ×2 (10:14)
[2018-12-15] MEDS: PARICALCITOL 2 MCG/ML VIAL IVP PRN (12:00)
[2018-12-17] MEDS: HEPARIN (PORCINE) 1000 UNIT/ML (DIALYSIS) IVP PRN ×2 (10:24)
[2018-12-17] MEDS: SODIUM FERRIC GLUC 62.5 MG/5ML IVP PRN (11:57)
[2018-12-17] MEDS: PARICALCITOL 2 MCG/ML VIAL IVP PRN (11:57)
[2018-12-19] MEDS: HEPARIN (PORCINE) 1000 UNIT/ML (DIALYSIS) IVP PRN ×2 (10:13→10:14)
[2018-12-19] MEDS: LOPERAMIDE HCL 2 MG CAP PO PRN (10:24)
[2018-12-19] MEDS: PARICALCITOL 2 MCG/ML VIAL IVP PRN (11:40)
[2018-12-19] MEDS ORDERED: BUME2TAB17 PO (16:53)
[2018-12-22] MEDS: HEPARIN (PORCINE) 1000 UNIT/ML (DIALYSIS) IVP PRN ×2 (10:04)
[2018-12-22] MEDS: PARICALCITOL 2 MCG/ML VIAL IVP PRN (11:37)
[2018-12-24] MEDS: HEPARIN (PORCINE) 1000 UNIT/ML (DIALYSIS) IVP PRN ×2 (10:09→10:10)
[2018-12-24] MEDS: PARICALCITOL 2 MCG/ML VIAL IVP PRN (10:22)
[2018-12-24] MEDS: SODIUM FERRIC GLUC 62.5 MG/5ML IVP PRN (10:23)
[2018-12-24 10:47] LABS: PLATELET COUNT, AUTOMATED 170 K/uL (150-450)
[2018-12-24] MEDS: WATER STERILE 10 ML VIAL IVP PRN (13:12)
[2018-12-24] MEDS: ALTEPLASE RECOMB 2 MG VIAL IVP PRN (13:12)
[2018-12-26] MEDS: HEPARIN (PORCINE) 1000 UNIT/ML (DIALYSIS) IVP PRN ×2 (10:17→10:18)
[2018-12-26] MEDS: PARICALCITOL 2 MCG/ML VIAL IVP PRN (11:47)
[2019-01-05] MEDS: HEPARIN (PORCINE) 1000 UNIT/ML (DIALYSIS) IVP PRN ×2 (10:12)
[2019-01-05] MEDS: PARICALCITOL 2 MCG/ML VIAL IVP PRN (11:38)
[2019-01-07] MEDS: HEPARIN (PORCINE) 1000 UNIT/ML (DIALYSIS) IVP PRN ×2 (10:03)
[2019-01-07 10:33] LABS: PLATELET COUNT, AUTOMATED 135 K/uL (150-450)
[2019-01-07] MEDS: PARICALCITOL 2 MCG/ML VIAL IVP PRN (11:26)
[2019-01-07] MEDS: SODIUM FERRIC GLUC 62.5 MG/5ML IVP PRN (11:27)
[2019-01-09] MEDS: HEPARIN (PORCINE) 1000 UNIT/ML (DIALYSIS) IVP PRN ×2 (10:09)
[2019-01-12] MEDS: HEPARIN (PORCINE) 1000 UNIT/ML (DIALYSIS) IVP PRN ×2 (10:05→10:06)
[2019-01-12] MEDS: PARICALCITOL 2 MCG/ML VIAL IVP PRN (11:53)
[2019-01-14] MEDS: HEPARIN (PORCINE) 1000 UNIT/ML (DIALYSIS) IVP PRN ×2 (10:04→10:05)
[2019-01-14] MEDS: SODIUM FERRIC GLUC 62.5 MG/5ML IVP PRN (10:23)
[2019-01-14] MEDS: PARICALCITOL 2 MCG/ML VIAL IVP PRN (10:23)
[2019-01-16] MEDS: LOPERAMIDE HCL 2 MG CAP PO PRN (10:29)
[2019-01-16] MEDS: HEPARIN (PORCINE) 1000 UNIT/ML (DIALYSIS) IVP PRN ×2 (10:29)
[2019-01-16] MEDS: PARICALCITOL 2 MCG/ML VIAL IVP PRN (11:51)
[2019-01-19] MEDS: HEPARIN (PORCINE) 1000 UNIT/ML (DIALYSIS) IVP PRN ×2 (10:17)
[2019-01-19] MEDS: PARICALCITOL 2 MCG/ML VIAL IVP PRN (12:23)
[2019-01-21] MEDS: HEPARIN (PORCINE) 1000 UNIT/ML (DIALYSIS) IVP PRN ×2 (10:09)
[2019-01-21] MEDS: PARICALCITOL 2 MCG/ML VIAL IVP PRN (11:20)
[2019-01-21] MEDS: SODIUM FERRIC GLUC 62.5 MG/5ML IVP PRN (11:20)
[2019-01-23] MEDS: HEPARIN (PORCINE) 1000 UNIT/ML (DIALYSIS) IVP PRN ×2 (10:11→10:12)
[2019-01-23] MEDS: PARICALCITOL 2 MCG/ML VIAL IVP PRN (10:28)
[2019-01-26] MEDS: HEPARIN (PORCINE) 1000 UNIT/ML (DIALYSIS) IVP PRN ×2 (10:24)
[2019-01-26] MEDS: PARICALCITOL 2 MCG/ML VIAL IVP PRN (11:40)
[2019-01-28] MEDS: HEPARIN (PORCINE) 1000 UNIT/ML (DIALYSIS) IVP PRN ×2 (10:27→10:28)
[2019-01-28 11:09] LABS: PLATELET COUNT, AUTOMATED 148 K/uL (150-450)
[2019-01-28] MEDS: SODIUM FERRIC GLUC 62.5 MG/5ML IVP PRN (19:05)
[2019-01-30] MEDS: HEPARIN (PORCINE) 1000 UNIT/ML (DIALYSIS) IVP PRN ×2 (10:09)
[2019-01-30] MEDS: PARICALCITOL 2 MCG/ML VIAL IVP PRN (10:32)
[2019-02-02] MEDS: HEPARIN (PORCINE) 1000 UNIT/ML (DIALYSIS) IVP PRN ×2 (10:32)
[2019-02-02] MEDS: LOPERAMIDE HCL 2 MG CAP PO PRN (10:57)
[2019-02-02] MEDS: PARICALCITOL 2 MCG/ML VIAL IVP PRN (10:57)
[2019-02-04] MEDS: HEPARIN (PORCINE) 1000 UNIT/ML (DIALYSIS) IVP PRN ×2 (10:15)
[2019-02-04] MEDS: PARICALCITOL 2 MCG/ML VIAL IVP PRN (11:04)
[2019-02-04] MEDS: SODIUM FERRIC GLUC 62.5 MG/5ML IVP PRN (11:04)
[2019-02-06] MEDS: HEPARIN (PORCINE) 1000 UNIT/ML (DIALYSIS) IVP PRN ×2 (10:19)
[2019-02-06] MEDS: PARICALCITOL 2 MCG/ML VIAL IVP PRN (10:41)
[2019-02-09] MEDS: HEPARIN (PORCINE) 1000 UNIT/ML (DIALYSIS) IVP PRN ×2 (10:12)
[2019-02-09] MEDS: PARICALCITOL 2 MCG/ML VIAL IVP PRN (11:34)
[2019-02-11] MEDS: HEPARIN (PORCINE) 1000 UNIT/ML (DIALYSIS) IVP PRN ×2 (10:08)
[2019-02-11] MEDS: SODIUM FERRIC GLUC 62.5 MG/5ML IVP PRN (10:34)
[2019-02-11] MEDS: PARICALCITOL 2 MCG/ML VIAL IVP PRN (10:34)
[2019-02-13] MEDS: HEPARIN (PORCINE) 1000 UNIT/ML (DIALYSIS) IVP PRN ×2 (15:37→15:38)
[2019-02-13] MEDS: PARICALCITOL 2 MCG/ML VIAL IVP PRN (16:05)
[2019-02-16] MEDS: HEPARIN (PORCINE) 1000 UNIT/ML (DIALYSIS) IVP PRN ×2 (10:35→10:36)
[2019-02-16] MEDS: PARICALCITOL 2 MCG/ML VIAL IVP PRN (12:03)
[2019-02-18] MEDS: HEPARIN (PORCINE) 1000 UNIT/ML (DIALYSIS) IVP PRN ×2 (10:10)
[2019-02-18] MEDS: SODIUM FERRIC GLUC 62.5 MG/5ML IVP PRN (10:20)
[2019-02-18] MEDS: PARICALCITOL 2 MCG/ML VIAL IVP PRN (10:20)
[2019-02-20] MEDS: HEPARIN (PORCINE) 1000 UNIT/ML (DIALYSIS) IVP PRN ×2 (10:07)
[2019-02-20] MEDS: PARICALCITOL 2 MCG/ML VIAL IVP PRN (10:22)
[2019-02-23] MEDS: HEPARIN (PORCINE) 1000 UNIT/ML (DIALYSIS) IVP PRN ×2 (10:02→10:03)
[2019-02-23] MEDS: PARICALCITOL 2 MCG/ML VIAL IVP PRN (10:26)
[2019-02-25] MEDS: HEPARIN (PORCINE) 1000 UNIT/ML (DIALYSIS) IVP PRN ×2 (09:57)
[2019-02-25] MEDS: SODIUM FERRIC GLUC 62.5 MG/5ML IVP PRN (10:11)
[2019-02-25] MEDS: PARICALCITOL 2 MCG/ML VIAL IVP PRN (10:11)
[2019-02-27] MEDS: HEPARIN (PORCINE) 1000 UNIT/ML (DIALYSIS) IVP PRN ×2 (10:05)
[2019-02-27] MEDS: PARICALCITOL 2 MCG/ML VIAL IVP PRN (10:24)
[2019-03-02] MEDS: HEPARIN (PORCINE) 1000 UNIT/ML (DIALYSIS) IVP PRN ×2 (10:20)
[2019-03-02] MEDS: LOPERAMIDE HCL 2 MG CAP PO PRN (10:21)
[2019-03-02] MEDS: PARICALCITOL 2 MCG/ML VIAL IVP PRN (12:28)
[2019-03-04] MEDS: HEPARIN (PORCINE) 1000 UNIT/ML (DIALYSIS) IVP PRN ×2 (06:04)
[2019-03-04] MEDS: SODIUM FERRIC GLUC 62.5 MG/5ML IVP PRN (08:14)
[2019-03-04] MEDS: PARICALCITOL 2 MCG/ML VIAL IVP PRN (08:14)
[2019-03-06] MEDS: HEPARIN (PORCINE) 1000 UNIT/ML (DIALYSIS) IVP PRN ×2 (10:01)
[2019-03-06] MEDS: PARICALCITOL 2 MCG/ML VIAL IVP PRN (10:16)
[2019-03-09] MEDS: HEPARIN (PORCINE) 1000 UNIT/ML (DIALYSIS) IVP PRN ×2 (10:19)
[2019-03-09] MEDS: PARICALCITOL 2 MCG/ML VIAL IVP PRN (11:50)
[2019-03-11] MEDS: HEPARIN (PORCINE) 1000 UNIT/ML (DIALYSIS) IVP PRN ×2 (06:07→06:08)
[2019-03-11] MEDS: PARICALCITOL 2 MCG/ML VIAL IVP PRN (06:58)
[2019-03-11] MEDS: SODIUM FERRIC GLUC 62.5 MG/5ML IVP PRN (06:58)
[2019-03-13] MEDS: HEPARIN (PORCINE) 1000 UNIT/ML (DIALYSIS) IVP PRN ×2 (10:26)
[2019-03-13] MEDS: PARICALCITOL 2 MCG/ML VIAL IVP PRN (11:21)
[2019-03-16] MEDS: HEPARIN (PORCINE) 1000 UNIT/ML (DIALYSIS) IVP PRN ×2 (09:50)
[2019-03-16] MEDS: PARICALCITOL 2 MCG/ML VIAL IVP PRN (10:02)
[2019-03-18] MEDS: HEPARIN (PORCINE) 1000 UNIT/ML (DIALYSIS) IVP PRN ×2 (09:36)
[2019-03-18] MEDS: SODIUM FERRIC GLUC 62.5 MG/5ML IVP PRN (09:56)
[2019-03-18] MEDS: PARICALCITOL 2 MCG/ML VIAL IVP PRN (09:56)
[2019-03-18 10:03] LABS: PLATELET COUNT, AUTOMATED 131 K/uL (150-450)
[2019-03-20] MEDS: HEPARIN (PORCINE) 1000 UNIT/ML (DIALYSIS) IVP PRN ×2 (10:11→10:12)
[2019-03-20] MEDS: PARICALCITOL 2 MCG/ML VIAL IVP PRN (10:33)
[2019-03-23] MEDS: HEPARIN (PORCINE) 1000 UNIT/ML (DIALYSIS) IVP PRN ×2 (10:12)
[2019-03-23] MEDS: PARICALCITOL 2 MCG/ML VIAL IVP PRN (11:38)
[2019-03-25] MEDS: HEPARIN (PORCINE) 1000 UNIT/ML (DIALYSIS) IVP PRN ×2 (10:16→10:17)
[2019-03-25] MEDS: SODIUM FERRIC GLUC 62.5 MG/5ML IVP PRN (11:38)
[2019-03-25] MEDS: PARICALCITOL 2 MCG/ML VIAL IVP PRN (11:38)
[2019-03-27] MEDS: HEPARIN (PORCINE) 1000 UNIT/ML (DIALYSIS) IVP PRN ×2 (10:42)
[2019-03-27] MEDS: PARICALCITOL 2 MCG/ML VIAL IVP PRN (11:26)
[2019-03-27] MEDS: DIALYSIS ACETAMINOPHEN 325 MG PO PRN (13:20)
[2019-03-30] MEDS: HEPARIN (PORCINE) 1000 UNIT/ML (DIALYSIS) IVP PRN ×2 (10:22→10:23)
[2019-03-30] MEDS: PARICALCITOL 2 MCG/ML VIAL IVP PRN (11:34)
[2019-04-01] MEDS: HEPARIN (PORCINE) 1000 UNIT/ML (DIALYSIS) IVP PRN ×2 (09:44)
[2019-04-01] MEDS: PARICALCITOL 2 MCG/ML VIAL IVP PRN (12:23)
[2019-04-01] MEDS: SODIUM FERRIC GLUC 62.5 MG/5ML IVP PRN (12:23)
[2019-04-03] MEDS: HEPARIN (PORCINE) 1000 UNIT/ML (DIALYSIS) IVP PRN ×2 (10:13→10:14)
[2019-04-03] MEDS: PARICALCITOL 2 MCG/ML VIAL IVP PRN (10:24)
[2019-04-06] MEDS: HEPARIN (PORCINE) 1000 UNIT/ML (DIALYSIS) IVP PRN ×2 (10:23)
[2019-04-06] MEDS: PARICALCITOL 2 MCG/ML VIAL IVP PRN (11:41)
[2019-04-08] MEDS: HEPARIN (PORCINE) 1000 UNIT/ML (DIALYSIS) IVP PRN ×2 (06:12)
[2019-04-08] MEDS: PARICALCITOL 2 MCG/ML VIAL IVP PRN (07:18)
[2019-04-08] MEDS: SODIUM FERRIC GLUC 62.5 MG/5ML IVP PRN (07:18)
[2019-04-08 07:31] LABS: PLATELET COUNT, AUTOMATED 143 K/uL (150-450)
[2019-04-10] MEDS: HEPARIN (PORCINE) 1000 UNIT/ML (DIALYSIS) IVP PRN ×2 (10:12)
[2019-04-10] MEDS: PARICALCITOL 2 MCG/ML VIAL IVP PRN (10:31)
[2019-04-10] MEDS: LOPERAMIDE HCL 2 MG CAP PO PRN (10:31)
[2019-04-13] MEDS: HEPARIN (PORCINE) 1000 UNIT/ML (DIALYSIS) IVP PRN ×2 (10:16)
[2019-04-13] MEDS: PARICALCITOL 2 MCG/ML VIAL IVP PRN (11:21)
[2019-04-15] MEDS: HEPARIN (PORCINE) 1000 UNIT/ML (DIALYSIS) IVP PRN ×2 (10:14)
[2019-04-15] MEDS: PARICALCITOL 2 MCG/ML VIAL IVP PRN (10:37)
[2019-04-15] MEDS: SODIUM FERRIC GLUC 62.5 MG/5ML IVP PRN (10:37)
[2019-04-17] MEDS: HEPARIN (PORCINE) 1000 UNIT/ML (DIALYSIS) IVP PRN ×2 (10:07)
[2019-04-17] MEDS: PARICALCITOL 2 MCG/ML VIAL IVP PRN (10:32)
== END 2019-04-25 ==
LOC: DIAL 10:12
PROVIDERS: ATTEND Internal Medicine Nephrology
DX: E11.22 Type 2 diabetes mellitus with diabetic chronic kidney disease (principal); N18.6 End stage renal disease; I12.0 Hypertensive chronic kidney disease with stage 5 chronic kidney disease or end stage renal disease; I95.3 Hypotension of hemodialysis; D63.1 Anemia in chronic kidney disease; E55.9 Vitamin D deficiency, unspecified; E43 Unspecified severe protein-calorie malnutrition; Z86.14 Personal history of Methicillin resistant Staphylococcus aureus infection; Z89.411 Acquired absence of right great toe; Z86.718 Personal history of other venous thrombosis and embolism; Z99.2 Dependence on renal dialysis; Z79.4 Long term (current) use of insulin
CPT/HCPCS: 82040; 82108; 82247; 82310; 82374; 82465; 82565; 82728; 82947; 83036; 83540; 83550; 83970; 84075; 84100; 84132; 84295; 84439; 84443; 84460; 84478; 84520; 85018; 85025; 86580; 86706; 87340; 90999; A4216; A4657; A9270; G0472; J2501; J2916; J2997; 86803

== ENCOUNTER 2018-10-13 08:30 | Outpatient (RCR) | payer MEDICARE ==
[2018-10-10] MEDS: VANCOMYCIN IVPB PRN ×2 (12:08→12:31)
[2018-10-10] MEDS: [UNRECOGNIZED DRUG - OTHER] IVPB PRN ×2 (12:08→12:31)
[2018-10-10] MEDS: ERTAPENEM(*) 1 GM VIAL 0.5 GM in NS(*) 0.9% 50 ML BAG 50 ML IVPB SCH (13:30)
[2018-10-11] MEDS: NS(*) 0.9% 100 ML BAG 100 ML IVPB PRN (11:50)
[2018-10-11] MEDS: ERTAPENEM(*) 1 GM VIAL 0.5 GM in NS(*) 0.9% 50 ML BAG 50 ML IVPB SCH (11:50)
[2018-10-11 12:00] VITALS: BP 113/51
[2018-10-11 13:11] VITALS: BP 118/71
[2018-10-12] MEDS: NS(*) 0.9% 100 ML BAG 100 ML IVPB PRN (11:08)
[2018-10-12] MEDS: ERTAPENEM(*) 1 GM VIAL 0.5 GM in NS(*) 0.9% 50 ML BAG 50 ML IVPB SCH (11:08)
[2018-10-12 11:11] VITALS: BP 144/71
[2018-10-12 12:00] VITALS: BP 116/78
[~2018-10-13 08:30] MED LIST changes: +ADDVIAL IVPB PRN; +DEXTROSE 5%(*) 100 ML BAG 100 ML IVPB PRN; +NS 0.9% IVPB PRN; +NS(*) 0.9% 500 ML BAG 500 ML IV PRN; +VANCOMYCIN IVPB PRN; +WATER FOR INJ,STERILE 20 ML IVP PRN
[2018-10-13 09:43] LABS: PLATELET COUNT, AUTOMATED 169 K/uL (150-450)
[2018-10-13] MEDS ORDERED: VANCOMYCIN 1 GM VIAL IVPB SCH (11:45)
[2018-10-13] MEDS ORDERED: NS 0.9% IVPB ONE (13:00)
[2018-10-13] MEDS ORDERED: VANCOMYCIN IVPB ONE (13:00)
[2018-10-13] MEDS: ERTAPENEM(*) 1 GM VIAL 0.5 GM in NS(*) 0.9% 50 ML BAG 50 ML IVPB SCH (13:30)
[2018-10-13] MEDS: ALTEPLASE RECOMB 2 MG VIAL IVP PRN ×2 (17:09→17:10)
[2018-10-15] MEDS: ADDVIAL IVPB PRN (12:09)
[2018-10-15] MEDS: VANCOMYCIN IVPB PRN (12:09)
[2018-10-15] MEDS: NS 0.9% IVPB PRN (12:09)
[2018-10-17] MEDS: VANCOMYCIN IVPB PRN ×2 (12:05→12:28)
[2018-10-17] MEDS: NS 0.9% IVPB PRN ×2 (12:05→12:28)
[2018-10-17] MEDS: ADDVIAL IVPB PRN ×2 (12:05→12:28)
[2018-10-17] MEDS: ERTAPENEM(*) 1 GM VIAL 0.5 GM in NS(*) 0.9% 50 ML BAG 50 ML IVPB SCH (13:07)
== END 2018-10-13 19:00 | disposition home or self-care (01) ==
LOC: SPU 08:30
PROVIDERS: ATTEND Internal Medicine
DX: R78.81 Bacteremia (principal)
CPT/HCPCS: 71046; 80202; 85025; 86140; 96365; 96367; J1335; J2997; J3370; J7050; 82040; 82247; 82310; 82374; 82435; 82565; 82947; 84075; 84132; 84155; 84295; 84450; 84460; 84520; 96366; 96375

== ENCOUNTER 2018-10-13 09:59 | Outpatient (RCR) | payer MEDICARE ==
[~2018-10-13 09:59] MED LIST changes: -ADDVIAL IVPB PRN; -DEXTROSE 5%(*) 100 ML BAG 100 ML IVPB PRN; -NS 0.9% IVPB PRN; -NS(*) 0.9% 500 ML BAG 500 ML IV PRN; -VANCOMYCIN IVPB PRN; -WATER FOR INJ,STERILE 20 ML IVP PRN
[2018-10-13 11:38] VITALS: BP 117/74
[2018-10-13] MEDS ORDERED: NS 0.9% IVPB SCH (13:20)
[2018-10-13] MEDS ORDERED: VANCOMYCIN IVPB SCH (13:20)
[2018-10-15] MEDS ORDERED: VANCOMYCIN 1 GM VIAL IVPB SCH (11:35)
== END 2018-10-16 09:00 | disposition home or self-care (01) ==
LOC: SPU 09:59
PROVIDERS: ATTEND Internal Medicine
DX: Z02.9 Encounter for administrative examinations, unspecified (principal)

== ENCOUNTER → 2018-10-13 | Outpatient (CLI) | payer MEDICARE ==
[~2018-10-13] MED LIST changes: +BUM2 FT; +INSU100I30 SQ; -LIDOCAINE/SOD BICARB 8.4% SYR SC PRN; -PROMETHAZINE HCL 25 MG TAB PO PRN; -diphenhydr DIALYSIS 50 MG/ML IVP PRN
--- NOTE | 2018-10-13 15:40 | RADIOLOGY IMAGING REPORT ---
FACILITY: [facility] [place] PATIENT NAME: Serina Ferguson : 1955 MR: [id number] V: [id number] EXAM DATE: ORDERING PHYSICIAN: KITA JUNIOR TECHNOLOGIST: Location: [facility] [place] Patient: Serina Ferguson : 1955 Visit/Account:[id number] Date of Sevice: 10/13/2018 CHEST PA LAT Indication: Check position of PICC line. Comparison: Chest x-ray 03/19/2018 Findings: Lungs: There is blunting of the right and left costophrenic angle. Remaining portions of the lungs a re clear. Mediastinum/pulmonary vasculature: Heart size and pulmonary vasculature are normal. Bones/soft tissues: There is a left-sided PICC line with its tip at the confluence of the right and l eft innominate vein. There is right internal jugular tunneled dialysis catheter with its tip in the low superior vena cava in good position. IMPRESSION: 1. Left-sided PICC line with tip in the confluence of the right and left innominate veins in the sup erior vena cava. 2. Small bilateral pleural effusions. Report Dictated By: Alireza Taylor at 10/13/2018 3:32 PM Report E-Signed By: Alireza Taylor at 10/13/2018 3:33 PM WSN:[email or web address]
== END ==
LOC: RAD 14:57
PROVIDERS: ATTEND Internal Medicine Infectious Disease
DX: J90 Pleural effusion, not elsewhere classified (principal)
CPT/HCPCS: 71046

== ENCOUNTER 2018-10-16 08:05 | Outpatient (RCR) | payer MEDICARE ==
[2018-10-14] MEDS: ERTAPENEM(*) 1 GM VIAL 0.5 GM in NS(*) 0.9% 50 ML BAG 50 ML IVPB SCH (08:35)
[2018-10-14] MEDS: NS(*) 0.9% 100 ML BAG 100 ML IVPB PRN (08:36)
[2018-10-14 08:40] VITALS: BP 114/61
[~2018-10-16 08:05] MED LIST changes: +ALTEPLASE RECOMB 2 MG VIAL IVP PRN; +DEXTROSE 5%(*) 100 ML BAG 100 ML IVPB PRN; +HEPARIN FLSH (PORT) 500 UN/5ML IVP PRN; +LIDOCAINE/SOD BICARB 8.4% SYR ID PRN; +NS(*) 0.9% 500 ML BAG 500 ML IV PRN; +WATER FOR INJ,STERILE 20 ML IVP PRN
[2018-10-16] MEDS: NS(*) 0.9% 100 ML BAG 100 ML IVPB PRN (08:15)
[2018-10-16] MEDS: ERTAPENEM(*) 1 GM VIAL 0.5 GM in NS(*) 0.9% 50 ML BAG 50 ML IVPB SCH (08:16)
[2018-10-16 08:26] VITALS: BP 93/63
[2018-10-16 09:31] VITALS: BP 130/83
[2018-12-19] MEDS ORDERED: BUM2 PO (16:53)
== END 2019-01-11 ==
LOC: SPU 08:05
PROVIDERS: ATTEND Internal Medicine Infectious Disease
DX: M86.9 Osteomyelitis, unspecified (principal); N18.6 End stage renal disease; Z99.2 Dependence on renal dialysis; E11.8 Type 2 diabetes mellitus with unspecified complications; E11.65 Type 2 diabetes mellitus with hyperglycemia; E11.621 Type 2 diabetes mellitus with foot ulcer; E11.69 Type 2 diabetes mellitus with other specified complication; L97.509 Non-pressure chronic ulcer of other part of unspecified foot with unspecified severity
CPT/HCPCS: 96365; J1335; J1642; J7050

== ENCOUNTER → 2019-02-19 | Outpatient (CLI) | payer MEDICARE ==
[~2019-02-19] MED LIST changes: -ALTEPLASE RECOMB 2 MG VIAL IVP PRN; -BUM2 FT; +BUME2TAB17 FT; +BUME2TAB17 PO; -DEXTROSE 5%(*) 100 ML BAG 100 ML IVPB PRN; -HEPARIN FLSH (PORT) 500 UN/5ML IVP PRN; -LIDOCAINE/SOD BICARB 8.4% SYR ID PRN; -NS(*) 0.9% 500 ML BAG 500 ML IV PRN; -WATER FOR INJ,STERILE 20 ML IVP PRN
== END ==
LOC: LAB 16:44
PROVIDERS: ATTEND Nurse Practitioner
DX: L82.1 Other seborrheic keratosis (principal)
CPT/HCPCS: 88305